=== PATIENT | female | born 1990 | race Hispanic/Latino ===

== ENCOUNTER 2017-12-07 00:04 | Emergency (ER) | payer MEDICAID ==
[2012-03-31 19:16] VITALS: BP 132/64
--- NOTE | 2017-12-07 00:29 | ER ---
Nurse's Notes [facility] Name: Anastasia Childress Age: 27 yrs Sex: Female : 1990 Arrival Date: 12/07/2017 Time: 00:06 Bed 16 Private MD: Diagnosis: Vomiting;Abdominal tenderness;Dyspnea Presentation: 12/07 00:16 Presenting complaint: Patient states: nausea, dizziness and SOB. pt dx UTI and ak1 chlamydia "a few weeks ago but just barley got the meds today" pt stated her anxiety "has been really bad today". Transition of care: patient was not received from another setting of care. Onset of symptoms is unknown. Initial Sepsis Screen: Does the patient meet any 2 criteria? No. Patient's initial sepsis screen is negative. Does the patient have a suspected source of infection? No. Patient initial sepsis screen negative. Care prior to arrival: None. 00:16 Method Of Arrival: Ambulatory ak1 00:16 Acuity: MOISES 3 ak1 Triage Assessment: 00:18 General: Appears in no apparent distress. Behavior is calm, cooperative. 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 - Social history:: Smoking status: Patient/guardian denies using tobacco. Screenin:19 Abuse screen: Denies threats or abuse. Denies injuries from another. Nutritional ak1 screening: No deficits noted. Tuberculosis screening: No symptoms or risk factors identified. Fall Risk None identified. Assessment: 00:23 General: Appears in no apparent distress. comfortable, Behavior is calm, cooperative, aa1 appropriate for age. Pain: Complains of pain in abdomen Pain currently is 0 out of 10 on a pain scale. at worst was 9 out of 10 on a pain scale. Neuro: Level of Consciousness is awake, alert, obeys commands, Oriented to person, place, time, situation, Gait is steady. Respiratory: Airway is patent Respiratory effort is even, unlabored, Respiratory pattern is regular, symmetrical. GI: Abdomen is non-distended, Abd is soft and non tender X 4 quads. Reports nausea, vomiting. : No signs and/or symptoms were reported regarding the genitourinary system. EENT: No signs and/or symptoms were reported regarding the EENT system. Derm: Skin is intact, is healthy with good turgor, Skin is normal. Musculoskeletal: Circulation, motion, and sensation intact. Capillary refill < 3 seconds. 00:45 Reassessment: Patient appears in no apparent distress at this time. Patient is aa1 alert/active/playful, equal unlabored respirations, skin warm/dry/pink. Discussed d/c \\T\\ f/u instructions with pt; denies questions or concerns at this time. Vital Signs: 00:15 BP 120 / 77; Pulse 79; Resp 18; Temp 97.9(O); Pulse Ox 98% on R/A; Weight 65.77 kg (R); ak1 Height 4 ft. 11 in. (149.86 cm) (R); Pain 0/10; 00:15 Body Mass Index 29.29 (65.77 kg, 149.86 cm) ak1 ED Course: 00:06 Patient arrived in ED. es 00:13 Salas Mcleod MD is Attending Physician. mei 00:17 Triage completed. ak1 00:18 Kaylyn Stoddard, RN is Primary Nurse. aa1 00:18 Arm band placed on Patient placed in an exam room, on a stretcher, Patient notified of ak1 wait time. 00:19 Patient has correct armband on for positive identification. Bed in low position. Call ak1 light in reach. Side rails up X 1. Pulse ox on. NIBP on. 00:23 Urine collected: clean catch specimen, clear. aa1 00:45 No provider procedures requiring assistance completed. Patient did not have IV access aa1 during this emergency room visit. Administered Medications: 00:44 Drug: Zofran 4 mg Route: PO; aa1 00:44 Follow up: Response: Medication administered at discharge. aa1 Outcome: 00:29 Discharge ordered by . mei 00:45 Discharged to home ambulatory. aa1 00:45 Condition: good 00:45 Discharge instructions given to patient, Instructed on discharge instructions, follow up and referral plans. medication usage, Demonstrated understanding of instructions, follow-up care, medications, Prescriptions given X 4. 00:46 Patient left the ED. aa1 Signatures: Kaylyn Stoddard RN RN aa1 Salas Mcleod MD MD cha Salyer, Edna es Krenek, Amber RN RN ak1
--- NOTE | 2017-12-07 00:29 | EDPHYS ---
Physician Documentation [facility] Name: Anastasia Childress Age: 27 yrs Sex: Female : 1990 Arrival Date: 12/07/2017 Time: 00:06 Bed 16 Private MD: ED Physician Salas Mcleod HPI: 12/07 00:24 This 27 yrs old Female presents to ER via Ambulatory with complaints of mei Vomiting, Headache, Shortness Of Breath, Kidney problem. 00:24 The patient presents to the emergency department with nausea, vomiting, abdominal pain, mei of the epigastric area, right upper quadrant and left upper quadrant. Onset: The symptoms/episode began/occurred 2 day(s) ago. Possible causes: unknown. The symptoms are aggravated by nothing. The symptoms are alleviated by nothing. Associated signs and symptoms: The patient has no apparent associated signs or symptoms. Severity of symptoms: At their worst the symptoms were mild in the emergency department the symptoms are unchanged. The patient has not experienced similar symptoms in the past. 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 - Social history:: Smoking status: Patient/guardian denies using tobacco. ROS: 00:25 Constitutional: Negative for fever, chills, and weight loss, Eyes: Negative for injury, mei pain, redness, and discharge, ENT: Negative for injury, pain, and discharge, Neck: Negative for injury, pain, and swelling, Cardiovascular: Negative for chest pain, palpitations, and edema, Back: Negative for injury and pain, : Negative for injury, bleeding, discharge, and swelling, MS/Extremity: Negative for injury and deformity, Skin: Negative for injury, rash, and discoloration, Neuro: Negative for headache, weakness, numbness, tingling, and seizure, Psych: Negative for depression, anxiety, suicide ideation, homicidal ideation, and hallucinations, Allergy/Immunology: Negative for hives, rash, and allergies, Endocrine: Negative for neck swelling, polydipsia, polyuria, polyphagia, and marked weight changes, Hematologic/Lymphatic: Negative for swollen nodes, abnormal bleeding, and unusual bruising. 00:25 Respiratory: Positive for cough, with no reported sputum. 00:25 Abdomen/GI: Positive for abdominal pain, of the epigastric area, right upper quadrant and left upper quadrant. Exam: 00:25 Constitutional: This is a well developed, well nourished patient who is awake, alert, mei and in no acute distress. Head/Face: Normocephalic, atraumatic. Eyes: Pupils equal round and reactive to light, extra-ocular motions intact. Lids and lashes normal. Conjunctiva and sclera are non-icteric and not injected. Cornea within normal limits. Periorbital areas with no swelling, redness, or edema. ENT: Nares patent. No nasal discharge, no septal abnormalities noted. Tympanic membranes are normal and external auditory canals are clear. Oropharynx with no redness, swelling, or masses, exudates, or evidence of obstruction, uvula midline. Mucous membranes moist. Neck: Trachea midline, no thyromegaly or masses palpated, and no cervical lymphadenopathy. Supple, full range of motion without nuchal rigidity, or vertebral point tenderness. No Meningismus. Chest/axilla: Normal chest wall appearance and motion. Nontender with no deformity. No lesions are appreciated. Cardiovascular: Regular rate and rhythm with a normal S1 and S2. No gallops, murmurs, or rubs. Normal PMI, no JVD. No pulse deficits. Respiratory: Lungs have equal breath sounds bilaterally, clear to auscultation and percussion. No rales, rhonchi or wheezes noted. No increased work of breathing, no retractions or nasal flaring. Back: No spinal tenderness. No costovertebral tenderness. Full range of motion. Skin: Warm, dry with normal turgor. Normal color with no rashes, no lesions, and no evidence of cellulitis. MS/ Extremity: Pulses equal, no cyanosis. Neurovascular intact. Full, normal range of motion. Neuro: Awake and alert, GCS 15, oriented to person, place, time, and situation. Cranial nerves II-XII grossly intact. Motor strength 5/5 in all extremities. Sensory grossly intact. Cerebellar exam normal. Normal gait. Psych: Awake, alert, with orientation to person, place and time. Behavior, mood, and affect are within normal limits. 00:25 Abdomen/GI: Inspection: abdomen appears normal, Bowel sounds: normal, Palpation: mild abdominal tenderness, in the epigastric area, right upper quadrant and left upper quadrant, Liver: no appreciated palpable abnormalities, Hernia: not appreciated. Vital Signs: 00:15 BP 120 / 77; Pulse 79; Resp 18; Temp 97.9(O); Pulse Ox 98% on R/A; Weight 65.77 kg (R); ak1 Height 4 ft. 11 in. (149.86 cm) (R); Pain 0/10; 00:15 Body Mass Index 29.29 (65.77 kg, 149.86 cm) ak1 MDM: 00:13 Patient medically screened. [facility] 00:27 Data reviewed: vital signs, nurses notes, lab test result(s), urinalysis. [facility] 12/07 00:29 Order name: Urine Dipstick--Ancillary (enter results) [facility] 12/07 00:29 Order name: Urine --Ancillary (enter results) [facility] 12/07 00:24 Order name: Urine Dipstick-Ancillary (obtain specimen); Complete Time: 00:27 [facility] 12/07 00:24 Order name: Urine Test (obtain specimen); Complete Time: 00:27 [facility] Administered Medications: 00:44 Drug: Zofran 4 mg Route: PO; aa1 00:44 Follow up: Response: Medication administered at discharge. aa1 Disposition: 12/07/17 00:29 Discharged to Home. Impression: Vomiting, Abdominal tenderness, Dyspnea. - Condition is Stable. - Discharge Instructions: Abdominal Pain, Adult, Nausea and Vomiting, Nausea and Vomiting, [id number]. - Prescriptions for Bentyl 20 mg Oral Tablet - take 1 tablet by ORAL route every 6 hours As needed; 20 tablet. Pepcid 20 mg Oral Tablet - take 1 tablet by ORAL route every 12 hours for 10 days; 20 tablet. Zofran 4 mg Oral Tablet - take 1 tablet by ORAL route every 12 hours As needed; 14 tablet. Zithromax 1 gram Oral Packet - take 1 gram by ORAL route one time as a single dose; 1 packet. - Medication Reconciliation Form, Thank You Letter, Antibiotic Education, Prescription Opioid Use form. - Follow up: Private Physician; When: 2 - 3 days; Reason: Recheck today's complaints, Continuance of care, Re-evaluation by your physician. - Problem is new. - Symptoms have improved. Signatures: Dispatcher [employer] Kaylyn Mathias, RN RN aa1 Salas Mcleod MD MD cha Krenek, Amber RN RN ak1
[2017-12-07] MEDS ORDERED: ONDANSETRON 4 MG (ODT) TAB ONE (00:37)
[2017-12-07 01:56] LABS: Urine Blood NEGATIVE (NEG); Urine Glucose NEGATIVE (NEG); Urine Protein NEGATIVE (NEG); Urine pH 6.5 (5.0-7.0)
== END 2017-12-07 00:46 | disposition home or self-care (01) ==
LOC: ER 00:04
DX: R10.819 Abdominal tenderness, unspecified site (principal); R06.00 Dyspnea, unspecified; F32.9 Major depressive disorder, single episode, unspecified; F41.9 Anxiety disorder, unspecified; Z85.41 Personal history of malignant neoplasm of cervix uteri; Z88.1 Allergy status to other antibiotic agents; Z88.2 Allergy status to sulfonamides
CPT/HCPCS: 81003; 81025; 99284

== ENCOUNTER 2018-02-08 20:59 | Emergency (ER) | payer MEDICAID ==
[2018-02-08 21:42] LABS: Urine Blood NEGATIVE (NEG); Urine Glucose NEGATIVE (NEG); Urine Protein NEGATIVE (NEG)
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
[2018-02-09 08:33] VITALS: BP 111/68; TEMP 98.1; O2SAT 100
== END 2018-02-08 22:05 | disposition home or self-care (01) ==
LOC: ER 20:59
DX: S40.022A Contusion of left upper arm, initial encounter (principal); V49.9XXA Car occupant (driver) (passenger) injured in unspecified traffic accident, initial encounter; Y92.410 Unspecified street and highway as the place of occurrence of the external cause; R35.0 Frequency of micturition; Z88.1 Allergy status to other antibiotic agents; Z88.2 Allergy status to sulfonamides; F41.9 Anxiety disorder, unspecified; G93.5 Compression of brain; F32.9 Major depressive disorder, single episode, unspecified; G43.909 Migraine, unspecified, not intractable, without status migrainosus; Z85.41 Personal history of malignant neoplasm of cervix uteri
CPT/HCPCS: 81003; 81025; 99281

== ENCOUNTER 2018-02-17 17:26 | Emergency (ER) | payer MEDICAID ==
[2018-02-17] MEDS ORDERED: ONDANSETRON 4 MG (ODT) TAB ONE (18:41)
[2018-02-17] MEDS ORDERED: KETOROLAC 30 MG/ML INJ ONE (18:41)
--- NOTE | 2018-02-17 18:59 | RAD REPORT ---
EXAM DESCRIPTION: RAD - Chest Pa And Lat (2 Views) - 02/17/2018 6:46 pm CLINICAL HISTORY: CHEST PAIN Chest pain. COMPARISON: Chest Single View dated 10/04/2016; Chest Single View dated 12/24/2015; CHEST SINGLE VIEW d ated 01/29/2013; CHEST SINGLE VIEW dated 12/10/2012Chest Single View dated 10/04/2016; Chest Single View dated 12/24/2015; CHEST SINGLE VIEW dated 01/29/2013; CHEST SINGLE VIEW dated 12/10/2012; Abdomen Pelvis W Contrast dated 05/24/2017 FINDINGS: The lungs are clear. The heart is normal in size. No displaced fractures. IMPRESSION: No acute or concerning finding suspected.
--- NOTE | 2018-02-17 20:21 | EDPHYS ---
Physician Documentation [facility] Name: Anastasia Childress Age: 28 yrs Sex: Female : 1990 Arrival Date: 02/17/2018 Time: 17:29 Bed 17 Private MD: Fred Godinez E ED Physician Jovani Vital HPI: 02/17 18:27 This 28 yrs old Female presents to ER via Ambulatory with complaints of Back cp Pain. 18:27 The patient presents with pain that is acute, with no known mechanism of injury. cp 18:27 The symptoms are located in the mid back with pain radiating around to bilateral chest. cp 18:27 Onset: The symptoms/episode began/occurred today. Associated signs and symptoms: cp Pertinent positives: nausea, Pertinent negatives: abdominal pain, fever, incontinence, numbness, tingling, vomiting, weakness. 18:27 The problem was sustained from unknown cause. Modifying factors: the patient symptoms cp are aggravated by deep breathing. Severity of symptoms: in the emergency department the symptoms are unchanged, despite home interventions. 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 - Social history:: Smoking status: Patient/guardian denies using tobacco. - Ebola Screening: : Patient negative for fever greater than or equal to 101.5 degrees Fahrenheit, and additional compatible Ebola Virus Disease symptoms Patient denies exposure to infectious person Patient denies travel to an Ebola-affected area in the 21 days before illness onset No symptoms or risks identified at this time. ROS: 18:30 Constitutional: Negative for body aches, chills, fever, poor PO intake. cp 18:30 Eyes: Negative for injury, pain, redness, and discharge. cp Exam: 18:35 ECG was reviewed by the Attending Physician. cp 18:38 Constitutional: The patient appears in no acute distress, alert, awake, non-toxic, well cp developed, well nourished. 18:38 Head/Face: Normocephalic, atraumatic. cp 18:38 Eyes: Pupils equal round and reactive to light, extra-ocular motions intact. Lids and lashes normal. Conjunctiva and sclera are non-icteric and not injected. Cornea within normal limits. Periorbital areas with no swelling, redness, or edema. ENT: Nares patent. No nasal discharge, no septal abnormalities noted. Tympanic membranes are normal and external auditory canals are clear. Oropharynx with no redness, swelling, or masses, exudates, or evidence of obstruction, uvula midline. Mucous membranes moist. 18:38 Neck: External neck: tenderness, that is mild, of the right occiput, ROM/movement: is normal, is supple, without pain, no range of motions limitations, no nuchal rigidity. 18:38 Chest/axilla: Inspection: normal, Palpation: crepitus, is not appreciated, tenderness, is not appreciated. 18:38 Cardiovascular: Rate: normal, Rhythm: regular, Pulses: Pulses are 2+ in right radial artery and left radial artery. Heart sounds: murmur, not appreciated, rub, not appreciated, gallop, not appreciated, Edema: is not appreciated, JVD: is not appreciated. 18:38 Respiratory: the patient does not display signs of respiratory distress, Respirations: normal, no use of accessory muscles, no retractions, no splinting, no tachypnea, labored breathing, is not present, Breath sounds: are clear throughout, no decreased breath sounds, no stridor, no wheezing. 18:38 Abdomen/GI: Inspection: abdomen appears normal, Bowel sounds: active, all quadrants, Palpation: abdomen is soft and non-tender, in all quadrants, rebound tenderness, is not appreciated, voluntary guarding, is not appreciated, involuntary guarding, is not appreciated. 18:38 Back: pain, that is mild, of the left subscapular area, right subscapular area, left mid back and right mid back, ROM is normal. 18:38 Skin: cellulitis, is not appreciated, no rash present. 18:38 Neuro: Orientation: to person, place \T\ time. Mentation: lucid, able to follow commands, Cerebellar function: is grossly normal, Motor: moves all fours, strength is normal, Sensation: no obvious gross deficits. Vital Signs: 17:41 BP 116 / 67; Pulse 82; Resp 14; Temp 97.4(TE); Pulse Ox 100% on R/A; Weight 65.77 kg lk1 (R); Height 4 ft. 11 in. (149.86 cm) (R); Pain 7/10; 19:53 BP 115 / 57; Pulse 59; Resp 16 S; Pulse Ox 100% on R/A; jd3 20:43 BP 116 / 70; Pulse 60; Resp 16; Pulse Ox 100% on R/A; mw2 17:41 Body Mass Index 29.29 (65.77 kg, 149.86 cm) lk1 MDM: 17:55 Patient medically screened. cp 20:18 Data reviewed: vital signs, nurses notes, lab test result(s), EKG, radiologic studies, cp plain films. 20:18 Test interpretation: by ED physician or midlevel provider: ECG, plain radiologic cp studies. Counseling: I had a detailed discussion with the patient and/or guardian regarding: the historical points, exam findings, and any diagnostic results supporting the discharge/admit diagnosis, lab results, radiology results, the need for outpatient follow up, a family practitioner, to return to the emergency department if symptoms worsen or persist or if there are any questions or concerns that arise at home. 02/17 18:47 Order name: Urine Dipstick--Ancillary (enter results) 02/17 18:47 Order name: Urine --Ancillary (enter results) ag 02/17 18:24 Order name: XRAY Chest Pa And Lat (2 Views); Complete Time: 19:55 cp 02/17 19:56 Interpretation: Report reviewed. 02/17 18:24 Order name: EKG; Complete Time: 18:25 cp 02/17 18:24 Order name: Urine Dipstick-Ancillary (obtain specimen); Complete Time: 18:47 cp 02/17 18:24 Order name: Urine Test (obtain specimen); Complete Time: 18:46 cp 02/17 18:24 Order name: EKG - Nurse/Tech; Complete Time: 18:46 cp 02/17 20:00 Order name: PO challenge; Complete Time: 20:13 cp EC:35 Rate is 64 beats/min. Rhythm is regular. NE interval is normal. QRS interval is cp prolonged at 104 msec. QT interval is normal. No ST changes noted. Interpreted by me. Reviewed by me. Administered Medications: 18:54 Drug: TORadol 60 mg Route: IM; Site: right deltoid; hb 20:13 Follow up: Response: No adverse reaction jd3 18:54 Drug: Zofran 4 mg Route: PO; hb 20:13 Follow up: Response: No adverse reaction jd3 Disposition: 02/17/18 20:21 Discharged to Home. Impression: Back Pain, Other chest pain. - Condition is Stable. - Discharge Instructions: Back Pain, Adult, Nonspecific Chest Pain. - Prescriptions for Naprosyn 500 mg Oral Tablet - take 1 tablet by ORAL route 2 times per day take with food; 20 tablet. Pepcid 20 mg Oral Tablet - take 1 tablet by ORAL route every 12 hours for 5 days; 10 tablet. Zofran 4 mg Oral Tablet - take 1 tablet by ORAL route every 12 hours As needed; 20 tablet. - Medication Reconciliation Form, Thank You Letter, Antibiotic Education, Prescription Opioid Use form. - Follow up: Fred Godinez MD; When: 1 - 2 days; Reason: Recheck today's complaints. - Problem is new. - Symptoms have improved. Addendum: 02/24/2018 11:30 Co-signature as Attending Physician, Jovani Vital MD I agree with the assessment and k dr plan of care. Signatures: Dispatcher [employer] EDMS Jovani Vital MD MD [facility] Salas Mooney PA PA cp Elizabeth Soto RN RN lk1 Paulina Pretty RN RN Donny Wilson RN RN jd3 Corrections: (The following items were deleted from the chart) 02/17 21:12 20:21 02/17/2018 20:21 Discharged to Home. Impression: Back Pain; Other chest pain. jd3 Condition is Stable. Forms are Medication Reconciliation Form, Thank You Letter, Antibiotic Education, Prescription Opioid Use. Follow up: Fred Godinez; When: 1 - 2 days; Reason: Recheck today's complaints. Problem is new. Symptoms have improved. cp
--- NOTE | 2018-02-17 20:21 | ER ---
Nurse's Notes [facility] Name: Anastasia Childress Age: 28 yrs Sex: Female : 1990 Arrival Date: 02/17/2018 Time: 17:29 Bed 17 Private MD: Fred Godinez E Diagnosis: Back Pain;Other chest pain Presentation: 02/17 17:39 Presenting complaint: Patient states: "I have been getting a bad pain in my upper back lk1 and in my kidneys. When I breath the pain in under my ribs. I am dehydrated too and I feel like I want to throw up.". Transition of care: patient was not received from another setting of care. Onset of symptoms was February 13, 2018. Risk Assessment: Do you want to hurt yourself or someone else? Patient reports no desire to harm self or others. Initial Sepsis Screen: Does the patient meet any 2 criteria? No. Patient's initial sepsis screen is negative. Does the patient have a suspected source of infection? No. Patient's initial sepsis screen is negative. Care prior to arrival: None. 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 - Social history:: Smoking status: Patient/guardian denies using tobacco. - Ebola Screening: : Patient negative for fever greater than or equal to 101.5 degrees Fahrenheit, and additional compatible Ebola Virus Disease symptoms Patient denies exposure to infectious person Patient denies travel to an Ebola-affected area in the 21 days before illness onset No symptoms or risks identified at this time. Screenin:30 Abuse screen: Denies threats or abuse. Denies injuries from another. Nutritional hb screening: No deficits noted. Tuberculosis screening: No symptoms or risk factors identified. Fall Risk None identified. Assessment: 18:30 General: Appears in no apparent distress. Behavior is calm, cooperative. Pain: hb Complains of pain in back Pain currently is 7 out of 10 on a pain scale. Neuro: Level of Consciousness is awake, alert, obeys commands, Oriented to person, place, time, situation. Cardiovascular: Heart tones S1 S2 present Capillary refill < 3 seconds Patient's skin is warm and dry. Respiratory: Airway is patent Trachea midline Respiratory effort is even, unlabored, Respiratory pattern is regular, symmetrical, Breath sounds are clear bilaterally. GI: No signs and/or symptoms were reported involving the gastrointestinal system. : No signs and/or symptoms were reported regarding the genitourinary system. EENT: No signs and/or symptoms were reported regarding the EENT system. Derm: No signs and/or symptoms reported regarding the dermatologic system. Skin is intact, is healthy with good turgor, Skin is pink, warm \\T\\ dry. Musculoskeletal: Reports pain in back. 19:26 Reassessment: Patient appears in no apparent distress at this time. No changes from jd3 previously documented assessment. Patient and/or family updated on plan of care and expected duration. Pain level reassessed. Patient is alert, oriented x 3, equal unlabored respirations, skin warm/dry/pink. awaiting results and disposition from provider. 20:30 Reassessment: Patient appears in no apparent distress at this time. No changes from jd3 previously documented assessment. Patient and/or family updated on plan of care and expected duration. Pain level reassessed. Patient is alert, oriented x 3, equal unlabored respirations, skin warm/dry/pink. 21:06 Reassessment: Patient appears in no apparent distress at this time. Patient and/or jd3 family updated on plan of care and expected duration. Pain level reassessed. Patient is alert, oriented x 3, equal unlabored respirations, skin warm/dry/pink. pt reported understanding of discharge instructions, even and steady gait upon discharge. Patient states feeling better. Vital Signs: 17:41 BP 116 / 67; Pulse 82; Resp 14; Temp 97.4(TE); Pulse Ox 100% on R/A; Weight 65.77 kg lk1 (R); Height 4 ft. 11 in. (149.86 cm) (R); Pain 7/10; 19:53 BP 115 / 57; Pulse 59; Resp 16 S; Pulse Ox 100% on R/A; jd3 20:43 BP 116 / 70; Pulse 60; Resp 16; Pulse Ox 100% on R/A; mw2 17:41 Body Mass Index 29.29 (65.77 kg, 149.86 cm) lk1 ED Course: 17:29 Patient arrived in ED. mr 17:29 Fred oGdinez MD is Private Physician. mr 17:40 Triage completed. lk1 17:42 Arm band placed on right wrist. lk1 17:55 Salas Mooney PA is PHCP. cp 17:55 Jovani Vital MD is Attending Physician. cp 18:26 Paulina Pretty, RN is Primary Nurse. hb 18:30 Patient has correct armband on for positive identification. Placed in gown. Bed in low hb position. Call light in reach. Side rails up X 1. 18:45 Patient moved to radiology via wheelchair. bb2 18:45 X-ray completed. Patient tolerated procedure well. bb2 18:46 XRAY Chest Pa And Lat (2 Views) In Process Unspecified. EDMS 18:46 Patient moved back from radiology. bb2 18:47 Urine collected: clean catch specimen, clear, EKG done, by ED staff, reviewed by Jovani Vital MD. 18:48 Patient has correct armband on for positive identification. Placed in gown. Bed in low mh5 position. Call light in reach. Side rails up X 1. Warm blanket given. night monitor on. Pulse ox on. NIBP on. 19:05 Primary Nurse role handed off by Paulina Pretty RN jd3 19:05 Donny Wilson RN is Primary Nurse. jd3 20:20 Fred Godinez MD is Referral Physician. cp 21:05 No provider procedures requiring assistance completed. Patient did not have IV access jd3 during this emergency room visit. Administered Medications: 18:54 Drug: TORadol 60 mg Route: IM; Site: right deltoid; hb 20:13 Follow up: Response: No adverse reaction jd3 18:54 Drug: Zofran 4 mg Route: PO; hb 20:13 Follow up: Response: No adverse reaction jd3 Outcome: 20:21 Discharge ordered by . cp 21:06 Discharged to home ambulatory. jd3 21:06 Condition: stable 21:06 Discharge instructions given to patient, Instructed on discharge instructions, follow up and referral plans. medication usage, Demonstrated understanding of instructions, follow-up care, medications, Prescriptions given X 3. 21:12 Patient left the ED. jd3 Signatures: Dispatcher [employer] EDMS Nessa Cuenca, RAYRAY Marina cp, Leah, RN RN lk1 Paulina Pretty RN RN Nessa La [facility] Donny Wilson RN RN jd3 Naida Lewis [facility] Blanka Lee [facility]
[2018-02-17 20:37] LABS: Urine Blood NEGATIVE (NEG); Urine Glucose NEGATIVE (NEG); Urine Protein NEGATIVE (NEG); Urine Specific Gravity 1.015 (1.005-1.030)
[2018-02-17 21:15] VITALS: TEMP 97.4; O2SAT 100
[2018-02-17 21:17] VITALS: BP 116/70
--- NOTE | 2018-02-18 06:24 | EKG ---
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
== END 2018-02-17 21:12 | disposition home or self-care (01) ==
LOC: ER 17:26
DX: M54.9 Dorsalgia, unspecified (principal); R07.89 Other chest pain; Z88.1 Allergy status to other antibiotic agents; Z88.2 Allergy status to sulfonamides; Z85.41 Personal history of malignant neoplasm of cervix uteri
CPT/HCPCS: 71046; 81003; 81025; 93005; 96372; 99284

== ENCOUNTER 2018-04-09 16:13 | Emergency (ER) | payer MEDICAID ==
--- NOTE | 2018-04-09 16:53 | ER ---
Nurse's Notes [facility] Name: Anastasia Childress Age: 28 yrs Sex: Female : 1990 Arrival Date: 04/09/2018 Time: 16:16 Bed 14 Private MD: Fred Godinez E Diagnosis: Nasal congestion Presentation: 04/09 16:24 Presenting complaint: Patient states: Cough congestion for 2 days. Transition of care: aj patient was not received from another setting of care. Onset of symptoms was April 07, 2018. Risk Assessment: Do you want to hurt yourself or someone else? Patient reports no desire to harm self or others. Initial Sepsis Screen: Does the patient meet any 2 criteria? No. Patient's initial sepsis screen is negative. Does the patient have a suspected source of infection? No. Patient's initial sepsis screen is negative. Care prior to arrival: None. 16:24 Method Of Arrival: Ambulatory 16:24 Acuity: MOISES 4 aj Triage Assessment: 16:26 General: Appears in no apparent distress. comfortable, Behavior is calm, cooperative, aj appropriate for age. Pain: Denies pain. EENT: Reports nasal congestion nasal discharge. Neuro: Level of Consciousness is awake, alert, obeys commands, Oriented to person, place, time, situation, Appropriate for age. Respiratory: Reports cough that is Breath sounds are clear bilaterally. Derm: Skin is intact, is healthy with good turgor, Skin is pink, warm \T\ dry. normal. 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 - Social history:: Smoking status: Patient uses tobacco products, denies chronic smoking, but will smoke occasionally. - Ebola Screening: : Patient negative for fever greater than or equal to 101.5 degrees Fahrenheit, and additional compatible Ebola Virus Disease symptoms Patient denies exposure to infectious person Patient denies travel to an Ebola-affected area in the 21 days before illness onset No symptoms or risks identified at this time. Screenin:48 Abuse screen: Denies threats or abuse. Nutritional screening: No deficits noted. tl3 Tuberculosis screening: No symptoms or risk factors identified. Fall Risk None identified. Assessment: 16:48 General: Appears uncomfortable, well groomed, well developed, well nourished, Behavior tl3 is calm, cooperative, appropriate for age. Pain: Complains of pain in sore throat. Cardiovascular: Heart tones S1 S2 present. Respiratory: Airway is patent Respiratory effort is even, unlabored, Respiratory pattern is regular, symmetrical, Breath sounds are clear bilaterally. GI: No signs and/or symptoms were reported involving the gastrointestinal system. : No signs and/or symptoms were reported regarding the genitourinary system. EENT: Oral mucosa is moist. Throat is reddened. Derm: Musculoskeletal: 16:52 EENT: Reports nasal congestion since two days nasal discharge. tl3 17:04 Reassessment: Patient appears in no apparent distress at this time. No changes from tl3 previously documented assessment. Patient and/or family updated on plan of care and expected duration. Pain level reassessed. Patient is alert, oriented x 3, equal unlabored respirations, skin warm/dry/pink. Vital Signs: 16:26 BP 116 / 74; Pulse 94; Resp 18; Temp 98.5; Pulse Ox 100% on R/A; Weight 68.95 kg; aj Height 4 ft. 11 in. (149.86 cm); 17:04 BP 132 / 74; Pulse 87; Resp 18; Pulse Ox 100% on R/A; tl3 16:26 Body Mass Index 30.70 (68.95 kg, 149.86 cm) aj ED Course: 16:16 Patient arrived in ED. mr 16:16 Fred Godinez MD is Private Physician. mr 16:23 Jeni Cannon FNP-C [facility]. snw 16:23 Dominic Pendleton MD is Attending Physician. snw 16:25 Triage completed. aj 16:26 Arm band placed on right wrist. Patient placed in an exam room. aj 16:37 Georgette Martinez, RN is Primary Nurse. tl3 16:48 Patient has correct armband on for positive identification. Pulse ox on. NIBP on. tl3 16:48 No provider procedures requiring assistance completed. Patient did not have IV access tl3 during this emergency room visit. 16:52 Fred Godinez MD is Referral Physician. snw Administered Medications: No medications were administered Outcome: 16:52 Discharge ordered by . snw 17:04 Discharged to home ambulatory. tl3 17:04 Condition: good 17:04 Discharge instructions given to patient, Instructed on discharge instructions, follow up and referral plans. medication usage, Demonstrated understanding of instructions, follow-up care, medications, Prescriptions given X 2. 17:05 Patient left the ED. tl3 Signatures: Ally Ford, RN RN Jeni Moreno, TWISTING FRAME CHANGER-C TWISTING FRAME CHANGER-Csnw Nessa Cuenca Tammy, ANDREAS RN tl3
--- NOTE | 2018-04-09 16:53 | EDPHYS ---
Physician Documentation [facility] Name: Anastasia Childress Age: 28 yrs Sex: Female : 1990 Arrival Date: 04/09/2018 Time: 16:16 Bed 14 Private MD: Fred Godinez E ED Physician Dominic Pendleton HPI: 04/09 16:58 This 28 yrs old Female presents to ER via Ambulatory with complaints of Cough, snw Congestion, Sore Throat. 16:58 The patient or guardian reports cough, with no sputum, severe nasal congestion. Onset: snw The symptoms/episode began/occurred 2 day(s) ago, and became persistent. Modifying factors: The symptoms are alleviated by nothing. Associated signs and symptoms: Pertinent positives: sore throat. It is unknown whether or not the patient has had similar symptoms in the past. It is unknown whether or not the patient has recently seen a physician. 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 - Social history:: Smoking status: Patient uses tobacco products, denies chronic smoking, but will smoke occasionally. - Ebola Screening: : Patient negative for fever greater than or equal to 101.5 degrees Fahrenheit, and additional compatible Ebola Virus Disease symptoms Patient denies exposure to infectious person Patient denies travel to an Ebola-affected area in the 21 days before illness onset No symptoms or risks identified at this time. ROS: 16:57 Constitutional: Negative for fever, chills, and weight loss, Eyes: Negative for injury, snw pain, redness, and discharge, Neck: Negative for injury, pain, and swelling, Cardiovascular: Negative for chest pain, palpitations, and edema, Abdomen/GI: Negative for abdominal pain, nausea, vomiting, diarrhea, and constipation, Back: Negative for injury and pain, : Negative for injury, bleeding, discharge, and swelling, MS/Extremity: Negative for injury and deformity, Skin: Negative for injury, rash, and discoloration, Neuro: Negative for headache, weakness, numbness, tingling, and seizure. 16:57 ENT: Positive for nasal discharge, sinus congestion, sore throat. 16:57 Respiratory: Positive for cough. Exam: 16:54 Constitutional: This is a well developed, well nourished patient who is awake, alert, snw and in no acute distress. Head/Face: Normocephalic, atraumatic. Eyes: Pupils equal round and reactive to light, extra-ocular motions intact. Lids and lashes normal. Conjunctiva and sclera are non-icteric and not injected. Cornea within normal limits. Periorbital areas with no swelling, redness, or edema. Neck: Trachea midline, no thyromegaly or masses palpated, and no cervical lymphadenopathy. Supple, full range of motion without nuchal rigidity, or vertebral point tenderness. No Meningismus. Chest/axilla: Normal chest wall appearance and motion. Nontender with no deformity. No lesions are appreciated. Cardiovascular: Regular rate and rhythm with a normal S1 and S2. No gallops, murmurs, or rubs. Normal PMI, no JVD. No pulse deficits. Abdomen/GI: Soft, non-tender, with normal bowel sounds. No distension or tympany. No guarding or rebound. No evidence of tenderness throughout. Back: No spinal tenderness. No costovertebral tenderness. Full range of motion. Skin: Warm, dry with normal turgor. Normal color with no rashes, no lesions, and no evidence of cellulitis. MS/ Extremity: Pulses equal, no cyanosis. Neurovascular intact. Full, normal range of motion. Neuro: Awake and alert, GCS 15, oriented to person, place, time, and situation. Cranial nerves II-XII grossly intact. Motor strength 5/5 in all extremities. Sensory grossly intact. Cerebellar exam normal. Normal gait. Psych: Awake, alert, with orientation to person, place and time. Behavior, mood, and affect are within normal limits. 16:54 ENT: External ear(s): are unremarkable, Ear canal(s): are normal, TM's: are normal, Nose: Nasal mucosa: edematous. 16:54 Respiratory: the patient does not display signs of respiratory distress, Respirations: normal, Breath sounds: decreased breath sounds, that are moderate, are scattered. Vital Signs: 16:26 BP 116 / 74; Pulse 94; Resp 18; Temp 98.5; Pulse Ox 100% on R/A; Weight 68.95 kg; aj Height 4 ft. 11 in. (149.86 cm); 17:04 BP 132 / 74; Pulse 87; Resp 18; Pulse Ox 100% on R/A; tl3 16:26 Body Mass Index 30.70 (68.95 kg, 149.86 cm) aj MDM: 16:37 Patient medically screened. snw 16:57 Data reviewed: vital signs, nurses notes. Data interpreted: Pulse oximetry: on room air snw is 100 %. Interpretation: normal. Counseling: I had a detailed discussion with the patient and/or guardian regarding: the historical points, exam findings, and any diagnostic results supporting the discharge/admit diagnosis, the need for outpatient follow up, to return to the emergency department if symptoms worsen or persist or if there are any questions or concerns that arise at home. Special discussion: Based on the history and exam findings, there is no indication for further emergent testing or inpatient evaluation. I discussed with the patient/guardian the need to see the primary care provider for further evaluation of the symptoms. 16:59 Refusal of service: The patient/guardian displays adequate decision making capability snw and despite a detailed discussion of alternatives, benefits, risks, and consequences refuses: Medications, decadron, for fear that it will trigger anxiety. Administered Medications: No medications were administered Disposition: 18:46 Co-signature as Attending Physician, Dominic Pendleton MD. Disposition: 04/09/18 16:52 Discharged to Home. Impression: Nasal congestion. - Condition is Stable. - Discharge Instructions: Upper Respiratory Infection, Adult. - Prescriptions for Flonase Allergy Relief 50 mcg/actuation Nasal spray,suspension - inhale 2 spray by INTRANASAL route once daily; 1 Cartridge. Albuterol Sulfate 90 mcg/actuation - inhale 1-2 puff by INHALATION route every 4-6 hours; 1 Inhaler. - Work release form, Medication Reconciliation Form, Thank You Letter, Antibiotic Education, Prescription Opioid Use form. - Follow up: Fred Godinez MD; When: 2 - 3 days; Reason: Recheck today's complaints, Continuance of care, Re-evaluation by your physician. Follow up: Emergency Department; When: As needed; Reason: Worsening of condition. Signatures: Ally Ford, RN RN Jeni Moreno, PLASTIC WORKER-C PLASTIC WORKER-Csnw Dominic Pendleton MD MD Georgette Martinez RN RN tl3 Corrections: (The following items were deleted from the chart) 17:05 16:52 04/09/2018 16:52 Discharged to Home. Impression: Nasal congestion. Condition is tl3 Stable. Forms are Medication Reconciliation Form, Thank You Letter, Antibiotic Education, Prescription Opioid Use. Follow up: Fred Godinez; When: 2 - 3 days; Reason: Recheck today's complaints, Continuance of care, Re-evaluation by your physician. Follow up: Emergency Department; When: As needed; Reason: Worsening of condition. snw
[2018-04-09 17:14] VITALS: TEMP 98.5; O2SAT 100
[2018-04-09 17:16] VITALS: BP 132/74
== END 2018-04-09 17:05 | disposition home or self-care (01) ==
LOC: ER 16:13
DX: R09.81 Nasal congestion (principal); Z88.3 Allergy status to other anti-infective agents; Z88.2 Allergy status to sulfonamides; Z72.0 Tobacco use
CPT/HCPCS: 99283

== ENCOUNTER 2018-04-19 22:48 | Emergency (ER) | payer MEDICAID ==
[2018-04-19 23:49] LABS: Absolute Lymphocytes (CBC) 2.9 K/uL (0.7-4.9); Absolute Monocytes 0.6 K/uL (0.1-1.3); Absolute Neutrophil 4.4 K/uL (1.8-8.0); Basophils % 0.9 % (0-1.3); Eosinophils % 1.1 % (0-4.4); Hematocrit 35.6 % (36.0-45.0); Lymphocytes % 36.2 % (15.3-44.8); MCH 31.3 pg (27.0-35.0); MCV 93.5 fL (80-100); MPV 9.5 fL (7.6-11.3); Monocytes % 7.4 % (3.3-12.3); RBC Red Blood Cell Count 3.81 M/uL (3.86-4.86)
[2018-04-19 23:59] LABS: ALT/SGPT 16 U/L (12-78); AST/SGOT 15 U/L (15-37); Albumin 3.6 g/dL (3.4-5.0); Alkaline Phosphatase 77 U/L (45-117); BUN Blood Urea Nitrogen 12 mg/dL (7-18); Bicarbonate 24 mmol/L (21-32); Bilirubin Direct < 0.1 mg/dL (0-0.2); Bilirubin Total 0.2 mg/dL (0.2-1.0); Glucose Level 94 mg/dL (74-106); Lipase 121 U/L (73-393); Potassium 3.8 mmol/L (3.5-5.1); Protein, Total 7.4 g/dL (6.4-8.2); Sodium Level 141 mmol/L (136-145)
[2018-04-20 00:03] LABS: Urine Blood NEGATIVE (NEG); Urine Glucose NEGATIVE (NEG); Urine Protein NEGATIVE (NEG); Urine Specific Gravity 1.025 (1.005-1.030)
[2018-04-20 00:07] LABS: Urine Culture Reflex Order NOT NEEDED
[2018-04-20 00:09] LABS: Urine Bacteria >50 /HPF (<20); Urine RBC <5 /HPF (NONE SEEN)
--- NOTE | 2018-04-20 01:17 | EDPHYS ---
Physician Documentation [facility] Name: Anastasia Childress Age: 28 yrs Sex: Female : 1990 Arrival Date: 04/19/2018 Time: 22:48 Bed 5 Private MD: ED Physician Aung Cannon HPI: 04/19 23:25 This 28 yrs old Female presents to ER via Ambulatory with complaints of jr8 Abdominal Pain - rad to epigastric. 23:25 The patient presents with abdominal pain in the epigastric area, in the right upper jr8 quadrant. Onset: The symptoms/episode began/occurred acutely, today. The symptoms radiate to right back. Associated signs and symptoms: Pertinent positives: nausea and vomiting. The symptoms are described as stabbing. Modifying factors: The symptoms are alleviated by nothing, the symptoms are aggravated by food. Severity of pain: At its worst the pain was moderate in the emergency department the pain is unchanged. The patient has not experienced similar symptoms in the past. The patient has not recently seen a physician. 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 - Social history:: Smoking status: Patient uses tobacco products, denies chronic smoking, but will smoke occasionally. - Ebola Screening: : No symptoms or risks identified at this time. ROS: 23:25 Eyes: Negative for injury, pain, redness, and discharge, ENT: Negative for injury, jr8 pain, and discharge, Neck: Negative for injury, pain, and swelling, Cardiovascular: Negative for chest pain, palpitations, and edema, Respiratory: Negative for shortness of breath, cough, wheezing, and pleuritic chest pain, Back: Negative for injury and pain, MS/Extremity: Negative for injury and deformity, Skin: Negative for injury, rash, and discoloration, Neuro: Negative for headache, weakness, numbness, tingling, and seizure. 23:25 Abdomen/GI: Positive for abdominal pain, nausea and vomiting, Negative for diarrhea, constipation, abdominal cramps, abdominal distension, anorexia, dysphagia, hematemesis, black/tarry stool, rectal pain, rectal bleeding, bowel incontinence, flatulence. Exam: 23:25 Eyes: Pupils equal round and reactive to light, extra-ocular motions intact. Lids and jr8 lashes normal. Conjunctiva and sclera are non-icteric and not injected. Cornea within normal limits. Periorbital areas with no swelling, redness, or edema. ENT: Nares patent. No nasal discharge, no septal abnormalities noted. Tympanic membranes are normal and external auditory canals are clear. Oropharynx with no redness, swelling, or masses, exudates, or evidence of obstruction, uvula midline. Mucous membranes moist. Neck: Trachea midline, no thyromegaly or masses palpated, and no cervical lymphadenopathy. Supple, full range of motion without nuchal rigidity, or vertebral point tenderness. No Meningismus. Cardiovascular: Regular rate and rhythm with a normal S1 and S2. No gallops, murmurs, or rubs. Normal PMI, no JVD. No pulse deficits. Respiratory: Lungs have equal breath sounds bilaterally, clear to auscultation and percussion. No rales, rhonchi or wheezes noted. No increased work of breathing, no retractions or nasal flaring. Back: No spinal tenderness. No costovertebral tenderness. Full range of motion. Skin: Warm, dry with normal turgor. Normal color with no rashes, no lesions, and no evidence of cellulitis. MS/ Extremity: Pulses equal, no cyanosis. Neurovascular intact. Full, normal range of motion. Neuro: Awake and alert, GCS 15, oriented to person, place, time, and situation. Cranial nerves II-XII grossly intact. Motor strength 5/5 in all extremities. Sensory grossly intact. Cerebellar exam normal. Normal gait. 23:25 Abdomen/GI: Inspection: abdomen appears normal, Bowel sounds: active, all quadrants, Palpation: soft, in all quadrants, mild abdominal tenderness, in the epigastric area, moderate abdominal tenderness, in the right upper quadrant, mass, is not appreciated, rebound tenderness, is not appreciated, voluntary guarding, is not appreciated, involuntary guarding, is not appreciated, no appreciated organomegaly, Indicators: McBurney's point is not tender, Hameed's sign is positive, Rovsing's sign is negative. Vital Signs: 23:06 BP 109 / 70; Pulse 73; Resp 16; Temp 98.4(O); Pulse Ox 99% on R/A; Weight 68.04 kg; lp1 Height 4 ft. 11 in. (149.86 cm); 04/20 00:48 BP 112 / 48; Pulse 65; Resp 16; Pulse Ox 99% on R/A; ak1 01:27 BP 101 / 73; Pulse 55; Resp 16; Temp 98.2; Pulse Ox 99% on R/A; ak1 04/19 23:06 Body Mass Index 30.30 (68.04 kg, 149.86 cm) lp1 MDM: 04/19 23:00 Patient medically screened. [facility] 04/20 01:16 Differential diagnosis: cholecystitis, Cholelithiasis, gastritis, gastroesophageal jr8 reflux disease, non-specific abd pain, pancreatitis, Peptic Ulcer Disease, Perf. Duodenal Ulcer, Perf. Gastric Ulcer. Data reviewed: vital signs, nurses notes, lab test result(s), radiologic studies, CT scan, and as a result, I will discharge patient. Data interpreted: Pulse oximetry: on room air is 99 %. Interpretation: normal. Counseling: I had a detailed discussion with the patient and/or guardian regarding: the historical points, exam findings, and any diagnostic results supporting the discharge/admit diagnosis, lab results, radiology results, the need for outpatient follow up, a last sawyer, to return to the emergency department if symptoms worsen or persist or if there are any questions or concerns that arise at home. 04/19 23:09 Order name: Basic Metabolic Panel [facility] 04/19 23:09 Order name: CBC with Diff [facility] 04/19 23:09 Order name: Creatinine for Radiology [facility] 04/19 23:09 Order name: Hepatic Function [facility] 04/19 23:09 Order name: Lipase [facility] 04/19 23:10 Order name: Basic Metabolic Panel; Complete Time: 00:00 [facility] 04/19 23:10 Order name: CBC with Automated Diff; Complete Time: 23:54 [facility] 04/19 23:10 Order name: Creatinine (Radiology Only); Complete Time: 00:46 [facility] 04/19 23:10 Order name: Liver (Hepatic) Function; Complete Time: 00:00 [facility] 04/19 23:10 Order name: Lipase; Complete Time: 00:00 [facility] 04/19 23:33 Order name: Urine Culture bb 04/19 23:33 Order name: Urine Microscopic Only bb 04/19 23:33 Order name: Urine Culture [facility] 04/19 23:33 Order name: Urine Microscopic Only; Complete Time: 00:46 [facility] 04/19 23:09 Order name: Urine Test (obtain specimen); Complete Time: 23:24 [facility] 04/19 23:09 Order name: IV Saline Lock; Complete Time: 23:24 [facility] 04/19 23:09 Order name: Labs collected and sent; Complete Time: 23:24 [facility] 04/19 23:09 Order name: Urine Dipstick-Ancillary (obtain specimen); Complete Time: 23:24 [facility] 04/19 23:47 Order name: Urine Dipstick--Ancillary (enter results); Complete Time: 00:46 [facility] 04/19 23:47 Order name: Urine --Ancillary (enter results); Complete Time: 00:46 [facility] 04/20 00:03 Order name: CT Abd/Pelvis - W/Contrast [facility] Administered Medications: No medications were administered Disposition: 04/21 00:59 Co-signature as Attending Physician, Aung Cannon MD I agree with the assessment and 4 plan of care. Attestation: The patient's history, exam findings, diagnostics, and a summary of any interventions or procedures was reviewed in detail with Albino SEO. Disposition: 04/20/18 01:17 Discharged to Home. Impression: Right upper quadrant abdominal tenderness, Epigastric pain. - Condition is Stable. - Discharge Instructions: Abdominal Pain, Adult, Cholecystitis, Gastritis, Adult. - Prescriptions for Nexium 20 mg Oral Capsule - take 1 capsule by ORAL route once daily; 20 capsule. Zofran 4 mg Oral Tablet - take 1 tablet by ORAL route every 12 hours As needed; 20 tablet. - Medication Reconciliation Form, Thank You Letter, Antibiotic Education, Prescription Opioid Use form. - Follow up: Amy Babcock MD; When: 2 - 3 days; Reason: Recheck today's complaints, Continuance of care, Re-evaluation by your physician. - Problem is new. - Symptoms have improved. Signatures: Dispatcher [employer] EDMS Marilyn Perez RN RN lp1 Albino Schwartz PA PA jr8 Joie Brumfield RN RN ak1 Aung Cannon MD MD tw4 Corrections: (The following items were deleted from the chart) 04/20 01:34 01:17 04/20/2018 01:17 Discharged to Home. Impression: Right upper quadrant abdominal ak1 tenderness; Epigastric pain. Condition is Stable. Forms are Medication Reconciliation Form, Thank You Letter, Antibiotic Education, Prescription Opioid Use. Follow up: Amy Babcock; When: 2 - 3 days; Reason: Recheck today's complaints, Continuance of care, Re-evaluation by your physician. Problem is new. Symptoms have improved. jr8
--- NOTE | 2018-04-20 01:17 | ER ---
Nurse's Notes [facility] Name: Anastasia Childress Age: 28 yrs Sex: Female : 1990 Arrival Date: 04/19/2018 Time: 22:48 Bed 5 Private MD: Diagnosis: Right upper quadrant abdominal tenderness;Epigastric pain Presentation: 04/19 23:04 Presenting complaint: Patient states: Upper abdominal pain, pointing to epigastric lp1 area, x 2 days; vomiting today, states pain was worse after eating, pain radiates to back. Transition of care: patient was not received from another setting of care. Onset of symptoms was April 19, 2018. Risk Assessment: Do you want to hurt yourself or someone else? Patient reports no desire to harm self or others. Initial Sepsis Screen: Does the patient meet any 2 criteria? No. Patient's initial sepsis screen is negative. Does the patient have a suspected source of infection? No. Patient's initial sepsis screen is negative. Care prior to arrival: None. 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 - Social history:: Smoking status: Patient uses tobacco products, denies chronic smoking, but will smoke occasionally. - Ebola Screening: : No symptoms or risks identified at this time. Screenin:06 Abuse screen: Denies threats or abuse. Denies injuries from another. Nutritional lp1 screening: No deficits noted. Tuberculosis screening: No symptoms or risk factors identified. Fall Risk None identified. Assessment: 23:25 General: Appears in no apparent distress. Behavior is calm, cooperative. Pain: ak1 Complains of pain in abdomen. Neuro: No deficits noted. Cardiovascular: No deficits noted. Respiratory: No deficits noted. GI: Abdomen is round Bowel sounds present X 4 quads. Abd is soft Reports upper abdominal pain, diarrhea, nausea, vomiting, vomiting after eating chicken nuggets and barbadian fries. : No signs and/or symptoms were reported regarding the genitourinary system. EENT: No signs and/or symptoms were reported regarding the EENT system. Derm: No signs and/or symptoms reported regarding the dermatologic system. Musculoskeletal: No signs and/or symptoms reported regarding the musculoskeletal system. 04/20 00:27 Reassessment: Patient appears in no apparent distress at this time. No changes from ak1 previously documented assessment. Patient and/or family updated on plan of care and expected duration. Pain level reassessed. Patient is alert, oriented x 3, equal unlabored respirations, skin warm/dry/pink. no vomiting noted at this time. 00:47 Reassessment: pt returned from CT. . ak1 Vital Signs: 04/19 23:06 BP 109 / 70; Pulse 73; Resp 16; Temp 98.4(O); Pulse Ox 99% on R/A; Weight 68.04 kg; lp1 Height 4 ft. 11 in. (149.86 cm); 04/20 00:48 BP 112 / 48; Pulse 65; Resp 16; Pulse Ox 99% on R/A; ak1 01:27 BP 101 / 73; Pulse 55; Resp 16; Temp 98.2; Pulse Ox 99% on R/A; ak1 04/19 23:06 Body Mass Index 30.30 (68.04 kg, 149.86 cm) lp1 ED Course: 04/19 22:48 Patient arrived in ED. am2 22:57 Joie Brumfield, ANDREAS is Primary Nurse. ak1 22:59 Albino Schwartz PA is PHCP. jr8 22:59 Aung Cannon MD is Attending Physician. jr8 23:05 Triage completed. lp1 23:05 Arm band placed on. lp1 23:25 Initial lab(s) drawn, by pr, sent to lab. Urine collected: clean catch specimen. ak1 Inserted saline lock: 20 gauge in right antecubital area, using aseptic technique. Blood collected. 23:27 Patient has correct armband on for positive identification. Placed in gown. Bed in low ak1 position. Call light in reach. Side rails up X 1. Adult w/ patient. Pulse ox on. NIBP on. Door closed. Lights dimmed. Warm blanket given. 23:28 Basic Metabolic Panel Sent. ak1 23:28 CBC with Diff Sent. ak1 23:28 Creatinine for Radiology Sent. ak1 23:28 Hepatic Function Sent. ak1 23:28 Lipase Sent. ak1 23:37 Urine Microscopic Only Sent. ak1 23:37 Urine Culture Sent. ak1 04/20 00:[address] via wheelchair. jg6 00:32 CT Abd/Pelvis - W/Contrast In Process Unspecified. EDMS 00:41 CT completed. Patient tolerated procedure well. Patient moved back from CT. jg6 01:16 Amy Babcock MD is Referral Physician. jr8 01:28 No provider procedures requiring assistance completed. IV discontinued, intact, ak1 bleeding controlled, No redness/swelling at site. Pressure dressing applied. Administered Medications: No medications were administered Outcome: 01:17 Discharge ordered by . jr8 01:28 Discharged to home ambulatory, with family. ak1 01:28 Condition: good 01:28 Discharge instructions given to patient, family, Instructed on discharge instructions, follow up and referral plans. no drinking with medication, no driving heavy equipment, medication usage, Demonstrated understanding of instructions, follow-up care, medications, Prescriptions given X 2. 01:34 Patient left the ED. ak1 Addendum: 04/23/2018 17:30 Addendum: Culture Results: Positive urine culture. Patient was not prescribed i w antibiotics at discharge. Report given to BOWEN for further evaluation and then to job setter honing for follow up with patient. Phone call Attempt #1 phone not working, unable to leave voice mail. Signatures: Dispatcher [employer] Joyce Ladd RN RN iw Pena, Laura RN RN Albino Cox PA PA jr8 Joie Brumfield RN RN ak1 Ally Coleman Jessica jg6
[2018-04-20 01:40] VITALS: O2SAT 99
[2018-04-20 01:42] VITALS: BP 101/73; TEMP 98.2
--- NOTE | 2018-04-20 08:10 | RAD REPORT ---
EXAM DESCRIPTION: CT - Abdomen Pelvis W Contrast - 04/20/2018 12:32 am CLINICAL HISTORY: Abdominal pain/upper abdominal pain COMPARISON: Abdomen Pelvis W Contrast dated 05/24/2017; Abdomen Pelvis W Contrast dated 03/18/2016 ; CT ABD PELVIS W CONTRAST dated 10/09/2014<Comparisons> TECHNIQUE: Computed axial tomography of the abdomen pelvis was obtained. 100 cc Isovue-300 was admin istered intravenously. Oral contrast was not requested which limits evaluation of bowel.A preliminary report was generated by [employer] and reviewed prior to this dictation All CT scans are performed using dose optimization technique as appropriate and may include automated exposure control or mA/KV adjustment according to patient size. FINDINGS: The liver, spleen, pancreas, adrenal and kidneys appear unremarkable. There is no evidence of diverticulitis. The appendix is normal. An adnexal mass is not displayed. IMPRESSION: No acute abnormality is displayed.
== END 2018-04-20 01:34 | disposition home or self-care (01) ==
LOC: ER 22:48
DX: R10.13 Epigastric pain (principal); R10.811 Right upper quadrant abdominal tenderness; Z88.2 Allergy status to sulfonamides; Z88.1 Allergy status to other antibiotic agents
CPT/HCPCS: 36415; 74177; 80048; 80076; 81003; 81015; 81025; 83690; 85025; 87077; 87086; 87088; 87186; 99284; Q9967

== ENCOUNTER 2018-05-02 14:41 | Emergency (ER) | payer MEDICAID ==
[2018-05-02 16:01] LABS: Urine Blood TRACE (NEG); Urine Glucose NEGATIVE (NEG); Urine Protein NEGATIVE (NEG); Urine Specific Gravity 1.025 (1.005-1.030); Urine pH 6.5 (5.0-7.0)
--- NOTE | 2018-05-02 16:44 | RAD REPORT ---
EXAM DESCRIPTION: US - Abdomen Exam Limited - 05/02/2018 4:12 pm CLINICAL HISTORY: Right upper quadrant pain COMPARISON: CT study April 20 FINDINGS: No gallstones, sludge or other abnormalities within the gallbladder lumen. There is no wal l thickening or pericholecystic fluid. [place] are accentuated by contracted state. Patient was not ful ly fasting for the examination. No common duct stone or biliary tree dilatation identified. IMPRESSION: No gallbladder or biliary tree abnormality identifiable.
[2018-05-02 16:50] LABS: Urine Bacteria <20 /HPF (<20); Urine Culture Reflex Order NOT NEEDED; Urine Mucus MOD /HPF (NONE SEEN); Urine RBC <5 /HPF (NONE SEEN)
[2018-05-02 16:50] LABS: Absolute Lymphocytes (CBC) 1.9 K/uL (0.7-4.9); Absolute Monocytes 0.5 K/uL (0.1-1.3); Absolute Neutrophil 5.5 K/uL (1.8-8.0); Basophils % 0.6 % (0-1.3); Eosinophils % 1.4 % (0-4.4); Hematocrit 35.7 % (36.0-45.0); Lymphocytes % 23.3 % (15.3-44.8); MCH 31.7 pg (27.0-35.0); Monocytes % 5.8 % (3.3-12.3); RBC Red Blood Cell Count 3.88 M/uL (3.86-4.86)
[2018-05-02 17:06] LABS: ALT/SGPT 17 U/L (12-78); AST/SGOT 14 U/L (15-37); Albumin 3.6 g/dL (3.4-5.0); Alkaline Phosphatase 83 U/L (45-117); BUN Blood Urea Nitrogen 17 mg/dL (7-18); Bicarbonate 28 mmol/L (21-32); Bilirubin Direct < 0.1 mg/dL (0-0.2); Bilirubin Total 0.2 mg/dL (0.2-1.0); Glucose Level 74 mg/dL (74-106); Lipase 146 U/L (73-393); Potassium 3.7 mmol/L (3.5-5.1); Protein, Total 7.4 g/dL (6.4-8.2); Sodium Level 140 mmol/L (136-145)
--- NOTE | 2018-05-02 17:36 | EDPHYS ---
Physician Documentation [facility] Name: Anastasia Childress Age: 28 yrs Sex: Female : 1990 Arrival Date: 05/02/2018 Time: 14:44 Bed 26 Private MD: Fred Godinez E ED Physician Javon Ortiz HPI: 05/02 16:39 This 28 yrs old Female presents to ER via Ambulatory with complaints of jr8 Abdominal Pain, Chest Pain. 16:39 The patient presents with abdominal pain in the upper abdomen. Onset: The jr8 symptoms/episode began/occurred gradually, 2 week(s) ago. The symptoms radiate to chest. Associated signs and symptoms: Pertinent positives: nausea. The symptoms are described as sharp. Modifying factors: The symptoms are alleviated by nothing, the symptoms are aggravated by food. Severity of pain: At its worst the pain was moderate in the emergency department the pain has improved mildly. The patient has experienced a previous episode. The patient has been recently seen by a physician:. Patient seen in ED for abdominal pain about 2 weeks ago. Had blood work and CT with no acute findings. Was referred to GI for further evaluation. Set to have endoscopy and colonoscopy. Came back today for similar complaints . Historical: - Allergies: 15:15 Bactrim; iw 15:15 Sulfa (Sulfonamide Antibiotics); iw - Home Meds: 15:15 Fioricet 50-300-40 mg Oral cap 1 cap as needed [Active]; gabapentin 100 mg Oral cap as iw needed [Active]; Xanax 1 mg Oral tab 1 tab 3 times per day [Active]; - PMHx: 15:15 Anxiety; cervical CA; chiari malformation; Depression; Migraines; iw - PSHx: 15:15 Tubal ligation; cyst removal; iw - Immunization history:: Adult Immunizations. - Ebola Screening: : Patient negative for fever greater than or equal to 101.5 degrees Fahrenheit, and additional compatible Ebola Virus Disease symptoms Patient denies exposure to infectious person Patient denies travel to an Ebola-affected area in the 21 days before illness onset No symptoms or risks identified at this time. - Social history:: Smoking status: Patient/guardian denies using tobacco. ROS: 16:39 Eyes: Negative for injury, pain, redness, and discharge, ENT: Negative for injury, jr8 pain, and discharge, Neck: Negative for injury, pain, and swelling, Cardiovascular: Negative for chest pain, palpitations, and edema, Respiratory: Negative for shortness of breath, cough, wheezing, and pleuritic chest pain, Back: Negative for injury and pain, MS/Extremity: Negative for injury and deformity, Skin: Negative for injury, rash, and discoloration, Neuro: Negative for headache, weakness, numbness, tingling, and seizure. 16:39 Abdomen/GI: Positive for abdominal pain, nausea, Negative for vomiting, diarrhea, abdominal distension, anorexia, dysphagia, hematemesis, black/tarry stool, rectal pain, rectal bleeding, bowel incontinence, flatulence. Exam: 16:39 Cardiovascular: Regular rate and rhythm with a normal S1 and S2. No gallops, murmurs, jr8 or rubs. Normal PMI, no JVD. No pulse deficits. Respiratory: Lungs have equal breath sounds bilaterally, clear to auscultation and percussion. No rales, rhonchi or wheezes noted. No increased work of breathing, no retractions or nasal flaring. Back: No spinal tenderness. No costovertebral tenderness. Full range of motion. Skin: Warm, dry with normal turgor. Normal color with no rashes, no lesions, and no evidence of cellulitis. MS/ Extremity: Pulses equal, no cyanosis. Neurovascular intact. Full, normal range of motion. Neuro: Awake and alert, GCS 15, oriented to person, place, time, and situation. Cranial nerves II-XII grossly intact. Motor strength 5/5 in all extremities. Sensory grossly intact. Cerebellar exam normal. Normal gait. 16:39 Abdomen/GI: Inspection: abdomen appears normal, Bowel sounds: active, all quadrants, Palpation: soft, in all quadrants, mild abdominal tenderness, in the epigastric area and right upper quadrant, mass, is not appreciated, rebound tenderness, is not appreciated, voluntary guarding, is not appreciated, involuntary guarding, is not appreciated, no appreciated organomegaly, Indicators: McBurney's point is not tender, Hameed's sign is positive, Rovsing's sign is negative, Liver: no appreciated palpable abnormalities, tenderness, is not appreciated. 16:43 ECG was reviewed by the Attending Physician. [facility] Vital Signs: 15:15 BP 122 / 51; Pulse 68; Resp 16; Temp 98.2; Pulse Ox 100% on R/A; Weight 69.85 kg; iw Height 4 ft. 11 in. (149.86 cm); Pain 5/10; 16:40 BP 121 / 64; Pulse 75; Resp 20; Temp 98.1; Pulse Ox 100% on R/A; aj 15:15 Body Mass Index 31.10 (69.85 kg, 149.86 cm) iw MDM: 15:22 Patient medically screened. jr8 17:34 Data reviewed: vital signs, nurses notes, lab test result(s), radiologic studies, jr8 ultrasound, and as a result, I will discharge patient. Data interpreted: Pulse oximetry: on room air is 100 %. Interpretation: normal. 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 05/02 15:30 Order name: Urine Microscopic Only; Complete Time: 16:54 05/02 15:30 Order name: Urine Culture 05/02 15:31 Order name: Urine Dipstick--Ancillary (enter results); Complete Time: 16:39 05/02 15:31 Order name: Urine --Ancillary (enter results); Complete Time: 16:39 05/02 15:40 Order name: Basic Metabolic Panel; Complete Time: 17:07 [facility] 05/02 15:40 Order name: CBC with Diff; Complete Time: 16:54 [facility] 05/02 15:40 Order name: Creatinine for Radiology; Complete Time: 17:05 [facility] 05/02 15:40 Order name: Hepatic Function; Complete Time: 17:07 [facility] 05/02 15:40 Order name: Lipase; Complete Time: 17:07 [facility] 05/02 15:40 Order name: IV Saline Lock; Complete Time: 17:04 [facility] 05/02 15:40 Order name: Labs collected and sent; Complete Time: 17:04 [facility] 05/02 15:40 Order name: US Abdomen Limited; Complete Time: 16:47 jr8 EC:43 Rate is 62 beats/min. Rhythm is regular, Normal Sinus Rhythm. QRS [place] is Normal. NE jr8 interval is normal at 126 msec. QRS interval is normal at 96 msec. QT interval is normal at 412 msec. No Q waves. T waves are Normal. No ST changes noted. Clinical impression: Normal ECG. Interpreted by me. Reviewed by me. Administered Medications: No medications were administered Disposition: 18:26 Co-signature as Attending Physician, Javon Ortiz MD. rn Disposition: 05/02/18 17:35 Discharged to Home. Impression: Urinary tract infection, site not specified, Abdominal and pelvic pain. - Condition is Stable. - Discharge Instructions: Abdominal Pain, Adult, Urinary Tract Infection, Adult. - Prescriptions for Macrobid 100 mg Oral Capsule - take 1 capsule by ORAL route every 12 hours for 7 days; 14 capsule. - Medication Reconciliation Form, Thank You Letter, Antibiotic Education, Prescription Opioid Use form. - Follow up: Private Physician; When: 1 week; Reason: Recheck today's complaints, Continuance of care, Re-evaluation by your physician. - Problem is new. - Symptoms are unchanged. Signatures: Dispatcher [employer] EDAlly Flores RN Joyce Anders RN Javon Cordero MD MD rn Roszak, Josh, PA PA jr8 Shagufta Carrillo RN RN kr2 Corrections: (The following items were deleted from the chart) 17:47 17:35 05/02/2018 17:35 Discharged to Home. Impression: Urinary tract infection, site kr2 not specified; Abdominal and pelvic pain. Condition is Stable. Forms are Medication Reconciliation Form, Thank You Letter, Antibiotic Education, Prescription Opioid Use. Follow up: Private Physician; When: 1 week; Reason: Recheck today's complaints, Continuance of care, Re-evaluation by your physician. Problem is new. Symptoms are unchanged. jr8
--- NOTE | 2018-05-02 17:36 | ER ---
Nurse's Notes [facility] Name: Anastasia Childress Age: 28 yrs Sex: Female : 1990 Arrival Date: 05/02/2018 Time: 14:44 Bed 26 Private MD: Fred Godinez E Diagnosis: Urinary tract infection, site not specified;Abdominal and pelvic pain Presentation: 05/02 15:12 Presenting complaint: Patient states: has had sharp pain from RLQ radiating up to chest iw X 2 weeks, was seen here, followed up with GI, still having pain, also has pelvic pain, today she was at work and felt like she couldn't breathe because of the pain, felt like she wanted to pass out, also has nausea and sometimes feels like she can't empty her bladder completely. Transition of care: patient was not received from another setting of care. Onset of symptoms was April 20, 2018. Risk Assessment: Do you want to hurt yourself or someone else? Patient reports no desire to harm self or others. Initial Sepsis Screen: Does the patient meet any 2 criteria? No. Patient's initial sepsis screen is negative. Does the patient have a suspected source of infection? No. Patient's initial sepsis screen is negative. Care prior to arrival: None. 15:12 Method Of Arrival: Ambulatory iw 15:12 Acuity: MOISES 3 iw Historical: - Allergies: 15:15 Bactrim; iw 15:15 Sulfa (Sulfonamide Antibiotics); iw - Home Meds: 15:15 Fioricet 50-300-40 mg Oral cap 1 cap as needed [Active]; gabapentin 100 mg Oral cap as iw needed [Active]; Xanax 1 mg Oral tab 1 tab 3 times per day [Active]; - PMHx: 15:15 Anxiety; cervical CA; chiari malformation; Depression; Migraines; iw - PSHx: 15:15 Tubal ligation; cyst removal; iw - Immunization history:: Adult Immunizations. - Ebola Screening: : Patient negative for fever greater than or equal to 101.5 degrees Fahrenheit, and additional compatible Ebola Virus Disease symptoms Patient denies exposure to infectious person Patient denies travel to an Ebola-affected area in the 21 days before illness onset No symptoms or risks identified at this time. - Social history:: Smoking status: Patient/guardian denies using tobacco. Screenin:35 Abuse screen: Denies threats or abuse. Denies injuries from another. Nutritional aj screening: No deficits noted. Tuberculosis screening: No symptoms or risk factors identified. Fall Risk None identified. Assessment: 15:35 General: Appears in no apparent distress. comfortable, Behavior is calm, cooperative, aj appropriate for age. Pain: Complains of pain in chest, abdomen and pelvis. Neuro: Level of Consciousness is awake, alert, obeys commands, Oriented to person, place, time, situation, Appropriate for age. Cardiovascular: Reports chest pain. Respiratory: Airway is patent Respiratory effort is even, unlabored, Respiratory pattern is regular, symmetrical. GI: Abdomen is non-distended, obese, Bowel sounds present X 4 quads. Abd is soft and non tender X 4 quads. Reports lower abdominal pain, upper abdominal pain. : Reports pain in suprapubic area. Derm: Skin is intact, is healthy with good turgor, Skin is pink, warm \T\ dry. normal. 16:40 Reassessment: Patient appears in no apparent distress at this time. No changes from aj previously documented assessment. Patient and/or family updated on plan of care and expected duration. Pain level reassessed. Patient is alert, oriented x 3, equal unlabored respirations, skin warm/dry/pink. Patient requesting to eat chips, asked to stay NPO until all results are reviewed. 17:44 Reassessment: Patient appears in no apparent distress at this time. Patient and/or kr2 family updated on plan of care and expected duration. Pain level reassessed. Patient is alert, oriented x 3, equal unlabored respirations, skin warm/dry/pink. Vital Signs: 15:15 BP 122 / 51; Pulse 68; Resp 16; Temp 98.2; Pulse Ox 100% on R/A; Weight 69.85 kg; iw Height 4 ft. 11 in. (149.86 cm); Pain 5/10; 16:40 BP 121 / 64; Pulse 75; Resp 20; Temp 98.1; Pulse Ox 100% on R/A; aj 15:15 Body Mass Index 31.10 (69.85 kg, 149.86 cm) iw ED Course: 14:44 Patient arrived in ED. mr 14:45 Fred Godinez MD is Private Physician. mr 15:14 Albino Schwartz PA is PHCP. jr8 15:14 Javon Ortiz MD is Attending Physician. jr8 15:15 Ally Ford, RN is Primary Nurse. aj 15:15 Triage completed. iw 15:15 Arm band placed on. iw 15:24 EKG done, by biomedical repair technician. reviewed by Albino SEO. 3 15:35 Patient has correct armband on for positive identification. aj 15:35 No provider procedures requiring assistance completed. aj 16:07 Patient taken to ultrasound. via wheelchair. aa4 16:12 Ultrasound completed. Patient tolerated well. Patient moved back from ultrasound. aa4 16:14 US Abdomen Limited In Process Unspecified. EDMS 16:35 Inserted saline lock: 20 gauge in right antecubital area, using aseptic technique. aj Blood collected. 17:45 IV discontinued, intact, bleeding controlled, No redness/swelling at site. Pressure kr2 dressing applied. Administered Medications: No medications were administered Outcome: 17:35 Discharge ordered by MD. jr8 17:45 Discharged to home ambulatory, with friend. kr2 17:45 Condition: good 17:45 Discharge instructions given to patient, Instructed on discharge instructions, follow up and referral plans. medication usage, Demonstrated understanding of instructions, follow-up care, medications, Prescriptions given X 1. 17:47 Patient left the ED. kr2 Addendum: 05/07/2018 13:34 Addendum: Culture Results: Positive urine culture. Prescription called-in to pharmacy a a5 of choice. [facility] in [place], [place]. Signatures: Dispatcher [employer] EDMS Ally Ford, RN Nessa Chase mr Joyce Orr, RN Ally Almanza aa4 Ava Martin RN RN aa5 Albino Schwartz PA PA jr8 Shagufta Carrillo RN RN kr2 Minerva Stewart 3
[2018-05-02 17:58] VITALS: O2SAT 100
[2018-05-02 17:59] VITALS: BP 121/64; TEMP 98.1
--- NOTE | 2018-05-03 00:33 | EKG ---
Test Date: 2018-05-02 Test Time: 15:18:34 Route Delivery Supervisor: SANCHEZ MEASUREMENT RESULTS: Intervals: Rate: 62 MS: 126 QRSD: 96 QT: 406 QTc: 412 Arverne: P: 20 MS: 126 QRS: -22 T: 11 INTERPRETIVE STATEMENTS: Normal sinus rhythm with sinus arrhythmia Normal ECG Compared to ECG 02/17/2018 18:33:33 No significant changes Electronically Signed On 05-03-18 00:32:05 CDT by Dimas Graham
== END 2018-05-02 17:47 | disposition home or self-care (01) ==
LOC: ER 14:41
DX: N39.0 Urinary tract infection, site not specified (principal); F41.9 Anxiety disorder, unspecified; F32.9 Major depressive disorder, single episode, unspecified; Z85.41 Personal history of malignant neoplasm of cervix uteri; Z88.1 Allergy status to other antibiotic agents; Z88.2 Allergy status to sulfonamides
CPT/HCPCS: 36415; 76705; 80048; 80076; 81003; 81015; 81025; 83690; 85025; 87077; 87086; 87088; 87186; 93005; 99284

== ENCOUNTER 2018-05-21 11:38 | Emergency (ER) | payer MEDICAID ==
[2018-05-21 12:20] LABS: Urine Blood TRACE (NEG); Urine Glucose NEGATIVE (NEG); Urine Protein 1+ (NEG)
[2018-05-21] MEDS ORDERED: NA CHLORIDE 0.9% 1,000 ML ONE (12:31)
[2018-05-21] MEDS ORDERED: KETOROLAC 30 MG/ML INJ ONE (12:31)
[2018-05-21] MEDS ORDERED: CEFTRIAXONE/SWI 1gm 1 GM/10 ML SYR ONE (12:31)
[2018-05-21 12:39] LABS: Urine Bacteria LOADED /HPF (<20); Urine Culture Reflex Order REFLEXED
[2018-05-21 12:45] LABS: Absolute Lymphocytes (CBC) 1.4 K/uL (0.7-4.9); Absolute Monocytes 0.9 K/uL (0.1-1.3); Absolute Neutrophil 7.6 K/uL (1.8-8.0); Basophils % 0.3 % (0-1.3); Eosinophils % 0.1 % (0-4.4); Hematocrit 35.5 % (36.0-45.0); MCH 31.3 pg (27.0-35.0); MCV 92.3 fL (80-100); RBC Red Blood Cell Count 3.85 M/uL (3.86-4.86)
[2018-05-21 12:52] LABS: BUN Blood Urea Nitrogen 7 mg/dL (7-18); Bicarbonate 28 mmol/L (21-32); Glucose Level 99 mg/dL (74-106); Potassium 3.7 mmol/L (3.5-5.1); Sodium Level 141 mmol/L (136-145)
--- NOTE | 2018-05-21 13:20 | ER ---
Nurse's Notes [facility] Name: Anastasia Childress Age: 28 yrs Sex: Female : 1990 Arrival Date: 05/21/2018 Time: 11:40 Bed 13 Private MD: Fred Goidnez E Diagnosis: Urinary tract infection, site not specified Presentation: 05/21 11:52 Presenting complaint: Patient states: Reports low back pain that radiates around left aj side for 3 days. Patient started taking PCN at home 2 days ago. Patient reports irregular vaginal bleeding that started 4 days ago. Transition of care: patient was not received from another setting of care. Onset of symptoms was May 18, 2018. Risk Assessment: Do you want to hurt yourself or someone else? Patient reports no desire to harm self or others. Initial Sepsis Screen: Does the patient meet any 2 criteria? No. Patient's initial sepsis screen is negative. Does the patient have a suspected source of infection? No. Patient's initial sepsis screen is negative. Care prior to arrival: None. 11:52 Method Of Arrival: Ambulatory 11:52 Acuity: MOISES 3 aj Triage Assessment: 11:53 General: Appears in no apparent distress. comfortable, Behavior is calm, cooperative, aj appropriate for age. Pain: Complains of pain in low back area, mid back area, posterior aspect of left lateral abdomen and anterior aspect of left lateral abdomen. Neuro: Level of Consciousness is awake, alert, obeys commands, Oriented to person, place, time, situation, Appropriate for age. Respiratory: Airway is patent Respiratory effort is even, unlabored, Respiratory pattern is regular, symmetrical. : Reports vaginal bleeding that is. Derm: Skin is intact, is healthy with good turgor, Skin is pink, warm \T\ dry. normal. 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 - Social history:: Smoking status: Patient/guardian denies using tobacco. - Ebola Screening: : Patient negative for fever greater than or equal to 101.5 degrees Fahrenheit, and additional compatible Ebola Virus Disease symptoms Patient denies exposure to infectious person Patient denies travel to an Ebola-affected area in the 21 days before illness onset No symptoms or risks identified at this time. Screenin:02 Abuse screen: Denies threats or abuse. Denies injuries from another. Nutritional jl7 screening: No deficits noted. Tuberculosis screening: No symptoms or risk factors identified. Fall Risk IV access (20 points). Total Perez Fall Scale indicates No Risk (0-24 pts). Assessment: 12:20 General: Appears in no apparent distress. uncomfortable, Behavior is calm, cooperative, jl7 appropriate for age. Pain: Complains of pain in anterior aspect of left lateral abdomen and posterior aspect of left lateral abdomen and mid back area Pain currently is 10 out of 10 on a pain scale. Quality of pain is described as pressure, throbbing, Is continuous. Neuro: Level of Consciousness is awake, alert, obeys commands, Oriented to person, place, time, situation. Cardiovascular: Patient's skin is warm and dry. Respiratory: Airway is patent Respiratory effort is even, unlabored, Respiratory pattern is regular, symmetrical. GI: Abdomen is round non-distended, Bowel sounds present X 4 quads. : No signs and/or symptoms were reported regarding the genitourinary system. Denies burning with urination. EENT: No signs and/or symptoms were reported regarding the EENT system. Derm: Skin is pink, warm \T\ dry. Musculoskeletal: No signs and/or symptoms reported regarding the musculoskeletal system. 13:02 Reassessment: Patient appears in no apparent distress at this time. Patient and/or jl7 family updated on plan of care and expected duration. Pain level reassessed. Patient is alert, oriented x 3, equal unlabored respirations, skin warm/dry/pink. Patient states symptoms have improved. 13:21 Reassessment: ERP at bedside discussing plan of care. Pt will be discharged once fluids jl7 are finished infusing. 14:00 Reassessment: Patient and/or family updated on plan of care and expected duration. Pain jl7 level reassessed. Patient is alert, oriented x 3, equal unlabored respirations, skin warm/dry/pink. Vital Signs: 11:53 BP 116 / 60; Pulse 97; Resp 17; Temp 97.9; Pulse Ox 99% on R/A; Weight 68.04 kg; Height aj 4 ft. 11 in. (149.86 cm); 13:02 BP 105 / 59; Pulse 67; Resp 16 S; Pulse Ox 100% on R/A; Pain 6/10; jl7 14:00 BP 110 / 60; Pulse 65; Resp 16 S; Pulse Ox 100% on R/A; jl7 11:53 Body Mass Index 30.30 (68.04 kg, 149.86 cm) ED Course: 11:40 Patient arrived in ED. mr 11:40 Fred Godinez MD is Private Physician. mr 11:46 [facility]as[facility] Cordon[facility] kb 11:46 Dominic Pendleton MD is Attending Physician. kb 11:53 Triage completed. aj 11:53 Arm band placed on right wrist. Patient placed in an exam room. aj 12:22 Malu Maldonado, RN is Primary Nurse. jl7 12:24 Initial lab(s) drawn, by nd, sent to lab. Inserted saline lock: 22 gauge in left 5 antecubital area, using aseptic technique. Blood collected. 12:25 Urine collected: clean catch specimen, cloudy. 5 12:25 Basic Metabolic Panel Sent. [facility] 12:25 CBC with Diff Sent. [facility] 12:25 Urine Microscopic Only Sent. 5 12:29 Patient has correct armband on for positive identification. Bed in low position. Call [facility] light in reach. Side rails up X 1. Warm blanket given. Pulse ox on. NIBP on. 12:47 US Rp Exam Limited In Process Unspecified. EDMS 14:10 No provider procedures requiring assistance completed. IV discontinued, intact, jl7 bleeding controlled, No redness/swelling at site. Pressure dressing applied. Administered Medications: 12:40 Drug: NS 0.9% 1000 ml Route: IV; Rate: 1000 ml; Site: left antecubital; jl7 14:08 Follow up: Response: No adverse reaction; IV Status: Completed infusion jl7 12:41 Drug: TORadol 30 mg Route: IVP; Site: left antecubital; jl7 12:57 Follow up: Response: No adverse reaction; Pain is decreased jl7 12:43 Drug: Rocephin - (cefTRIAXone) 1 grams Route: IVPB; Infused Over: 30 mins; Site: left jl7 antecubital; 12:46 Follow up: Response: No adverse reaction; IV Status: Completed infusion jl7 Outcome: 13:19 Discharge ordered by . marko 14:10 Discharged to home ambulatory. jl7 14:10 Condition: stable 14:10 Discharge instructions given to patient, Instructed on discharge instructions, follow up and referral plans. Demonstrated understanding of instructions, follow-up care, medications, Prescriptions given X 1. 14:11 Patient left the ED. jl7 Addendum: 05/24/2018 07:40 Addendum: Culture Results: Positive urine culture. No further action required. Bacteria s s sensitive to prescribed antibiotic. Signatures: Dispatcher [employer] EDMS Chasity Cordon, WORLD HISTORY TEACHER-C WORLD HISTORY TEACHER-Ally Erickson, RN Jenelle Chase Shelby, RN Nessa Becerra [facility] Malu Maldonado RN RN jl7
--- NOTE | 2018-05-21 13:20 | EDPHYS ---
Physician Documentation [facility] Name: Anastasia Childress Age: 28 yrs Sex: Female : 1990 Arrival Date: 05/21/2018 Time: 11:40 Bed 13 Private MD: Fred Godinez E ED Physician Dominic Pendleton HPI: 05/21 13:18 This 28 yrs old Female presents to ER via Ambulatory with complaints of Back kb Pain. 13:18 The patient complains of pain in the left flank. The pain radiates to the abdomen. kb Onset: The symptoms/episode began/occurred 4 day(s) ago. Modifying factors: The symptoms are alleviated by nothing. the symptoms are aggravated by nothing. Associated signs and symptoms: The patient has no apparent associated signs or symptoms. Severity of pain: At its worst the pain was moderate in the emergency department the pain is unchanged. The patient has not experienced similar symptoms in the past. The patient has not recently seen a physician. 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 - Social history:: Smoking status: Patient/guardian denies using tobacco. - Ebola Screening: : Patient negative for fever greater than or equal to 101.5 degrees Fahrenheit, and additional compatible Ebola Virus Disease symptoms Patient denies exposure to infectious person Patient denies travel to an Ebola-affected area in the 21 days before illness onset No symptoms or risks identified at this time. ROS: 13:16 Constitutional: Negative for fever, chills, and weight loss, Cardiovascular: Negative kb for chest pain, palpitations, and edema, Respiratory: Negative for shortness of breath, cough, wheezing, and pleuritic chest pain, Abdomen/GI: Negative for abdominal pain, nausea, vomiting, diarrhea, and constipation, MS/Extremity: Negative for injury and deformity, Skin: Negative for injury, rash, and discoloration, Neuro: Negative for headache, weakness, numbness, tingling, and seizure. 13:17 : Positive for flank pain. kb Exam: 13:17 Constitutional: This is a well developed, well nourished patient who is awake, alert, kb and in no acute distress. Head/Face: Normocephalic, atraumatic. Chest/axilla: Normal chest wall appearance and motion. Nontender with no deformity. No lesions are appreciated. Cardiovascular: Regular rate and rhythm with a normal S1 and S2. No gallops, murmurs, or rubs. Normal PMI, no JVD. No pulse deficits. Respiratory: Lungs have equal breath sounds bilaterally, clear to auscultation and percussion. No rales, rhonchi or wheezes noted. No increased work of breathing, no retractions or nasal flaring. Abdomen/GI: Soft, non-tender, with normal bowel sounds. No distension or tympany. No guarding or rebound. No evidence of tenderness throughout. Skin: Warm, dry with normal turgor. Normal color with no rashes, no lesions, and no evidence of cellulitis. MS/ Extremity: Pulses equal, no cyanosis. Neurovascular intact. Full, normal range of motion. Neuro: Awake and alert, GCS 15, oriented to person, place, time, and situation. Cranial nerves II-XII grossly intact. Motor strength 5/5 in all extremities. Sensory grossly intact. Cerebellar exam normal. Normal gait. 13:17 Back: CVA tenderness, that is moderate, is noted on the left. Vital Signs: 11:53 BP 116 / 60; Pulse 97; Resp 17; Temp 97.9; Pulse Ox 99% on R/A; Weight 68.04 kg; Height aj 4 ft. 11 in. (149.86 cm); 13:02 BP 105 / 59; Pulse 67; Resp 16 S; Pulse Ox 100% on R/A; Pain 6/10; jl7 14:00 BP 110 / 60; Pulse 65; Resp 16 S; Pulse Ox 100% on R/A; jl7 11:53 Body Mass Index 30.30 (68.04 kg, 149.86 cm) aj MDM: 11:56 Patient medically screened. kb 13:16 Data reviewed: vital signs, nurses notes. Data interpreted: Pulse oximetry: on room air kb is 100 %. Interpretation: normal. 13:17 Counseling: I had a detailed discussion with the patient and/or guardian regarding: the kb historical points, exam findings, and any diagnostic results supporting the discharge/admit diagnosis, lab results, radiology results, the need for outpatient follow up, a family practitioner, to return to the emergency department if symptoms worsen or persist or if there are any questions or concerns that arise at home. 05/21 11:54 Order name: Urine Microscopic Only; Complete Time: 12:43 kb 05/21 12:07 Order name: CBC with Diff; Complete Time: 12:51 kb 05/21 12:07 Order name: Basic Metabolic Panel; Complete Time: 12:53 kb 05/21 12:10 Order name: Urine Dipstick--Ancillary (enter results); Complete Time: 12:21 eb 05/21 12:10 Order name: Urine --Ancillary (enter results); Complete Time: 12:21 eb 05/21 12:41 Order name: Urine Culture EDAL 05/21 11:54 Order name: Urine Test (obtain specimen); Complete Time: 12:23 kb 05/21 11:54 Order name: Urine Dipstick-Ancillary (obtain specimen); Complete Time: 12:23 kb 05/21 12:07 Order name: IV Start; Complete Time: 12:23 kb 05/21 12:16 Order name: US Rp Exam Limited; Complete Time: 13:41 kb Administered Medications: 12:40 Drug: NS 0.9% 1000 ml Route: IV; Rate: 1000 ml; Site: left antecubital; jl7 14:08 Follow up: Response: No adverse reaction; IV Status: Completed infusion jl7 12:41 Drug: TORadol 30 mg Route: IVP; Site: left antecubital; jl7 12:57 Follow up: Response: No adverse reaction; Pain is decreased jl7 12:43 Drug: Rocephin - (cefTRIAXone) 1 grams Route: IVPB; Infused Over: 30 mins; Site: left jl7 antecubital; 12:46 Follow up: Response: No adverse reaction; IV Status: Completed infusion jl7 Disposition: 17:33 Co-signature as Attending Physician, Dominic Pendleton MD. gs Disposition: 05/21/18 13:19 Discharged to Home. Impression: Urinary tract infection, site not specified. - Condition is Stable. - Discharge Instructions: Urinary Tract Infection, Adult, [id number]. - Prescriptions for Augmentin 875- 125 mg Oral Tablet - take 1 tablet by ORAL route every 12 hours for 7 days; 14 tablet. - Medication Reconciliation Form, Thank You Letter, Antibiotic Education, Prescription Opioid Use, Work release form form. - Follow up: Private Physician; When: 2 - 3 days; Reason: Recheck today's complaints, Continuance of care, Re-evaluation by your physician. Follow up: Emergency Department; When: As needed; Reason: Worsening of condition. Signatures: Dispatcher [employer] EDMS Chasity Cordon, GROUND WORKER-C GROUND WORKER-Ally Erickson RN Malu Ferrell RN RN jl7 Dominic Pendleton MD MD gs Corrections: (The following items were deleted from the chart) 14:11 13:19 05/21/2018 13:19 Discharged to Home. Impression: Urinary tract infection, site jl7 not specified. Condition is Stable. Forms are Medication Reconciliation Form, Thank You Letter, Antibiotic Education, Prescription Opioid Use. Follow up: Private Physician; When: 2 - 3 days; Reason: Recheck today's complaints, Continuance of care, Re-evaluation by your physician. Follow up: Emergency Department; When: As needed; Reason: Worsening of condition. kb
--- NOTE | 2018-05-21 13:34 | RAD REPORT ---
EXAM DESCRIPTION: US - Renal Ultrasound-Limited - 05/21/2018 12:47 pm CLINICAL HISTORY: Abdominal pain, flank pain, possible pyelonephritis COMPARISON: CT imaging April 20 FINDINGS: Exam was specifically requested as an assessment of the left kidney and bladder. The left kidney measures 10.0 x 5.2 x 5.4 cm. Renal cortical thickness and echogenicity are normal. N o hydronephrosis or suspicious renal mass. No perinephric abnormality. Urinary bladder is contracted with a 15 milliliter volume. No gross evidence for bladder wall abnorma lity or intraluminal filling defect. IMPRESSION: Negative ultrasound of the left kidney. No other significant findings.
[2018-05-21 14:24] VITALS: TEMP 97.9
[2018-05-21 14:25] VITALS: O2SAT 100
[2018-05-21 14:26] VITALS: BP 110/60
== END 2018-05-21 14:11 | disposition home or self-care (01) ==
LOC: ER 11:38
DX: N39.0 Urinary tract infection, site not specified (principal); F32.9 Major depressive disorder, single episode, unspecified; F41.9 Anxiety disorder, unspecified; Z88.1 Allergy status to other antibiotic agents; Z88.2 Allergy status to sulfonamides; Z85.41 Personal history of malignant neoplasm of cervix uteri
CPT/HCPCS: 36415; 76775; 80048; 81003; 81015; 81025; 85025; 87077; 87086; 87088; 87186; 96361; 96374; 96375; 99284; J0696; J7030

== ENCOUNTER 2018-06-04 16:41 | Emergency (ER) | payer MEDICAID ==
--- NOTE | 2018-06-04 17:44 | ER ---
Nurse's Notes [facility] Name: Anastasia Childress Age: 28 yrs Sex: Female : 1990 Arrival Date: 06/04/2018 Time: 16:44 Bed 17 Private MD: Diagnosis: Acute bronchitis;Acute pharyngitis Presentation: 06/04 16:45 Presenting complaint: Patient states: Sore throat and cough for the last few days. la1 Presenting complaint:. Transition of care: patient was not received from another setting of care. Onset of symptoms was June 04, 2018. Risk Assessment: Do you want to hurt yourself or someone else? Patient reports no desire to harm self or others. Initial Sepsis Screen: Does the patient meet any 2 criteria? No. Patient's initial sepsis screen is negative. Does the patient have a suspected source of infection? No. Patient's initial sepsis screen is negative. Care prior to arrival: None. 16:45 Method Of Arrival: Ambulatory la1 16:45 Acuity: MOISES 4 la1 Triage Assessment: 16:50 General: Appears in no apparent distress. uncomfortable, Behavior is calm, cooperative, hj appropriate for age. 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 - Social history:: Smoking status: Patient/guardian denies using tobacco, Patient/guardian denies using alcohol. - Ebola Screening: : Patient negative for fever greater than or equal to 101.5 degrees Fahrenheit, and additional compatible Ebola Virus Disease symptoms Patient denies exposure to infectious person Patient denies travel to an Ebola-affected area in the 21 days before illness onset. Screenin:49 Abuse screen: Denies threats or abuse. Denies injuries from another. Nutritional hj screening: No deficits noted. Tuberculosis screening: No symptoms or risk factors identified. Fall Risk None identified. Assessment: 16:49 Pain: Complains of pain in throat. Respiratory: Airway is patent Respiratory effort is hj even, unlabored, Respiratory pattern is regular, symmetrical, Breath sounds are clear. EENT: Throat. 17:22 Reassessment: awaiting for xray;. Vital Signs: 16:46 BP 108 / 75; Pulse 89; Resp 16; Temp 98.6; Pulse Ox 98% on R/A; Weight 69.85 kg; Height la1 4 ft. 11 in. (149.86 cm); 16:46 Body Mass Index 31.10 (69.85 kg, 149.86 cm) la1 ED Course: 16:44 Patient arrived in ED. tw3 16:45 Triage completed. la1 16:46 Kunal Meadows PA is PHCP. [facility] 16:46 Salas Mcleod MD is Attending Physician. [facility] 16:46 Arm band placed on left wrist. la1 16:49 Ramon Sales, RN is Primary Nurse. hj 16:50 Patient has correct armband on for positive identification. Bed in low position. Call hj light in reach. Side rails up X 1. Adult w/ patient. 16:57 Strep Sent. hj 16:57 Influenza Screen (a \T\ B) Sent. hj 17:13 Chest Pa And Lat (2 Views) XRAY In Process Unspecified. EDMS 17:51 No provider procedures requiring assistance completed. Patient did not have IV access hj during this emergency room visit. Administered Medications: No medications were administered Outcome: 17:43 Discharge ordered by . jm 17:51 Discharged to home ambulatory. hj 17:51 Condition: stable 17:51 Discharge instructions given to patient, Instructed on discharge instructions, follow up and referral plans. medication usage, Demonstrated understanding of instructions, follow-up care, medications, Prescriptions given X 1. 17:52 Patient left the ED. Signatures: Dispatcher [employer] EDMS Kunal Meadows PA PA jmm Attema, Lee RN RN la Ramon Sales, RN ANDREAS Farrell, Angely tw3
--- NOTE | 2018-06-04 17:44 | EDPHYS ---
Physician Documentation [facility] Name: Anastasia Childress Age: 28 yrs Sex: Female : 1990 Arrival Date: 06/04/2018 Time: 16:44 Bed 17 Private MD: ED Physician Salas Mcleod HPI: 06/04 16:47 This 28 yrs old Female presents to ER via Ambulatory with complaints of Sore jmm Throat. 16:47 The patient presents with sore throat. Onset: The symptoms/episode began/occurred jmm gradually, 3 day(s) ago. Modifying factors: The symptoms are alleviated by nothing, the symptoms are aggravated by nothing. Associated signs and symptoms: Pertinent positives: chills, cough. It is unknown whether or not the patient has had similar symptoms in the past. 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 - Social history:: Smoking status: Patient/guardian denies using tobacco, Patient/guardian denies using alcohol. - Ebola Screening: : Patient negative for fever greater than or equal to 101.5 degrees Fahrenheit, and additional compatible Ebola Virus Disease symptoms Patient denies exposure to infectious person Patient denies travel to an Ebola-affected area in the 21 days before illness onset. ROS: 16:47 Eyes: Negative for injury, pain, redness, and discharge. jmm 16:47 Constitutional: Positive for chills, malaise. 16:47 ENT: Positive for sinus congestion. 16:47 ENT: Positive for sore throat. 16:47 Respiratory: Positive for cough. 16:47 All other systems are negative. Exam: 16:47 Head/Face: atraumatic. jmm 16:47 Eyes: EOMI, no conjunctival erythema appreciated Neck: Trachea midline, Supple Chest/axilla: Normal chest wall appearance and motion. Cardiovascular: Regular rate and rhythm. No edema appreciated 16:47 Abdomen/GI: Non distended, soft Back: Normal ROM Skin: General appearance color normal MS/ Extremity: Moves all extremities, no obvious deformities appreciated, no edema noted to the lower extremities Neuro: Awake and alert, normal gait Psych: Behavior is normal, Mood is normal, Patient is cooperative and pleasant 16:47 Constitutional: The patient appears in no acute distress, alert, awake. 16:47 ENT: Posterior pharynx: is normal, Airway: normal. 16:47 Respiratory: the patient does not display signs of respiratory distress, Respirations: normal, Breath sounds: are clear throughout. 16:47 Abdomen/GI: Vital Signs: 16:46 BP 108 / 75; Pulse 89; Resp 16; Temp 98.6; Pulse Ox 98% on R/A; Weight 69.85 kg; Height la1 4 ft. 11 in. (149.86 cm); 16:46 Body Mass Index 31.10 (69.85 kg, 149.86 cm) la1 MDM: 16:47 Patient medically screened. [facility] 17:35 Data reviewed: vital signs, nurses notes. Counseling: I had a detailed discussion with [facility] the patient and/or guardian regarding: the historical points, exam findings, and any diagnostic results supporting the discharge/admit diagnosis, lab results, radiology results, the need for outpatient follow up, to return to the emergency department if symptoms worsen or persist or if there are any questions or concerns that arise at home. 17:35 Data interpreted: Pulse oximetry: on room air is 98 %. Interpretation: normal. [facility] 06/04 16:55 Order name: Influenza Screen (a \T\ B); Complete Time: 17:35 [facility] 06/04 16:55 Order name: Strep; Complete Time: 17:35 [facility] 06/04 16:55 Order name: Chest Pa And Lat (2 Views) XRAY [facility] 06/04 17:25 Order name: Throat Culture EDMS Administered Medications: No medications were administered Disposition: 06/04/18 17:43 Discharged to Home. Impression: Acute bronchitis, Acute pharyngitis. - Condition is Stable. - Discharge Instructions: Acute Bronchitis, Adult, Pharyngitis. - Prescriptions for Prednisone 20 mg Oral Tablet - take 3 tablet by ORAL route once daily for 5 days; 15 tablet. Zithromax Z- Ryan 250 mg Oral Tablet - take 1 tablet by ORAL route as directed for 5 days Day 1 - take two (2) tablets one time. Day 2, 3, 4 , 5 take one (1) tablet once daily.; 6 tablet. - Work release form, Medication Reconciliation Form, Thank You Letter, Antibiotic Education, Prescription Opioid Use form. - Follow up: Private Physician; When: 2 - 3 days; Reason: Recheck today's complaints, Continuance of care, Re-evaluation by your physician. Addendum: 06/06/2018 07:18 Co-signature as Attending Physician, Salas Mcleod MD I agree with the assessment and c crowell plan of care. Signatures: Dispatcher [employer] EDSalas Payne MD MD cha Mickail, Joel, PA PA jmm Attema, Lee RN RN laRamon Villarreal RN RN hj Corrections: (The following items were deleted from the chart) 06/04 17:52 17:43 06/04/2018 17:43 Discharged to Home. Impression: Acute bronchitis; Acute hj pharyngitis. Condition is Stable. Forms are Medication Reconciliation Form, Thank You Letter, Antibiotic Education, Prescription Opioid Use. Follow up: Private Physician; When: 2 - 3 days; Reason: Recheck today's complaints, Continuance of care, Re-evaluation by your physician. dora
[2018-06-04 17:56] VITALS: BP 108/75; TEMP 98.6; O2SAT 98
--- NOTE | 2018-06-04 18:01 | RAD REPORT ---
EXAM DESCRIPTION: RAD - Chest Pa And Lat (2 Views) - 06/04/2018 5:13 pm CLINICAL HISTORY: Cough, sore throat, history of cervical cancer COMPARISON: January 2018 TECHNIQUE: PA and lateral views of the chest were obtained. FINDINGS: The lungs are clear. Heart size is normal and central vasculature is within normal limit s. No pleural effusion or pneumothorax seen. No acute bony finding noted. No aortic abnormality. IMPRESSION: No acute cardiopulmonary process. No significant interval change.
== END 2018-06-04 17:52 | disposition home or self-care (01) ==
LOC: ER 16:41
DX: J20.9 Acute bronchitis, unspecified (principal); F41.8 Other specified anxiety disorders; Z88.2 Allergy status to sulfonamides; Z88.1 Allergy status to other antibiotic agents
CPT/HCPCS: 71046; 87070; 87081; 87804; 99283

== ENCOUNTER 2018-08-01 16:28 | Emergency (ER) | payer MEDICAID ==
[2018-08-01 17:39] LABS: Urine Bacteria <20 /HPF (<20); Urine Culture Reflex Order REFLEXED; Urine Mucus 2+ /HPF (NONE SEEN)
[2018-08-01 17:40] LABS: Urine Blood 2+ (NEG); Urine Glucose NEGATIVE (NEG); Urine Protein NEGATIVE (NEG); Urine Specific Gravity 1.025 (1.005-1.030)
--- NOTE | 2018-08-01 18:12 | EDPHYS ---
Physician Documentation [facility] Name: Anastasia Childress Age: 28 yrs Sex: Female : 1990 Arrival Date: 08/01/2018 Time: 16:29 Bed 27 Private MD: None, None ED Physician Dominic Pendleton HPI: 08/01 18:07 This 28 yrs old Female presents to ER via Ambulatory with complaints of gs Weakness, Nausea, Dizziness. 18:07 Onset: The symptoms/episode began/occurred this morning. Associated signs and symptoms: gs Pertinent positives: chills, nausea. Severity of symptoms: At their worst the symptoms were mild in the emergency department the symptoms are unchanged. The patient has experienced similar episodes in the past, a few times. 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 - Social history:: Smoking status: Patient uses tobacco products, Patient/guardian denies using alcohol. - Ebola Screening: : Patient negative for fever greater than or equal to 101.5 degrees Fahrenheit, and additional compatible Ebola Virus Disease symptoms Patient denies exposure to infectious person Patient denies travel to an Ebola-affected area in the 21 days before illness onset. ROS: 18:07 All other systems are negative. gs Exam: 18:07 Head/Face: Normocephalic, atraumatic. Eyes: Pupils equal round and reactive to light, gs extra-ocular motions intact. Lids and lashes normal. Conjunctiva and sclera are non-icteric and not injected. Cornea within normal limits. Periorbital areas with no swelling, redness, or edema. ENT: Nares patent. No nasal discharge, no septal abnormalities noted. Tympanic membranes are normal and external auditory canals are clear. Oropharynx with no redness, swelling, or masses, exudates, or evidence of obstruction, uvula midline. Mucous membranes moist. Neck: Trachea midline, no thyromegaly or masses palpated, and no cervical lymphadenopathy. Supple, full range of motion without nuchal rigidity, or vertebral point tenderness. No Meningismus. Chest/axilla: Normal chest wall appearance and motion. Nontender with no deformity. No lesions are appreciated. Cardiovascular: Regular rate and rhythm with a normal S1 and S2. No gallops, murmurs, or rubs. Normal PMI, no JVD. No pulse deficits. Respiratory: Lungs have equal breath sounds bilaterally, clear to auscultation and percussion. No rales, rhonchi or wheezes noted. No increased work of breathing, no retractions or nasal flaring. Abdomen/GI: Soft, non-tender, with normal bowel sounds. No distension or tympany. No guarding or rebound. No evidence of tenderness throughout. Back: No spinal tenderness. No costovertebral tenderness. Full range of motion. Skin: Warm, dry with normal turgor. Normal color with no rashes, no lesions, and no evidence of cellulitis. MS/ Extremity: Pulses equal, no cyanosis. Neurovascular intact. Full, normal range of motion. Neuro: Awake and alert, GCS 15, oriented to person, place, time, and situation. Cranial nerves II-XII grossly intact. Motor strength 5/5 in all extremities. Sensory grossly intact. Cerebellar exam normal. Normal gait. 18:07 Constitutional: The patient appears alert, awake. Vital Signs: 16:34 BP 110 / 69; Pulse 82; Resp 18; Temp 100.0(O); Pulse Ox 100% on R/A; Weight 69.85 kg; Height 4 ft. 11 in. (149.86 cm); Pain 6/10; 17:29 BP 125 / 86; Pulse 69; Resp 20; Temp 98.2; Pulse Ox 100% on R/A; kr2 18:27 BP 111 / 75; Pulse 70; Resp 16; Pulse Ox 100% ; kr2 16:34 Body Mass Index 31.10 (69.85 kg, 149.86 cm) MDM: 16:56 Patient medically screened. 18:07 Data reviewed: vital signs. Data interpreted: monitor worker: Pulse oximetry:. Counseling: I had a detailed discussion with the patient and/or guardian regarding: the historical points, exam findings, and any diagnostic results supporting the discharge/admit diagnosis, lab results. Response to treatment: the patient's symptoms have markedly improved after treatment, and as a result, I will discharge patient. 08/01 16:56 Order name: Influenza Screen (a \T\ B); Complete Time: 18:06 08/01 16:56 Order name: Strep; Complete Time: 18:06 08/01 16:56 Order name: Urine Microscopic Only; Complete Time: 18:06 08/01 17:15 Order name: Urine Dipstick--Ancillary (enter results); Complete Time: 18:06 08/01 17:15 Order name: Urine --Ancillary (enter results); Complete Time: 18:06 08/01 17:32 Order name: Throat Culture [facility] 08/01 16:56 Order name: Urine Test (obtain specimen); Complete Time: 17:12 08/01 16:56 Order name: Urine Dipstick-Ancillary (obtain specimen); Complete Time: 17:12 08/01 17:41 Order name: Urine Culture [facility] Administered Medications: No medications were administered Disposition: 08/01/18 18:10 Discharged to Home. Impression: Cystitis, Malaise and fatigue. - Condition is Stable. - Discharge Instructions: Urinary Tract Infection, Adult. - Prescriptions for Zofran 4 mg Oral Tablet - take 1 tablet by ORAL route every 12 hours As needed; 6 tablet. Macrobid 100 mg Oral Capsule - take 1 capsule by ORAL route every 12 hours for 5 days; 10 capsule. - Medication Reconciliation Form, Thank You Letter, Antibiotic Education, Prescription Opioid Use form. - Follow up: Private Physician; When: 2 - 3 days; Reason: Re-evaluation by your physician. Signatures: [facility] Ramon Sales RN RN hj Starr, Gregory, MD MD Shagufta Carrillo RN RN kr2 Corrections: (The following items were deleted from the chart) 18:28 18:10 08/01/2018 18:10 Discharged to Home. Impression: Cystitis; Malaise and fatigue. kr2 Condition is Stable. Forms are Medication Reconciliation Form, Thank You Letter, Antibiotic Education, Prescription Opioid Use. Follow up: Private Physician; When: 2 - 3 days; Reason: Re-evaluation by your physician. gs
--- NOTE | 2018-08-01 18:12 | ER ---
Nurse's Notes [facility] Name: Anastasia Childress Age: 28 yrs Sex: Female : 1990 Arrival Date: 08/01/2018 Time: 16:29 Bed 27 Private MD: None, None Diagnosis: Cystitis;Malaise and fatigue Presentation: 08/01 16:31 Presenting complaint: Patient states: i almost passed out at work at [employer] 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 Transition of care: patient was not received from another setting of care. 16:31 Method Of Arrival: Ambulatory 16:34 Onset of symptoms was August 01, 2018. Risk Assessment: Do you want to hurt yourself hj or someone else? Patient reports no desire to harm self or others. Initial Sepsis Screen: Does the patient meet any 2 criteria? No. Patient's initial sepsis screen is negative. Does the patient have a suspected source of infection? No. Patient's initial sepsis screen is negative. Care prior to arrival: None. 16:34 Acuity: MOISES 3 Triage Assessment: 16:33 General: Appears in no apparent distress. uncomfortable, Behavior is calm, cooperative, hj appropriate for age. Pain: Complains of pain in abdomen. 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 - Social history:: Smoking status: Patient uses tobacco products, Patient/guardian denies using alcohol. - Ebola Screening: : Patient negative for fever greater than or equal to 101.5 degrees Fahrenheit, and additional compatible Ebola Virus Disease symptoms Patient denies exposure to infectious person Patient denies travel to an Ebola-affected area in the 21 days before illness onset. Screenin:34 Abuse screen: Denies threats or abuse. Denies injuries from another. Nutritional hj screening: No deficits noted. Tuberculosis screening: No symptoms or risk factors identified. Fall Risk None identified. Assessment: 16:45 General: Appears in no apparent distress. uncomfortable, well developed, Behavior is kr2 cooperative, anxious. Pain: Complains of pain in right lower quadrant and left lower quadrant Pain does not radiate. Pain currently is 5 out of 10 on a pain scale. Quality of pain is described as aching, sharp, Is continuous. Neuro: Level of Consciousness is awake, alert, obeys commands, Oriented to person, place, time, situation. Cardiovascular: Capillary refill < 3 seconds in bilateral fingers Patient's skin is warm and dry. Respiratory: Airway is patent Respiratory effort is even, unlabored, Respiratory pattern is regular, symmetrical. GI: Abdomen is flat, non-distended, Bowel sounds present X 4 quads. Abd is soft and non tender X 4 quads. : Urine is clear. EENT: Nares are clear Oral mucosa is moist. Throat is reddened. Derm: Skin is intact, is healthy with good turgor, Skin is pink, warm \T\ dry. Musculoskeletal: Circulation, motion, and sensation intact. 17:29 Reassessment: Patient appears in no apparent distress at this time. Patient and/or kr2 family updated on plan of care and expected duration. Pain level reassessed. Patient is alert, oriented x 3, equal unlabored respirations, skin warm/dry/pink. 18:27 Reassessment: Patient appears in no apparent distress at this time. Patient and/or kr2 family updated on plan of care and expected duration. Pain level reassessed. Patient is alert, oriented x 3, equal unlabored respirations, skin warm/dry/pink. Vital Signs: 16:34 BP 110 / 69; Pulse 82; Resp 18; Temp 100.0(O); Pulse Ox 100% on R/A; Weight 69.85 kg; hj Height 4 ft. 11 in. (149.86 cm); Pain 6/10; 17:29 BP 125 / 86; Pulse 69; Resp 20; Temp 98.2; Pulse Ox 100% on R/A; kr2 18:27 BP 111 / 75; Pulse 70; Resp 16; Pulse Ox 100% ; kr2 16:34 Body Mass Index 31.10 (69.85 kg, 149.86 cm) ED Course: 16:29 Patient arrived in ED. sb2 16:31 None, None is Private Physician. sb2 16:34 Triage completed. hj 16:34 Arm band placed on left wrist. hj 16:36 Patient has correct armband on for positive identification. Placed in gown. Bed in low hj position. Call light in reach. Side rails up X 1. 16:38 Dominic Pendleotn MD is Attending Physician. 16:38 Shagufta Carrillo, RN is Primary Nurse. kr2 17:00 Urine collected: clean catch specimen, clear, nakia colored, Amount Voided: 60mL Flu jp3 and/or RSV swab sent to lab. Strep swab sent to lab. 17:12 Warm blanket given. jp3 17:12 Urine Microscopic Only Sent. jp3 17:12 Strep Sent. jp3 17:12 Influenza Screen (a \T\ B) Sent. jp3 17:44 Throat Culture Sent. aj1 17:44 Urine Culture Sent. aj1 18:28 No provider procedures requiring assistance completed. Patient did not have IV access kr2 during this emergency room visit. Administered Medications: No medications were administered Outcome: 18:10 Discharge ordered by . 18:28 Discharged to home ambulatory. kr2 18:28 Condition: good 18:28 Discharge instructions given to patient, Instructed on discharge instructions, follow up and referral plans. medication usage, Demonstrated understanding of instructions, follow-up care, medications, Prescriptions given X 2. 18:28 Patient left the ED. kr2 Signatures: Bertha Benjamin RN RN aj1 Ramon Sales RN RN Dominic Pendleton MD MD Shagufta Carrillo, RN RN kr2 Marisol Farnsworth sb2 Ángel David jp3 Corrections: (The following items were deleted from the chart) 16:37 16:34 Pulse 82bpm; Resp 18bpm; Pulse Ox 100% RA; Temp 100.0F Oral; 69.85 kg; Height 4 hj ft. 11 in.; BMI: 31.1; Pain 6/10; hj
[2018-08-01 18:34] VITALS: O2SAT 100
[2018-08-01 18:36] VITALS: TEMP 98.2
[2018-08-01 18:37] VITALS: BP 111/75
== END 2018-08-01 18:28 | disposition home or self-care (01) ==
LOC: ER 16:28
DX: N30.90 Cystitis, unspecified without hematuria (principal); R53.83 Other fatigue; F41.9 Anxiety disorder, unspecified; F32.9 Major depressive disorder, single episode, unspecified; Z72.0 Tobacco use; Z88.1 Allergy status to other antibiotic agents; Z88.2 Allergy status to sulfonamides; Z85.41 Personal history of malignant neoplasm of cervix uteri
CPT/HCPCS: 81003; 81015; 81025; 87070; 87081; 87086; 87088; 87804; 99283

== ENCOUNTER 2018-08-13 18:10 | Emergency (ER) | payer MEDICAID ==
[2018-08-13 19:56] LABS: Urine Blood NEGATIVE (NEG); Urine Glucose NEGATIVE (NEG); Urine Protein NEGATIVE (NEG); Urine pH 7.5 (5.0-7.0)
--- NOTE | 2018-08-13 21:03 | EDPHYS ---
Physician Documentation [facility] Name: Anastasia Childress Age: 28 yrs Sex: Female : 1990 Arrival Date: 08/13/2018 Time: 18:11 Bed 24 Private MD: Fred Godinez E ED Physician Abdirahman Adkins HPI: 08/13 19:00 This 28 yrs old Female presents to ER via Ambulatory with complaints of Flu pm1 Symptoms. 19:00 The patient presents with sore throat. The patient describes throat pain as constant, pm1 scratchy. Onset: The symptoms/episode began/occurred 3 day(s) ago. Severity of symptoms: in the emergency department the symptoms are unchanged. Modifying factors: The symptoms are alleviated by nothing, the symptoms are aggravated by foods, swallowing, Patient's oral intake status: good. Associated signs and symptoms: Pertinent positives: flu-like symptoms, nausea, vomiting, Pertinent negatives chest pain, fever, shortness of breath. The patient has not recently seen a physician, and does not have an established primary care provider. 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 - Social history:: Smoking status: . - Ebola Screening: : Patient negative for fever greater than or equal to 101.5 degrees Fahrenheit, and additional compatible Ebola Virus Disease symptoms Patient denies exposure to infectious person Patient denies travel to an Ebola-affected area in the 21 days before illness onset No symptoms or risks identified at this time. ROS: 19:00 Constitutional: Negative for fever, chills, and weight loss, Eyes: Negative for injury, pm1 pain, redness, and discharge, Neck: Negative for injury, pain, and swelling. 19:00 Cardiovascular: Negative for chest pain, palpitations, and edema. 19:00 Back: Negative for injury and pain, : Negative for injury, bleeding, discharge, and swelling, MS/Extremity: Negative for injury and deformity, Skin: Negative for injury, rash, and discoloration, Neuro: Negative for headache, weakness, numbness, tingling, and seizure. 19:00 ENT: Positive for sore throat, Negative for ear pain. 19:00 Respiratory: Positive for cough, Negative for shortness of breath, sputum production, wheezing. 19:00 Abdomen/GI: Positive for nausea and vomiting, Negative for abdominal pain, diarrhea. Exam: 19:00 Constitutional: This is a well developed, well nourished patient who is awake, alert, pm1 and in no acute distress. Head/Face: Normocephalic, atraumatic. Eyes: Pupils equal round and reactive to light, extra-ocular motions intact. Lids and lashes normal. Conjunctiva and sclera are non-icteric and not injected. Cornea within normal limits. Periorbital areas with no swelling, redness, or edema. ENT: Nares patent. No nasal discharge, no septal abnormalities noted. Tympanic membranes are normal and external auditory canals are clear. Oropharynx with no redness, swelling, or masses, exudates, or evidence of obstruction, uvula midline. Mucous membranes moist. Neck: Trachea midline, no thyromegaly or masses palpated, and no cervical lymphadenopathy. Supple, full range of motion without nuchal rigidity, or vertebral point tenderness. No Meningismus. Chest/axilla: Normal chest wall appearance and motion. Nontender with no deformity. No lesions are appreciated. Cardiovascular: Regular rate and rhythm with a normal S1 and S2. No gallops, murmurs, or rubs. Normal PMI, no JVD. No pulse deficits. Respiratory: Lungs have equal breath sounds bilaterally, clear to auscultation and percussion. No rales, rhonchi or wheezes noted. No increased work of breathing, no retractions or nasal flaring. Abdomen/GI: Soft, non-tender, with normal bowel sounds. No distension or tympany. No guarding or rebound. No evidence of tenderness throughout. Back: No spinal tenderness. No costovertebral tenderness. Full range of motion. Skin: Warm, dry with normal turgor. Normal color with no rashes, no lesions, and no evidence of cellulitis. MS/ Extremity: Pulses equal, no cyanosis. Neurovascular intact. Full, normal range of motion. 19:00 Neuro: Orientation: is normal, Motor: moves all fours. Vital Signs: 18:57 Pulse 64; Resp 18 S; Temp 98.2; Pulse Ox 100% on R/A; iw 21:20 BP 104 / 70; Pulse 62; Resp 18; Pulse Ox 100% on R/A; tl3 MDM: 18:46 Patient medically screened. pm1 21:00 Data reviewed: vital signs. Data interpreted: Pulse oximetry: on room air is 100 %. pm1 Interpretation: normal. Counseling: I had a detailed discussion with the patient and/or guardian regarding: the historical points, exam findings, and any diagnostic results supporting the discharge/admit diagnosis, lab results, the need for outpatient follow up, to return to the emergency department if symptoms worsen or persist or if there are any questions or concerns that arise at home. 21:00 ED course: Patient reports that she has zofran ODT at home but would like to have some pm1 phenergan for vomiting. Will provide patient a prescription. 08/13 18:52 Order name: Strep; Complete Time: 20:25 pm1 08/13 18:52 Order name: Flu; Complete Time: 20:25 pm1 08/13 18:52 Order name: Urine Dipstick-Ancillary (obtain specimen); Complete Time: 19:26 pm1 08/13 19:47 Order name: Urine Dipstick--Ancillary (enter results); Complete Time: 20:25 eb 08/13 19:47 Order name: Urine --Ancillary (enter results); Complete Time: 20:25 eb 08/13 19:58 Order name: Throat Culture EDWA 08/13 18:52 Order name: Urine Test (obtain specimen); Complete Time: 19:26 pm1 Administered Medications: No medications were administered Disposition: 08/13/18 21:03 Discharged to Home. Impression: Acute nasopharyngitis [common cold]. - Condition is Stable. - Discharge Instructions: Antibiotic Resistance, Upper Respiratory Infection, Adult, Viral Respiratory Infection. - Prescriptions for promethazine 25 mg Oral Tablet - take 1 tablet by ORAL route every 6 hours As needed; 20 tablet. - Work release form, Medication Reconciliation Form, Thank You Letter, Antibiotic Education, Prescription Opioid Use form. - Follow up: Emergency Department; When: As needed; Reason: Worsening of condition. Follow up: Private Physician; When: 2 - 3 days; Reason: Recheck today's complaints, Continuance of care, Re-evaluation by your physician. - Problem is new. - Symptoms have improved. Addendum: 08/25/2018 15:15 Co-signature as Attending Physician, Abdirahman Adkins MD Available for consultation at p s1 all times. . Signatures: Dispatcher [employer] EDJoyce Qiu RN RN iw Miguel Mojica NP TIP BANDER pm1 Abdirahman Adkins MD MD ps1 Georgette Martinez RN RN tl3 Corrections: (The following items were deleted from the chart) 08/13 21:25 21:03 08/13/2018 21:03 Discharged to Home. Impression: Acute nasopharyngitis [common tl3 cold]. Condition is Stable. Forms are Medication Reconciliation Form, Thank You Letter, Antibiotic Education, Prescription Opioid Use. Follow up: Emergency Department; When: As needed; Reason: Worsening of condition. Follow up: Private Physician; When: 2 - 3 days; Reason: Recheck today's complaints, Continuance of care, Re-evaluation by your physician. Problem is new. Symptoms have improved. pm1
--- NOTE | 2018-08-13 21:03 | ER ---
Nurse's Notes [facility] Name: Anastasia Childress Age: 28 yrs Sex: Female : 1990 Arrival Date: 08/13/2018 Time: 18:11 Bed 24 Private MD: Fred Godinez E Diagnosis: Acute nasopharyngitis [common cold] Presentation: 08/13 18:54 Presenting complaint: Patient states: vomiting, weakness, sore throat. Transition of iw care: patient was not received from another setting of care. Onset of symptoms was August 13, 2018. Risk Assessment: Do you want to hurt yourself or someone else? Patient reports no desire to harm self or others. Initial Sepsis Screen: Does the patient meet any 2 criteria? No. Patient's initial sepsis screen is negative. Does the patient have a suspected source of infection? No. Patient's initial sepsis screen is negative. Care prior to arrival: None. 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 - Social history:: Smoking status: . - Ebola Screening: : Patient negative for fever greater than or equal to 101.5 degrees Fahrenheit, and additional compatible Ebola Virus Disease symptoms Patient denies exposure to infectious person Patient denies travel to an Ebola-affected area in the 21 days before illness onset No symptoms or risks identified at this time. Screenin:38 Abuse screen: Denies threats or abuse. Nutritional screening: No deficits noted. tl3 Tuberculosis screening: No symptoms or risk factors identified. Fall Risk None identified. Assessment: 19:38 General: Appears uncomfortable, slender, well groomed, well developed, well nourished, tl3 Behavior is calm, cooperative, appropriate for age. Pain: Complains of pain in abdomen. Neuro: Level of Consciousness is awake, alert, obeys commands, Oriented to person, place, time, situation, Appropriate for age. Cardiovascular: Patient's skin is warm and dry. Respiratory: Airway is patent Respiratory effort is even, unlabored, Respiratory pattern is regular, symmetrical. GI: Abdomen is round Reports vomiting. : No signs and/or symptoms were reported regarding the genitourinary system. EENT: No signs and/or symptoms were reported regarding the EENT system. Derm: No signs and/or symptoms reported regarding the dermatologic system. Musculoskeletal: No signs and/or symptoms reported regarding the musculoskeletal system. 21:20 Reassessment: Patient appears in no apparent distress at this time. No changes from tl3 previously documented assessment. Patient and/or family updated on plan of care and expected duration. Pain level reassessed. Patient is alert, oriented x 3, equal unlabored respirations, skin warm/dry/pink. Vital Signs: 18:57 Pulse 64; Resp 18 S; Temp 98.2; Pulse Ox 100% on R/A; iw 21:20 BP 104 / 70; Pulse 62; Resp 18; Pulse Ox 100% on R/A; tl3 ED Course: 18:11 Patient arrived in ED. mr 18:11 Fred Godinez MD is Private Physician. mr 18:45 [facility] pm1 18:45 Abdirahman Adkins MD is Attending Physician. pm1 18:55 Triage completed. iw 19:26 Georgette Martinez, RN is Primary Nurse. tl3 19:26 Flu Sent. tl3 19:26 Strep Sent. tl3 19:38 No provider procedures requiring assistance completed. Inserted saline lock: 20 gauge tl3 in right antecubital area, using aseptic technique. Blood collected. 19:38 Flu and/or RSV swab sent to lab. Strep swab sent to lab. tl3 19:38 Patient has correct armband on for positive identification. Bed in low position. Call tl3 light in reach. Side rails up X 1. Pulse ox on. NIBP on. Warm blanket given. 21:20 IV discontinued, intact, bleeding controlled, No redness/swelling at site. Pressure tl3 dressing applied. 21:25 Arm band placed on. tl3 Administered Medications: No medications were administered Outcome: 21:03 Discharge ordered by . pm1 21:20 Discharged to home ambulatory. tl3 21:20 Condition: stable 21:20 Discharge instructions given to patient, Instructed on discharge instructions, follow up and referral plans. medication usage, Demonstrated understanding of instructions, follow-up care, medications, Prescriptions given X 1. 21:25 Patient left the ED. tl3 Signatures: Jenelle Cuenca Irene, RN RN Miguel Venegas NP CHUCKING MACHINE OPERATOR pm1 Georgette Martinez, ANDREAS RN tl3
[2018-08-13 21:53] VITALS: TEMP 98.2; O2SAT 100
[2018-08-13 21:54] VITALS: BP 104/70
== END 2018-08-13 21:25 | disposition home or self-care (01) ==
LOC: ER 18:10
DX: J00 Acute nasopharyngitis [common cold] (principal); F41.9 Anxiety disorder, unspecified; F32.9 Major depressive disorder, single episode, unspecified; Z79.899 Other long term (current) drug therapy; Z85.41 Personal history of malignant neoplasm of cervix uteri
CPT/HCPCS: 81003; 81025; 87070; 87081; 87804; 99284

== ENCOUNTER 2018-11-18 15:09 | Emergency (ER) | payer MEDICAID, OTHER ==
[2018-11-18] MEDS ORDERED: IBUPROFEN 400 MG TAB ONE (16:46)
[2018-11-18] MEDS ORDERED: METOCLOPRAMIDE 10 MG/2mL INJ ONE (16:46)
[2018-11-18] MEDS ORDERED: NA CHLORIDE 0.9% 1,000 ML ONE (16:46)
[2018-11-18 16:56] LABS: Absolute Lymphocytes (CBC) 1.8 K/uL (0.7-4.9); Absolute Monocytes 0.5 K/uL (0.1-1.3); Absolute Neutrophil 3.5 K/uL (1.8-8.0); Basophils % 0.6 % (0-1.3); Eosinophils % 1.7 % (0-4.4); Hematocrit 36.4 % (36.0-45.0); MPV 9.5 fL (7.6-11.3); Monocytes % 8.1 % (3.3-12.3); RBC Red Blood Cell Count 3.84 M/uL (3.86-4.86)
[2018-11-18 17:17] LABS: BUN Blood Urea Nitrogen 12 mg/dL (7-18); Bicarbonate 29 mmol/L (21-32); Glucose Level 83 mg/dL (74-106); Potassium 3.6 mmol/L (3.5-5.1); Sodium Level 142 mmol/L (136-145)
--- NOTE | 2018-11-18 17:54 | ER ---
Nurse's Notes [facility] Name: Anastasia Childress Age: 28 yrs Sex: Female : 1990 Arrival Date: 11/18/2018 Time: 15:12 Bed 23 Private MD: Fred Godinez E Diagnosis: Migraine Presentation: 11/18 15:40 Presenting complaint: Patient states: I was getting ready for work today and felt very sg weak, like I was going to pass out, this has happened before but it hasnt been this bad, I have a history of migraines but the medication I normally take have not helped me at all. Transition of care: patient was not received from another setting of care. Onset of symptoms was November 16, 2018. Risk Assessment: Do you want to hurt yourself or someone else? Patient reports no desire to harm self or others. Initial Sepsis Screen: Does the patient meet any 2 criteria? No. Patient's initial sepsis screen is negative. Does the patient have a suspected source of infection? No. Patient's initial sepsis screen is negative. Care prior to arrival: None. 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 tw2 Historical: - Allergies: 15:34 Bactrim; sg 15:34 Sulfa (Sulfonamide Antibiotics); sg - Home Meds: 16:16 Fioricet 50-300-40 mg Oral cap 1 cap as needed [Active]; gabapentin 100 mg Oral cap as tw2 needed [Active]; Xanax 1 mg Oral tab 1 tab 3 times per day [Active]; - PMHx: 15:34 Anxiety; cervical CA; chiari malformation; Depression; Migraines; sg - PSHx: 15:34 Tubal ligation; cyst removal; sg - Immunization history:: Adult Immunizations up to date. - Social history:: Smoking status: Patient/guardian denies using tobacco. - Ebola Screening: : Patient negative for fever greater than or equal to 101.5 degrees Fahrenheit, and additional compatible Ebola Virus Disease symptoms Patient denies exposure to infectious person Patient denies travel to an Ebola-affected area in the 21 days before illness onset No symptoms or risks identified at this time. - Family history:: not pertinent. - Hospitalizations: : No recent hospitalization is reported. Screenin:12 Abuse screen: Denies threats or abuse. Nutritional screening: No deficits noted. tw2 Tuberculosis screening: No symptoms or risk factors identified. Fall Risk None identified. Assessment: 16:20 Reassessment: pt eating fast food in the lobby, [employer] fried chicken. tw2 16:46 General: Appears in no apparent distress. Behavior is anxious. Pain: Complains of pain tw2 in headache. Neuro: Level of Consciousness is awake, alert, obeys commands, Oriented to person, place, time, situation. Cardiovascular: Heart tones S1 S2 Patient's skin is warm and dry. Respiratory: Airway is patent Respiratory effort is even, unlabored, Respiratory pattern is regular, symmetrical, Breath sounds are clear bilaterally. GI: Reports nausea. GI: Bowel sounds present X 4 quads. : No signs and/or symptoms were reported regarding the genitourinary system. EENT: No signs and/or symptoms were reported regarding the EENT system. Derm: No signs and/or symptoms reported regarding the dermatologic system. Musculoskeletal: Range of motion: intact in all extremities. 16:51 Reassessment: pts family came to nurses station to report pt having a panic attack, pt tw2 was fanning herself states "i have been out of my xanax for a while and i need some", pt placed on o2 via nc at this time, provider notified. 17:06 Reassessment: Patient appears in no apparent distress at this time. Patient and/or tw2 family updated on plan of care and expected duration. Pain level reassessed. Patient is alert, oriented x 3, equal unlabored respirations, skin warm/dry/pink. 17:59 Reassessment: Patient appears in no apparent distress at this time. Patient and/or tw2 family updated on plan of care and expected duration. Pain level reassessed. Patient is alert, oriented x 3, equal unlabored respirations, skin warm/dry/pink. Patient states feeling better. Patient states symptoms have improved. Vital Signs: 15:39 BP 124 / 80; Pulse 87; Resp 17; Temp 98.2; Pulse Ox 98% on R/A; sg 16:10 BP 120 / 69 LA Sitting (auto/reg); Pulse 59; Resp 18; Temp 98.5; Pulse Ox 100% on R/A; jp3 Pain 6/10; 17:07 BP 118 / 60; Pulse 81; Resp 17; Pulse Ox 100% on 2 lpm NC; tw2 16:10 pt reported "pain most in my head. some pain medications make my anxiety worse" jp3 [place] Coma Score: 17:52 Eye Response: spontaneous(4). Verbal Response: oriented(5). Motor Response: obeys rn commands(6). Total: 15. ED Course: 15:12 Patient arrived in ED. rg4 15:12 Fred Godinez MD is Private Physician. rg4 15:34 Arm band placed on. sg 15:41 Triage completed. sg 16:07 Fidelia Voss, ANDREAS is Primary Nurse. tw2 16:10 Javon Ortiz MD is Attending Physician. rn 16:12 Bed in low position. Call light in reach. property assessment monitor on. Pulse ox on. NIBP on. tw2 16:15 Urine collected: clean catch specimen, clear, nakia colored, Amount Voided: 110mL. jp3 16:18 Side rails up X 1. Warm blanket given. jp3 16:40 Inserted saline lock: 20 gauge in right antecubital area, using aseptic technique. tw2 Blood collected. 17:04 EKG done, by biodiesel process control technician. reviewed by Javon Ortiz MD. sm3 17:59 No provider procedures requiring assistance completed. IV discontinued, intact, tw2 bleeding controlled, No redness/swelling at site. Pressure dressing applied. Administered Medications: 16:42 Drug: Reglan 10 mg Route: IVP; Site: right antecubital; tw2 17:58 Follow up: Response: No adverse reaction tw2 16:44 Drug: NS 0.9% 1000 ml Route: IV; Rate: 1000 ml; Site: right antecubital; tw2 17:58 Follow up: Response: No adverse reaction; IV Status: Completed infusion; IV Intake: tw2 500ml 16:44 Drug: Motrin 800 mg Route: PO; tw2 17:58 Follow up: Response: No adverse reaction; Pain is decreased tw2 Intake: 17:58 IV: 500ml; Total: 500ml. tw2 Outcome: 17:54 Discharge ordered by . rn 17:59 Patient left the ED. tw2 17:59 Discharged to home ambulatory, with significant other. tw2 17:59 Condition: stable 17:59 Discharge instructions given to patient, significant other, Instructed on discharge instructions, follow up and referral plans. Demonstrated understanding of instructions, follow-up care. Signatures: Rajinder Garcia RN Javon Price MD MD rn Wise, Tara, RN RN tw2 Josefina Perkins rg4 Minerva Stewart 3 Ángel David jp3
--- NOTE | 2018-11-18 17:54 | EDPHYS ---
Physician Documentation [facility] Name: Anastasia Childress Age: 28 yrs Sex: Female : 1990 Arrival Date: 11/18/2018 Time: 15:12 Bed 23 Private MD: Fred Godinez E ED Physician Javon Ortiz HPI: 11/18 16:49 This 28 yrs old Female presents to ER via Ambulatory with complaints of rn Weakness, Headache, Nausea. 16:49 The patient complains of pain to the top of head and forehead. The patient describes rn the headache as aching. Onset: The symptoms/episode began/occurred 2 day(s) ago. Associated signs and symptoms: Pertinent positives: malaise, Pertinent negatives: altered mental status, fever, vision changes, vision loss. Headache History: The patient has had previous headaches and this one is similar to previous episodes. The symptoms are alleviated by nothing. the symptoms are aggravated by nothing. The patient has experienced similar episodes in the past. Reports headaches for years, no clear diagnosis, reports for last 2 days increased headache, malaise, lightheaded, no syncope, no fever, no head trauma. . 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 tw2 Historical: - Allergies: 15:34 Bactrim; sg 15:34 Sulfa (Sulfonamide Antibiotics); sg - Home Meds: 16:16 Fioricet 50-300-40 mg Oral cap 1 cap as needed [Active]; gabapentin 100 mg Oral cap as tw2 needed [Active]; Xanax 1 mg Oral tab 1 tab 3 times per day [Active]; - PMHx: 15:34 Anxiety; cervical CA; chiari malformation; Depression; Migraines; sg - PSHx: 15:34 Tubal ligation; cyst removal; sg - Immunization history:: Adult Immunizations up to date. - Social history:: Smoking status: Patient/guardian denies using tobacco. - Ebola Screening: : Patient negative for fever greater than or equal to 101.5 degrees Fahrenheit, and additional compatible Ebola Virus Disease symptoms Patient denies exposure to infectious person Patient denies travel to an Ebola-affected area in the 21 days before illness onset No symptoms or risks identified at this time. - Family history:: not pertinent. - Hospitalizations: : No recent hospitalization is reported. ROS: 16:49 Constitutional: Negative for fever, chills, and weight loss, Eyes: Negative for injury, rn pain, redness, and discharge, Neck: Negative for injury, pain, and swelling, Cardiovascular: Negative for chest pain, palpitations, and edema, Respiratory: Negative for shortness of breath, cough, wheezing, and pleuritic chest pain, Abdomen/GI: Negative for abdominal pain, diarrhea, and constipation, MS/Extremity: Negative for injury and deformity, Skin: Negative for injury, rash, and discoloration, Neuro: + headache, no focal weakness/numbness Exam: 16:49 Constitutional: This is a well developed, well nourished patient who is awake, alert, rn and in no acute distress. Head/Face: Normocephalic, atraumatic. Eyes: Pupils equal round and reactive to light, extra-ocular motions intact. Lids and lashes normal. Conjunctiva and sclera are non-icteric and not injected. Cornea within normal limits. Periorbital areas with no swelling, redness, or edema. ENT: MMM Neck: Trachea midline, no thyromegaly or masses palpated, and no cervical lymphadenopathy. Supple, full range of motion without nuchal rigidity, or vertebral point tenderness. No Meningismus. Abdomen/GI: soft, non-tender MS/ Extremity: Pulses equal, no cyanosis. Neurovascular intact. Full, normal range of motion. Equal circumference. Neuro: Awake and alert, GCS 15, oriented to person, place, time, and situation. Cranial nerves II-XII grossly intact. Motor strength 5/5 in all extremities. Sensory grossly intact. Cerebellar exam normal. Vital Signs: 15:39 BP 124 / 80; Pulse 87; Resp 17; Temp 98.2; Pulse Ox 98% on R/A; sg 16:10 BP 120 / 69 LA Sitting (auto/reg); Pulse 59; Resp 18; Temp 98.5; Pulse Ox 100% on R/A; jp3 Pain 6/10; 17:07 BP 118 / 60; Pulse 81; Resp 17; Pulse Ox 100% on 2 lpm NC; tw2 16:10 pt reported "pain most in my head. some pain medications make my anxiety worse" jp3 [place] Coma Score: 17:52 Eye Response: spontaneous(4). Verbal Response: oriented(5). Motor Response: obeys rn commands(6). Total: 15. MDM: 16:10 Patient medically screened. rn 17:52 Differential diagnosis: migraine, tension headache, vasomotor headache. Data reviewed: rn vital signs, nurses notes, lab test result(s), and as a result, I will discharge patient. Counseling: I had a detailed discussion with the patient and/or guardian regarding: the historical points, exam findings, and any diagnostic results supporting the discharge/admit diagnosis, lab results, the need for outpatient follow up, to return to the emergency department if symptoms worsen or persist or if there are any questions or concerns that arise at home. Response to treatment: the patient's symptoms have mildly improved after treatment, and as a result, I will discharge patient. Special discussion: I discussed with the patient/guardian in detail that at this point there is no indication for admission to the hospital. It is understood, however, that if the symptoms persist or worsen the patient needs to return immediately for re-evaluation. Based on the history and exam findings, there is no indication for further emergent testing or inpatient evaluation. I discussed with the patient/guardian the need to see the neurologist for further evaluation of the symptoms. ED course: No acute findings on lab w/u or exam. Normal neuro exam. Will dc home as acute on chronic migraines, recommend neuro f/u. . 11/18 16:27 Order name: Urine Dipstick--Ancillary (enter results) 11/18 16:27 Order name: Urine --Ancillary (enter results) 11/18 16:31 Order name: CBC with Diff; Complete Time: 17:29 11/18 16:31 Order name: Basic Metabolic Panel; Complete Time: 17:29 11/18 16:32 Order name: [place] Screen Profile; Complete Time: 17:52 11/18 16:31 Order name: IV Start; Complete Time: 16:44 rn 11/18 16:32 Order name: EKG; Complete Time: 16:32 rn 11/18 16:32 Order name: EKG - Nurse/Tech; Complete Time: 16:44 rn Administered Medications: 16:42 Drug: Reglan 10 mg Route: IVP; Site: right antecubital; tw2 17:58 Follow up: Response: No adverse reaction tw2 16:44 Drug: NS 0.9% 1000 ml Route: IV; Rate: 1000 ml; Site: right antecubital; tw2 17:58 Follow up: Response: No adverse reaction; IV Status: Completed infusion; IV Intake: tw2 500ml 16:44 Drug: Motrin 800 mg Route: PO; tw2 17:58 Follow up: Response: No adverse reaction; Pain is decreased tw2 Disposition: 11/18/18 17:54 Discharged to Home. Impression: Migraine. - Condition is Stable. - Discharge Instructions: Migraine Headache. - Medication Reconciliation Form, Thank You Letter, Antibiotic Education, Prescription Opioid Use, Work release form form. - Follow up: Private Physician; When: As needed; Reason: Recheck today's complaints, Re-evaluation by your physician. - Problem is chronic. - Symptoms have improved. Signatures: Dispatcher [employer] EDRajinder Medrano RN RN sg Nieto, Roman, MD MD rn Wise, Tara, RN RN tw2 Corrections: (The following items were deleted from the chart) 17:59 17:54 11/18/2018 17:54 Discharged to Home. Impression: Migraine. Condition is Stable. tw2 Forms are Work release form, Medication Reconciliation Form, Thank You Letter, Antibiotic Education, Prescription Opioid Use. Follow up: Private Physician; When: As needed; Reason: Recheck today's complaints, Re-evaluation by your physician. Problem is chronic. Symptoms have improved. rn
[2018-11-18 20:11] LABS: Urine Blood NEGATIVE (NEG); Urine Glucose NEGATIVE (NEG); Urine Protein NEGATIVE (NEG); Urine pH 6.5 (5.0-7.0)
[2018-11-18 20:17] VITALS: TEMP 98.5; O2SAT 100
[2018-11-18 20:19] VITALS: BP 118/60
== END 2018-11-18 17:59 | disposition home or self-care (01) ==
LOC: ER 15:09
DX: G43.909 Migraine, unspecified, not intractable, without status migrainosus (principal); F32.9 Major depressive disorder, single episode, unspecified; F41.9 Anxiety disorder, unspecified; Z88.1 Allergy status to other antibiotic agents; Z88.2 Allergy status to sulfonamides; Z85.41 Personal history of malignant neoplasm of cervix uteri
CPT/HCPCS: 36415; 80048; 81003; 81025; 85025; 86308; 93005; 96361; 96374; 99284; J2765; J7030

== ENCOUNTER 2018-12-27 21:33 | Emergency (ER) | payer OTHER ==
[2018-12-27] MEDS ORDERED: KETOROLAC 30 MG/ML INJ ONE (22:50)
--- NOTE | 2018-12-27 23:24 | EDPHYS ---
Physician Documentation [facility] Name: Anastasia Childress Age: 28 yrs Sex: Female : 1990 Arrival Date: 12/27/2018 Time: 21:34 Bed 15 Private MD: Fred Godinez E ED Physician Aung Cannon HPI: 12/27 23:19 This 28 yrs old Female presents to ER via Ambulatory with complaints of Chest jr8 Pain, Dizziness. 23:19 The patient or guardian reports chest pain that is located primarily in the anterior jr8 chest wall, right. The pain radiates to right back. Associated signs and symptoms: Pertinent positives: dizziness. The chest pain is described as sharp. Duration: The patient or guardian reports multiple episodes, that are intermittent. Modifying factors: The symptoms are alleviated by nothing. the symptoms are aggravated by breathing, cough, palpation of area. Severity of pain: At its worst the pain was moderate in the emergency department the pain is unchanged. The patient has not experienced similar symptoms in the past. The patient has not recently seen a physician. 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 - Social history:: Smoking status: Patient uses tobacco products, denies chronic smoking, but will smoke occasionally. - Ebola Screening: : Patient negative for fever greater than or equal to 101.5 degrees Fahrenheit, and additional compatible Ebola Virus Disease symptoms Patient denies exposure to infectious person Patient denies travel to an Ebola-affected area in the 21 days before illness onset No symptoms or risks identified at this time. ROS: 23:19 Eyes: Negative for injury, pain, redness, and discharge, ENT: Negative for injury, jr8 pain, and discharge, Neck: Negative for injury, pain, and swelling, Respiratory: Negative for shortness of breath, cough, wheezing, and pleuritic chest pain, Abdomen/GI: Negative for abdominal pain, nausea, vomiting, diarrhea, and constipation, Back: Negative for injury and pain, MS/Extremity: Negative for injury and deformity, Skin: Negative for injury, rash, and discoloration, Neuro: Negative for headache, weakness, numbness, tingling, and seizure. 23:19 Cardiovascular: Positive for chest pain, Negative for edema, orthopnea, palpitations, paroxysmal nocturnal dyspnea. Exam: 23:19 Constitutional: This is a well developed, well nourished patient who is awake, alert, jr8 and in no acute distress. Eyes: Pupils equal round and reactive to light, extra-ocular motions intact. Lids and lashes normal. Conjunctiva and sclera are non-icteric and not injected. Cornea within normal limits. Periorbital areas with no swelling, redness, or edema. ENT: Nares patent. No nasal discharge, no septal abnormalities noted. Tympanic membranes are normal and external auditory canals are clear. Oropharynx with no redness, swelling, or masses, exudates, or evidence of obstruction, uvula midline. Mucous membranes moist. Neck: Trachea midline, no thyromegaly or masses palpated, and no cervical lymphadenopathy. Supple, full range of motion without nuchal rigidity, or vertebral point tenderness. No Meningismus. Cardiovascular: Regular rate and rhythm with a normal S1 and S2. No gallops, murmurs, or rubs. Normal PMI, no JVD. No pulse deficits. Respiratory: Lungs have equal breath sounds bilaterally, clear to auscultation and percussion. No rales, rhonchi or wheezes noted. No increased work of breathing, no retractions or nasal flaring. Abdomen/GI: Soft, non-tender, with normal bowel sounds. No distension or tympany. No guarding or rebound. No evidence of tenderness throughout. Back: No spinal tenderness. No costovertebral tenderness. Full range of motion. Skin: Warm, dry with normal turgor. Normal color with no rashes, no lesions, and no evidence of cellulitis. MS/ Extremity: Pulses equal, no cyanosis. Neurovascular intact. Full, normal range of motion. Neuro: Awake and alert, GCS 15, oriented to person, place, time, and situation. Cranial nerves II-XII grossly intact. Motor strength 5/5 in all extremities. Sensory grossly intact. Cerebellar exam normal. Normal gait. 23:19 Chest/axilla: Inspection: normal, Palpation: tenderness, that is moderate, of the right sternal border and anterior right chest wall , that totally reproduces the patient's complaints. 23:23 ECG was reviewed by the Attending Physician. jr8 Vital Signs: 21:38 BP 121 / 65; Pulse 63; Resp 18; Temp 97.9(TE); Pulse Ox 100% on R/A; Weight 72.12 kg; ed1 Height 4 ft. 11 in. (149.86 cm); Pain 7/10; 23:35 BP 105 / 56; Pulse 61; Resp 16; Pulse Ox 100% on R/A; jb4 21:38 Body Mass Index 32.11 (72.12 kg, 149.86 cm) ed1 MDM: 22:11 Patient medically screened. jr8 23:19 Data reviewed: vital signs, nurses notes, EKG, radiologic studies, plain films, and as jr8 a result, I will discharge patient. Data interpreted: Pulse oximetry: on room air is 100 %. Interpretation: normal. Test interpretation: by ED physician or midlevel provider: plain radiologic studies, No acute pulmonary, cardiac, or osseous finding on CXR. Counseling: I had a detailed discussion with the patient and/or guardian regarding: the historical points, exam findings, and any diagnostic results supporting the discharge/admit diagnosis, radiology results, the need for outpatient follow up, a family practitioner, to return to the emergency department if symptoms worsen or persist or if there are any questions or concerns that arise at home. Response to treatment: the patient's symptoms have markedly improved after treatment. 12/27 22:17 Order name: XRAY Chest (1 view) jr8 12/27 22:17 Order name: EKG - Nurse/Tech; Complete Time: 22:24 jr8 EC:23 Rate is 58 beats/min. Rhythm is regular, Sinus bradycardia. QRS [place] is Normal. [place] jr8 interval is normal at 142 msec. QRS interval is normal at 104 msec. QT interval is normal at 426 msec. No Q waves. T waves are Normal. No ST changes noted. Clinical impression: Sinus bradycardia and No evidence of ischemia. Interpreted by me. Reviewed by me. Administered Medications: 22:57 Drug: TORadol - Ketorolac 15 mg Route: IM; Site: left gluteus; jb4 23:27 Follow up: Response: No adverse reaction; Pain is decreased jb4 Disposition: 12/28 04:45 Co-signature as Attending Physician, Aung Cannon MD I agree with the assessment and tw4 plan of care. Disposition: 12/27/18 23:24 Discharged to Home. Impression: Other chest pain - Chest wall pain, Chondrocostal junction syndrome [Tietze]. - Condition is Stable. - Discharge Instructions: Chest Wall Pain, Costochondritis. - Prescriptions for Ibuprofen 800 mg Oral Tablet - take 1 tablet by ORAL route every 12 hours As needed take with food; 20 tablet. - Medication Reconciliation Form, Thank You Letter, Antibiotic Education, Prescription Opioid Use form. - Follow up: Fred Godinez MD; When: 5 - 6 days; Reason: Recheck today's complaints, Continuance of care, Re-evaluation by your physician. - Problem is new. - Symptoms have improved. Signatures: Dispatcher [employer] EDMS Maggie Gonzalez RN RN ed1 Albino Schwartz PA PA jr8 George Dietrich RN RN jb4 Aung Cannon MD MD tw4 Corrections: (The following items were deleted from the chart) 12/27 23:38 23:24 12/27/2018 23:24 Discharged to Home. Impression: Other chest pain - Chest wall jb4 pain; Chondrocostal junction syndrome [Tietze]. Condition is Stable. Forms are Medication Reconciliation Form, Thank You Letter, Antibiotic Education, Prescription Opioid Use. Follow up: Fred Godinez; When: 5 - 6 days; Reason: Recheck today's complaints, Continuance of care, Re-evaluation by your physician. Problem is new. Symptoms have improved. jr8
--- NOTE | 2018-12-27 23:24 | ER ---
Nurse's Notes [facility] Name: Anastasia Childress Age: 28 yrs Sex: Female : 1990 Arrival Date: 12/27/2018 Time: 21:34 Bed 15 Private MD: Fred Godinez E Diagnosis: Other chest pain-Chest wall pain;Chondrocostal junction syndrome [Tietze] Presentation: 12/27 21:37 Presenting complaint: Patient states: I have a sharp pain in the center of my chest ed1 that gets worse when I lay down and cough. Transition of care: patient was not received from another setting of care. Onset of symptoms was December 25, 2018. Risk Assessment: Do you want to hurt yourself or someone else? Patient reports no desire to harm self or others. Initial Sepsis Screen: Does the patient meet any 2 criteria? No. Patient's initial sepsis screen is negative. Does the patient have a suspected source of infection? No. Patient's initial sepsis screen is negative. Care prior to arrival: Medication(s) given: "anxiety pill". 21:37 Method Of Arrival: Ambulatory ed1 21:37 Acuity: MOISES 3 ed1 Triage Assessment: 21:38 General: Appears in no apparent distress. Behavior is calm, cooperative. Pain: ed1 Complains of pain in chest Pain currently is 7 out of 10 on a pain scale. Cardiovascular: Reports chest pain, Heart tones S1 S2 present Patient's skin is warm and dry. 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 - Social history:: Smoking status: Patient uses tobacco products, denies chronic smoking, but will smoke occasionally. - Ebola Screening: : Patient negative for fever greater than or equal to 101.5 degrees Fahrenheit, and additional compatible Ebola Virus Disease symptoms Patient denies exposure to infectious person Patient denies travel to an Ebola-affected area in the 21 days before illness onset No symptoms or risks identified at this time. Screenin:05 Abuse screen: Denies threats or abuse. Nutritional screening: No deficits noted. jb4 Tuberculosis screening: No symptoms or risk factors identified. Fall Risk None identified. Assessment: 22:05 General: Appears in no apparent distress. uncomfortable, Behavior is calm, cooperative, jb4 appropriate for age. Pain: Complains of pain in anterior aspect of right upper chest Pain radiates to right subscapular area Pain currently is 6 out of 10 on a pain scale. Quality of pain is described as stabbing, Pain began 1 day ago. Neuro: Level of Consciousness is awake, alert, obeys commands, Oriented to person, place, time, situation. Cardiovascular: Patient's skin is warm and dry. Respiratory: Airway is patent Respiratory effort is even, unlabored, Respiratory pattern is regular, symmetrical. GI: No signs and/or symptoms were reported involving the gastrointestinal system. : No signs and/or symptoms were reported regarding the genitourinary system. EENT: No signs and/or symptoms were reported regarding the EENT system. Derm: Skin is intact, Skin is pink, warm \\T\\ dry. Musculoskeletal: Circulation, motion, and sensation intact. 23:35 Reassessment: Patient appears in no apparent distress at this time. Patient and/or jb4 family updated on plan of care and expected duration. Pain level reassessed. Patient is alert, oriented x 3, equal unlabored respirations, skin warm/dry/pink. Pt discharged home with friend. ambulated with steady gait, no IV this visit. Vital Signs: 21:38 BP 121 / 65; Pulse 63; Resp 18; Temp 97.9(TE); Pulse Ox 100% on R/A; Weight 72.12 kg; ed1 Height 4 ft. 11 in. (149.86 cm); Pain 7/10; 23:35 BP 105 / 56; Pulse 61; Resp 16; Pulse Ox 100% on R/A; jb4 21:38 Body Mass Index 32.11 (72.12 kg, 149.86 cm) ed1 ED Course: 21:34 Patient arrived in ED. am2 21:35 Godinez, Fred, MD is Private Physician. am2 21:38 Triage completed. ed1 21:38 Arm band placed on. ed1 21:44 George Dietrich RN is Primary Nurse. jb4 21:56 Albino Schwartz PA is PHCP. jr8 21:56 Aung Cannon MD is Attending Physician. jr8 22:05 Patient has correct armband on for positive identification. Placed in gown. Bed in low jb4 position. Call light in reach. Side rails up X 1. Pulse ox on. NIBP on. 22:05 Patient maintains SpO2 saturation greater than 95% on room air. jb4 22:38 XRAY Chest (1 view) In Process Unspecified. EDMS 23:23 Fred Godinez MD is Referral Physician. jr8 23:35 No provider procedures requiring assistance completed. Patient did not have IV access jb4 during this emergency room visit. Administered Medications: 22:57 Drug: TORadol - Ketorolac 15 mg Route: IM; Site: left gluteus; jb4 23:27 Follow up: Response: No adverse reaction; Pain is decreased jb4 Outcome: 23:24 Discharge ordered by . jr8 23:35 Discharged to home ambulatory, with friend. jb4 23:35 Condition: stable 23:35 Discharge instructions given to patient, friend, Instructed on discharge instructions, follow up and referral plans. medication usage, Demonstrated understanding of instructions, follow-up care, medications, Prescriptions given X 1. 23:38 Patient left the ED. jb4 Signatures: Dispatcher [employer] EDMS Maggie Gonzalez RN RN ed1 Albino Schwartz PA PA jr8 George Dietrich RN RN jb4 Ally Coleman am2 Corrections: (The following items were deleted from the chart) 23:36 22:05 Pain: Complains of pain in anterior aspect of right upper chest Pain radiates to jb4 right subscapular area Pain currently is 6 out of 10 on a pain scale. Quality of pain is described as stabbing, jb4
[2018-12-27 23:56] VITALS: TEMP 97.9; O2SAT 100
[2018-12-27 23:57] VITALS: BP 105/56
--- NOTE | 2018-12-28 08:02 | RAD REPORT ---
EXAM DESCRIPTION: Bobby Single View12/27/2018 10:38 pm CLINICAL HISTORY: Chest pain COMPARISON: May 2018 FINDINGS: The lungs appear clear of acute infiltrate. The heart is normal size IMPRESSION: No acute abnormalities displayed
--- NOTE | 2018-12-28 10:40 | EKG ---
Test Date: 2018-12-27 Test Time: 21:55:40 Credit Office Manager: RENEE MEASUREMENT RESULTS: Intervals: Rate: 58 AR: 142 QRSD: 104 QT: 434 QTc: 426 [place]: P: 55 AR: 142 QRS: -13 T: 23 INTERPRETIVE STATEMENTS: Sinus bradycardia with sinus arrhythmia Incomplete right bundle branch block Borderline ECG Compared to ECG 11/18/2018 16:41:19 Incomplete right bundle-branch block now present Sinus rhythm no longer present T-wave abnormality no longer present Electronically Signed On 12-28-18 10:39:19 CDT by Tray Alvarez
== END 2018-12-27 23:38 | disposition home or self-care (01) ==
LOC: ER 21:33
DX: M94.0 Chondrocostal junction syndrome [Tietze] (principal); F41.9 Anxiety disorder, unspecified; F32.9 Major depressive disorder, single episode, unspecified; Z72.0 Tobacco use; Z88.1 Allergy status to other antibiotic agents; Z88.2 Allergy status to sulfonamides; Z85.41 Personal history of malignant neoplasm of cervix uteri
CPT/HCPCS: 71045; 93005; 96372; 99284

== ENCOUNTER 2019-01-17 13:37 | Emergency (ER) | payer OTHER ==
--- NOTE | 2019-01-17 14:18 | ER ---
Nurse's Notes [facility] Name: Anastasia Childress Age: 29 yrs Sex: Female : 1990 Arrival Date: 01/17/2019 Time: 13:40 Bed 23 Private MD: Fred Godinez E Diagnosis: Bronchitis, not specified as acute or chronic Presentation: 01/17 13:41 Presenting complaint: Sinus congestion, sore throat, and nonproductive cough x 3 days. ss Transition of care: patient was not received from another setting of care. Onset of symptoms was January 14, 2019. Risk Assessment: Do you want to hurt yourself or someone else? Patient reports no desire to harm self or others. Initial Sepsis Screen: Does the patient meet any 2 criteria? No. Patient's initial sepsis screen is negative. Does the patient have a suspected source of infection? No. Patient's initial sepsis screen is negative. Care prior to arrival: None. 13:41 Method Of Arrival: Ambulatory ss 13:41 Acuity: MOISES 4 ss Triage Assessment: 13:43 General: Behavior is calm, cooperative. 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 - Social history:: Smoking status: Patient uses tobacco products, denies chronic smoking, but will smoke occasionally, Patient/guardian denies using alcohol, street drugs, The patient lives with family. - Ebola Screening: : No symptoms or risks identified at this time. - Family history:: not pertinent. Screenin:43 Abuse screen: Denies threats or abuse. Denies injuries from another. Nutritional ls4 screening: No deficits noted. Tuberculosis screening: No symptoms or risk factors identified. Fall Risk None identified. Assessment: 13:43 General: Appears in no apparent distress. uncomfortable. Pain: Pain currently is 6 out ls4 of 10 on a pain scale. Neuro: No deficits noted. Cardiovascular: No deficits noted. Respiratory: Airway is patent Respiratory effort is even, unlabored, Breath sounds are clear. GI: No deficits noted. EENT: Reports pain in throat stuffy nose. Vital Signs: 13:42 BP 128 / 69; Pulse 94; Resp 16; Temp 98.3; Pulse Ox 100% on R/A; Weight 72.12 kg; ss Height 4 ft. 11 in. (149.86 cm); Pain 6/10; 14:44 BP 126 / 70; Pulse 78; Resp 16; Temp 98.4; Pulse Ox 99% on R/A; Pain 5/10; ls4 13:42 Body Mass Index 32.11 (72.12 kg, 149.86 cm) ED Course: 13:40 Patient arrived in ED. rg4 13:41 Fred Godinez MD is Private Physician. rg4 13:42 Triage completed. ss 13:42 Arm band placed on left wrist. ss 13:43 Patient has correct armband on for positive identification. Bed in low position. Call ls4 light in reach. Side rails up X 1. 13:44 Rajinder Garcia RN is Primary Nurse. 13:45 Cale Griffin MD is Attending Physician. ma2 14:43 No provider procedures requiring assistance completed. Patient did not have IV access ls4 during this emergency room visit. Administered Medications: 14:38 Drug: Pseudoephedrine 120 mg Route: PO; ls4 14:44 Follow up: Response: No adverse reaction ls4 Outcome: 14:17 Discharge ordered by . ma2 14:45 Discharged to home ambulatory, with family. ls4 14:45 Condition: stable 14:45 Discharge instructions given to patient, family, Instructed on discharge instructions, follow up and referral plans. medication usage, safety practices, Demonstrated understanding of instructions, follow-up care, medications, Prescriptions given X 4. 14:46 Patient left the ED. ls4 Signatures: Rajinder Garcia, RN ANDREAS Zora Mercado RN RN Josefina Perkins rg4 Cale Griffin MD MD al2 Jesi Goyal RN RN ls4
--- NOTE | 2019-01-17 14:18 | EDPHYS ---
Physician Documentation [facility] Name: Anastasia Childress Age: 29 yrs Sex: Female : 1990 Arrival Date: 01/17/2019 Time: 13:40 Bed 23 Private MD: Fred Godinez E ED Physician Cale Griffin HPI: 01/17 14:16 This 29 yrs old Female presents to ER via Ambulatory with complaints of ma2 Congestion, Cough, Sore Throat. 14:16 The patient or guardian reports cough. Onset: The symptoms/episode began/occurred ma2 gradually, 1 week(s) ago. Severity of symptoms: At their worst the symptoms were very mild, in the emergency department the symptoms have resolved. Associated signs and symptoms: Pertinent negatives: fever, rhinorrhea. The patient has not experienced similar symptoms in the past. 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 - Social history:: Smoking status: Patient uses tobacco products, denies chronic smoking, but will smoke occasionally, Patient/guardian denies using alcohol, street drugs, The patient lives with family. - Ebola Screening: : No symptoms or risks identified at this time. - Family history:: not pertinent. ROS: 14:16 Constitutional: Negative for fever, chills, and weight loss, Cardiovascular: Negative ma2 for chest pain, palpitations, and edema, Respiratory: Negative for shortness of breath, cough, wheezing, and pleuritic chest pain, Abdomen/GI: Negative for abdominal pain, nausea, diarrhea, and constipation, Neuro: Negative for headache, weakness, numbness, tingling, and seizure, Psych: Negative for depression, anxiety, suicide ideation, homicidal ideation, and hallucinations, Allergy/Immunology: Negative for hives, rash, and allergies. 14:16 Respiratory: Positive for cough, wheezing, Negative for orthopnea, pleurisy. 14:16 All other systems are negative. Exam: 14:16 Constitutional: This is a well developed, well nourished patient who is awake, alert, ma2 and in no acute distress. ENT: Nares patent. No nasal discharge, no septal abnormalities noted. Tympanic membranes are normal and external auditory canals are clear. Oropharynx with no redness, swelling, or masses, exudates, or evidence of obstruction, uvula midline. Mucous membranes moist. Chest/axilla: Normal chest wall appearance and motion. Nontender with no deformity. No lesions are appreciated. Cardiovascular: Regular rate and rhythm with a normal S1 and S2. No gallops, murmurs, or rubs. Normal PMI, no JVD. No pulse deficits. Respiratory: Lungs have equal breath sounds bilaterally, clear to auscultation and percussion. No rales, rhonchi or wheezes noted. No increased work of breathing, no retractions or nasal flaring. Abdomen/GI: Soft, non-tender, with normal bowel sounds. No distension or tympany. No guarding or rebound. No evidence of tenderness throughout. MS/ Extremity: Pulses equal, no cyanosis. Neurovascular intact. Full, normal range of motion. Neuro: Awake and alert, GCS 15, oriented to person, place, time, and situation. Cranial nerves II-XII grossly intact. Motor strength 5/5 in all extremities. Sensory grossly intact. Cerebellar exam normal. Normal gait. Vital Signs: 13:42 BP 128 / 69; Pulse 94; Resp 16; Temp 98.3; Pulse Ox 100% on R/A; Weight 72.12 kg; ss Height 4 ft. 11 in. (149.86 cm); Pain 6/10; 14:44 BP 126 / 70; Pulse 78; Resp 16; Temp 98.4; Pulse Ox 99% on R/A; Pain 5/10; ls4 13:42 Body Mass Index 32.11 (72.12 kg, 149.86 cm) ss MDM: 13:45 Patient medically screened. ma2 14:16 Differential Diagnosis: Bronchitis Upper Respiratory Infection Pharyngitis. Data ma2 reviewed: vital signs, nurses notes. Counseling: I had a detailed discussion with the patient and/or guardian regarding: the historical points, exam findings, and any diagnostic results supporting the discharge/admit diagnosis, the presence of at least one elevated blood pressure reading (>120/80) during this emergency department visit, the need for outpatient follow up. Response to treatment: the patient's symptoms have markedly improved after treatment. Administered Medications: 14:38 Drug: Pseudoephedrine 120 mg Route: PO; ls4 14:44 Follow up: Response: No adverse reaction ls4 Disposition: 01/17/19 14:17 Discharged to Home. Impression: Bronchitis, not specified as acute or chronic. - Condition is Stable. - Discharge Instructions: Acute Bronchitis, Adult. - Prescriptions for Tylenol- Codeine #3 300-30 mg Oral Tablet - take 2 tablet by ORAL route every 6 hours As needed; 30 tablet. Zithromax Z- Ryan 250 mg Oral Tablet - take 1 tablet by ORAL route as directed for 5 days Day 1 - take two (2) tablets one time. Day 2, 3, 4 , 5 take one (1) tablet once daily.; 6 tablet. Guaifenesin- DM 10-100 mg/5 mL Oral Liquid - take 5 milliliter by ORAL route every 8 hours As needed as needed; 60 milliliter. Medrol (Ryan) 4 mg Oral Tablets, Dose Pack - take 1 tablet by ORAL route as directed - follow package instructions; 1 packet. - Medication Reconciliation Form, Thank You Letter, Antibiotic Education, Prescription Opioid Use form. - Follow up: Private Physician; When: Tomorrow; Reason: If symptoms return. Signatures: Zora Mercado RN RN Cale Griffin MD MD ma2 Jesi Goyal RN RN ls4 Corrections: (The following items were deleted from the chart) 14:46 14:17 01/17/2019 14:17 Discharged to Home. Impression: Bronchitis, not specified as ls4 acute or chronic. Condition is Stable. Forms are Medication Reconciliation Form, Thank You Letter, Antibiotic Education, Prescription Opioid Use. Follow up: Private Physician; When: Tomorrow; Reason: If symptoms return. ma2
[2019-01-17] MEDS ORDERED: PSEUDOEPHEDRINE 30 MG TAB PO ONE (15:00)
[2019-01-17 19:18] VITALS: BP 126/70; TEMP 98.4; O2SAT 99
== END 2019-01-17 14:46 | disposition home or self-care (01) ==
LOC: ER 13:37
DX: J40 Bronchitis, not specified as acute or chronic (principal); F41.9 Anxiety disorder, unspecified; C53.9 Malignant neoplasm of cervix uteri, unspecified; F32.9 Major depressive disorder, single episode, unspecified; Z72.0 Tobacco use; Z88.1 Allergy status to other antibiotic agents; Z88.2 Allergy status to sulfonamides
CPT/HCPCS: 99283

== ENCOUNTER 2022-06-10 21:28 | Emergency (ER) | payer OTHER ==
--- OUTSIDE RECORDS SUMMARY | 2022-06-10 21:34 | XMS REPORT | Continuity of Care Document ---
:1990 Author Organization [facility] t Address [address] [place] [address] Care Team Providers Name Role Phone Marta Willa Attending Clinician Unavailable Diego Galvan Attending Clinician Unavailable Cristofer Valentin V Attending Clinician Unavailable Jr Gomez Attending Clinician Unavailable Cheko Euceda Attending Clinician Unavailable Jorge Luis Valencia Attending Clinician Unavailable AWILDA LEDESMA Attending Clinician Unavailable Awilda Ledesma MD Attending Clinician Doctor Unassigned, [place] Attending Clinician Unavailable CENTER[facility] Admitting Clinician Unavailable Fred Rider Admitting Clinician Unavailable Physician, No Primary or Family Admitting Clinician Unavaila [facility] Payers Payer Name Policy Type Policy Number Effective Date Expiration Date S rashaad [facility] [id number] 2018 00:00:00 PLUS Problems Condition Condition Condition Status Onset Resolution Last Treating Co mments Source Name Details Category Date Date Treatment Clinician Date No known No known Disease Unive rs active active ity of problems problems [facility] Allergies, Adverse Reactions, Alerts Allergy Allergy Status Severity Reaction(s) Onset Inactive Treating Comm ents Source Name Type Date Date Clinician sulfamet DA Active SV HIVES [facility] hoxazole -21 [place] [facility] trimetho DA Active SV HIVES 2021-0 [facility] prim 2-21 [place] 00:[facility]: e [facility] sulfamet DA Active SV HIVES 2020-1 [facility] hoxazole 2-22 [place] 00:[facility]: e [facility] trimetho DA Active SV HIVES 2020-1 [facility] prim 2-22 [place] 00:[facility]: e 00 [facility] sulfamet DA Active SV 2020-0 [facility] hoxazole 8-24 [place] 00:00: e 00 [facility] trimetho DA Active SV 2020-0 [facility] prim 8-24 [place] 00:00: e 00 [facility] sulfamet DA Active SV HIVES 2020-0 [facility] hoxazole 8-24 [place] 00:00: e 00 [facility] trimetho DA Active SV HIVES 2020-0 [facility] prim 8-24 [place] 00:00: e 00 [facility] No Known DA Active U [facility] Allergie 1- Clear s 00:00: Bautista 00 [facility] No Known DA Active U 2020-0 [facility] Allergie 1-01 Clear s 00:00: Bautista 00 [facility] Sulfa Propensi Active Rash 2016-08 Univers (Sulfona ty to 2-10 ity of mide adverse 00:00: [place] Antibiot reaction 00 Medica l ics) s Branch SULFA Drug Active Rash 2016-08 Univers (SULFONA Class 2-10 ity of MIDE 00:00: [place] ANTIBIOT 00 Medical ICS) Branch Social History Social Habit Start Date Stop Date Quantity Comments Source Exposure to Not sure [facility] SARS-CoV-2 (event) [facility] History of tobacco Cigarette Smoker University of use [facility] Cigarettes smoked 2020-12-12 2020-12-12 Univers ity of current (pack per 00:00:00 00:00:00 ) - Reported Branch Cigarette 2020-12-12 2020-12-12 University of pack-years 00:00:00 00:00:00 [facility] Tobacco use and 2020-12-12 2020-12-12 Never used Universit y of exposure 00:00:00 00:00:00 [facility] Alcohol intake 2015-10-02 2015-10-02 University of 00:00:00 00:00:00 [facility] Sex [birth year] Universit y of 00:00:00 00:00:00 [facility] Smoking Status Start Date Stop Date Source Current every day smoker 2020-12-12 00:00:00 Uni versity [facility] Unknown if ever smoked [facility] Medications Ordered Filled Start Stop Current Ordering Indication Dosage Frequency Signature Comments Components Source Medication Medication Date Date Medication? Clinician (SIG) Name Name benzonatate Yes [id number] 100mg Take 1 Univers 100 mg 5-30 capsule by ity of capsule 00:00: mouth 3 [place] (three) Medical times Branch daily as needed for Cough. benzonatate Yes [id number] 100mg Take 1 Univers 100 mg 5-30 capsule by ity of capsule 00:00: mouth 3 [place] (three) Medical times Branch daily as needed for Cough. benzonatate Yes [id number] 100mg Take 1 Univers 100 mg 5-30 capsule by ity of capsule 00:00: mouth 3 [place] (three) Medical times Branch daily as needed for Cough. benzonatate Yes [id number] 100mg Take 1 Univers 100 mg 5-30 capsule by ity of capsule 00:00: mouth 3 [place] (three) Medical times Branch daily as needed for Cough. benzonatate Yes [id number] 100mg Take 1 Univers 100 mg 5-30 capsule by ity of capsule 00:00: mouth 3 [place] (three) Medical times Branch daily as needed for Cough. benzonatate Yes [id number] 100mg Take 1 Univers 100 mg 5-30 capsule by ity of capsule 00:00: mouth 3 [place] (three) Medical times Branch daily as needed for Cough. proMETHazin 2018-0 Yes 25mg Take 1 Univ ers e 25 mg 9-12 tablet by ity of tablet 00:00: mouth [place] 00 every 6 Medical (six) Branch hours as needed for Nausea and Vomiting (N/V). proMETHazin 2018-0 Yes 25mg Take 1 Univ ers e 25 mg 9-12 tablet by ity of tablet 00:00: mouth [place] 00 every 6 Medical (six) Branch hours as needed for Nausea and Vomiting (N/V). proMETHazin 2018-0 Yes 25mg Take 1 Univ ers e 25 mg 9-12 tablet by ity of tablet 00:00: mouth [place] 00 every 6 Medical (six) Branch hours as needed for Nausea and Vomiting (N/V). proMETHazin 2018-0 Yes 25mg Take 1 Univ ers e 25 mg 9-12 tablet by ity of tablet 00:00: mouth [place] 00 every 6 Medical (six) Branch hours as needed for Nausea and Vomiting (N/V). proMETHazin 2018-0 Yes 25mg Take 1 Univ ers e 25 mg 9-12 tablet by ity of tablet 00:00: mouth [place] 00 every 6 Medical (six) Branch hours as needed for Nausea and Vomiting (N/V). proMETHazin 2018-0 Yes 25mg Take 1 Univ ers e 25 mg 9-12 tablet by ity of tablet 00:00: mouth [place] 00 every 6 Medical (six) Branch hours as needed for Nausea and Vomiting (N/V). promethazin 2016-08 Yes 5mL Take 5 mL U nivers e-codeine 2-10 by mouth 4 ity of 6.25-10 00:00: (four) [place] mg/5 mL 00 times Medical syrup daily as Branch needed for Cough. promethazin 2016-08 Yes 5mL Take 5 mL U nivers e-codeine 2-10 by mouth 4 ity of 6.25-10 00:00: (four) [place] mg/5 mL 00 times Medical syrup daily as Branch needed for Cough. promethazin 2016-08 Yes 5mL Take 5 mL U nivers e-codeine 2-10 by mouth 4 ity of 6.25-10 00:00: (four) [place] mg/5 mL 00 times Medical syrup daily as Branch needed for Cough. promethazin 2016-08 Yes 5mL Take 5 mL U nivers e-codeine 2-10 by mouth 4 ity of 6.25-10 00:00: (four) [place] mg/5 mL 00 times Medical syrup daily as Branch needed for Cough. promethazin 2016-08 Yes 5mL Take 5 mL U nivers e-codeine 2-10 by mouth 4 ity of 6.25-10 00:00: (four) [place] mg/5 mL 00 times Medical syrup daily as Branch needed for Cough. promethazin 2016-08 Yes 5mL Take 5 mL U nivers e-codeine 2-10 by mouth 4 ity of 6.25-10 00:00: (four) [place] mg/5 mL 00 times Medical syrup daily as Branch needed for Cough. amitriptyli 2015-0 Yes 25mg Take 1 Tab Univers ne (ELAVIL) 3-18 by mouth ity of 25 mg 00:00: at [place] tablet 00 bedtime. Medical Branch amitriptyli 0 Yes 25mg Take 1 Tab Univers ne (ELAVIL) 3-18 by mouth ity of 25 mg 00:00: at [place] tablet 00 bedtime. Medical Branch amitriptyli 0 Yes 25mg Take 1 Tab Univers ne (ELAVIL) 3-18 by mouth ity of 25 mg 00:00: at [place] tablet 00 bedtime. Medical Branch amitriptyli 0 Yes 25mg Take 1 Tab Univers ne (ELAVIL) 3-18 by mouth ity of 25 mg 00:00: at [place] tablet 00 bedtime. Medical Branch amitriptyli Yes 25mg Take 1 Tab Univers ne (ELAVIL) 3-18 by mouth ity of 25 mg 00:00: at [place] tablet 00 bedtime. Medical Branch amitriptyli 0 Yes 25mg Take 1 Tab Univers ne (ELAVIL) 3-18 by mouth ity of 25 mg 00:00: at [place] tablet 00 bedtime. Medical Branch SERTRALINE Yes Take by [facility] ers HCL (ZOLOFT 2-10 mouth. ity of ORAL) 19:59: [address] ALPRAZOLAM Yes Take by [facility] ers (XANAX 2-10 mouth. ity of ORAL) 19:59: [address] Branch SERTRALINE Yes Take by [facility] ers HCL (ZOLOFT 2-10 mouth. ity of ORAL) 19:59: [address] Branch ALPRAZOLAM Yes Take by [facility] ers (XANAX 2-10 mouth. ity of ORAL) 19:59: [address] Branch SERTRALINE Yes Take by [facility] ers HCL (ZOLOFT 2-10 mouth. ity of ORAL) 19:59: [address] Branch ALPRAZOLAM Yes Take by [facility] ers (XANAX 2-10 mouth. ity of ORAL) 19:59: [address] SERTRALINE Yes Take by [facility] ers HCL (ZOLOFT 2-10 mouth. ity of ORAL) 19:59: [address] ALPRAZOLAM Yes Take by [facility] ers (XANAX 2-10 mouth. ity of ORAL) 19:59: [address] SERTRALINE Yes Take by [facility] ers HCL (ZOLOFT 2-10 mouth. ity of ORAL) 19:59: [address] ALPRAZOLAM Yes Take by [facility] ers (XANAX 2-10 mouth. ity of ORAL) 19:59: [address] SERTRALINE Yes Take by [facility] ers HCL (ZOLOFT 2-10 mouth. ity of ORAL) 19:59: [address] ALPRAZOLAM Yes Take by [facility] ers (XANAX 2-10 mouth. ity of ORAL) 19:59: [address] Vital Signs Vital Name Observation Time Observation Value Comments Source Systolic blood 2020-12-12 15:47:00 118 mm[Hg] Univer [facility]ity [facility] Diastolic blood 2020-12-12 15:47:00 70 mm[Hg] Unive rsity [facility] Heart rate 2020-12-12 15:47:00 78 /min [facility] Body temperature 2020-12-12 15:47:00 36.56 Suzy [facility] Body height 2020-12-12 15:47:00 149.9 cm [facility] Body weight 2020-12-12 15:47:00 69.4 kg [facility] BMI 2020-12-12 15:47:00 30.90 kg/m2 [facility] Oxygen saturation in 2020-12-12 15:47:00 99 /min [facility] Arterial blood by [facility] Pulse oximetry Branch Systolic blood 2020-12-12 15:47:00 118 mm[Hg] Univer sity of [facility] Diastolic blood 2020-12-12 15:47:00 70 mm[Hg] Unive rsity of [facility] Heart rate 2020-12-12 15:47:00 78 /min [facility] Body temperature 2020-12-12 15:47:00 36.56 Suzy [facility] Body height 2020-12-12 15:47:00 149.9 cm [facility] Body weight 2020-12-12 15:47:00 69.4 kg [facility] BMI 2020-12-12 15:47:00 30.90 kg/m2 [facility] Oxygen saturation in 2020-12-12 15:47:00 99 /min [facility] Arterial blood by [facility] Pulse oximetry Branch Procedures Procedure Date / Time Performed Performing Clinician [facility] e ASSIGNMENT OF BENEFITS 2020-12-12 15:34:02 Doctor Unassigned, No University [facility] Name Medical Branch REFERRAL- 2020-11-26 05:01:00 Doctor Unassigned, No [facility] [place] [facility] Name Medical Branch REFERRAL- 2020-10-22 06:01:00 Doctor Unassigned, No [facility] Name Medical Branch REFERRAL- 2020-02-15 05:01:00 Doctor [facility]igned, No [facility] Name Medical Branch Encounters Start End Encounter Admission Attending Care Care Encounter Source Date/Time Date/Time Type Type Clinicians Facility Department ID 2020-09-01 Inpatient HCACL DOMENICO [id number] [facility] 03:58:00 90 [facility] 2020-08-23 Inpatient HCABM FERS [id number] [facility] 06:04:00 54 [facility] 2022-02-24 2022-02-24 Emergency EM Marta, [facility] [id number] [facility] 15:12:00 15:40:00 Willa 97 [facility] 2022-02-24 2022-02-24 Emergency EM Marta HCABM HCABM [id number] [facility] 15:12:00 15:40:00 Willa [id number] [facility] 2021-10-13 2021-10-13 [id number] [facility] 18:29:00 22:27:00 Diego 85 [facility] 2021-10-03 2021-10-03 Emergency [facility] Barbie[facility] [id number] [facility] 09:37:00 12:07:00 Cristofer 15 [facility] 2021-09-15 2021-09-15 Emergency EM Jason, [facility] F[facility] [id number] [facility] 13:30:00 14:23:00 Jr 42 [facility] 2021-08-23 2021-08-23 Emergency EM Ok, [facility] F[facility] [id number] [facility] 11:59:00 12:52:00 Cheko 67 [facility] 2021-08-13 2021-08-13 Emergency EM Maneevese, [facility] FERS [id number] [facility] 13:14:00 14:53:00 Cristofer 24 [facility] 2021-04-22 2021-04-22 Emergency EM Maneevese, [facility] [id number] [facility] 13:13:00 14:56:00 Cristofer 57 [facility] 2021-04-15 2021-04-15 Emergency EM Bannur, [facility] [id number] [facility] 18:11:00 21:09:00 Jorge Luis 30 [facility] 2021-01-28 2021-01-28 Outpatient R BALTAZAR, [facility] [id number] Univers 00:00:00 00:00:00 AWILDA [facility] 2021-01-07 2021-01-07 Outpatient R BALTAZAR, [facility] [id number] Univers 00:00:00 00:00:00 AWILDA regalado [facility] 2020-12-30 2020-12-30 Outpatient R BALTAZAR, [facility] [id number] Univers 10:45:00 10:45:00 AWILDA regalado [facility] 2020-12-12 2020-12-12 [facility] [id number] 10:36:20 11:19:19 Visit Awilda Quinn 350.1.13.10 April 4.2.7.2.686 [place]awanna [id number] [address] 2020-12-12 2020-12-12 [facility] [id number] [facility] 10:36:20 11:19:19 Visit Awilda Quinn [id number] [place] Profess[place] [phone] Il dical [address] 2020-12-12 2020-12-12 Outpatient R BALTAZAR, [facility] [id number] [facility] 10:00:00 10:00:00 AWILDA regalado [facility] 2020-12-12 2020-12-12 Orders Doctor CRESCENCIO [id number] Univers 00:00:00 00:00:00 Only Unassigned, ZEESHAN 350.1.13.10 ity of [place] [facility] 4.2.7.2.686 Konstantin as [id number] [address] 2020-11-26 2020-11-26 Orders Doctor PRATHER [id number] 00:00:00 00:00:00 Only Unassigned, ZEESHAN 350.1.13.10 [place] [facility] 4.2.7.2.686 [id number] 2020-11-26 2020-11-26 Orders Doctor CRESCENCIO He[place].[id number] Univers 00:00:00 00:00:00 Only Unassigned, ZEESHAN 350.1.13.10 ity of [place] [facility] 4.2.7.2.686 Konstantin as [id number] [address] 2020-10-22 2020-10-22 Orders Doctor CRESCENCIO [id number] Univers 00:00:00 00:00:00 Only Unassigned, ZEESHAN 350.1.13.10 ity of [place] [facility] 4.2.7.2.686 Konstantin as [id number] [address] 2020-02-15 2020-02-15 Orders Doctor CRESCENCIO [id number] Univers 00:00:00 00:00:00 Only Unassigned, ZEESHAN 350.1.13.10 ity of [place] [facility] 4.2.7.2.686 Konstantin as [phone] [address] Results Test Description Test Time Test Comments Results Result Comments Source URINALYSIS COMPLETE 2022-02-25 05:48:00 Test Item Value Reference Range Interpretation Comme nts UA COLOR (test code = COLU) YELLOW YELLOW UA APPEARANCE (test code = APPU) SLIGHT CLOUDY CLEAR A UA GLUCOSE DIPSTICK (test code = DGLUU) norm mg/dL NEGATIVE UA BILIRUBIN DIPSTICK (test code = BILU) NEGATIVE mg/dL NEGATIVE UA KETONE DIPSTICK (test code = KETU) neg mg/dL NEGATIVE UA SPECIFIC GRAVITY (test code = SGU) 1.010 1.001-1.035 UA BLOOD DIPSTICK (test code = CARMEN) neg Bill/uL NEGATIVE UA PH DIPSTICK (test code = MARCIAL) 8.0 5.0-8.0 UA PROTEIN DIPSTICK (test code = PROU) 15 (TRACE) mg/dL Neg-15 A UA UROBILINIOGEN DIPSTICK (test code = URO) 1 mg/dL 0.0-0.2 A UA NITRITE DIPSTICK (test code = ROBERT) NEGATIVE NEGATIVE UA LEUKOCYTE ESTERASE DIPSTICK (test code = 100 Darlyn/uL (1+) uL NEGA TIVE A LEUU) UA WBC (test code = WBCU) 5-10 per HPF 0-5 A UA RBC (test code = RBCU) NONE SEEN per HPF 0-5 UA EPITHELIAL CELLS (test code = EPIU) Few (2-5/hpf) per HPF Few UA BACTERIA (test code = BACU) MODERATE per HPF NONE A UA MUCUS (test code = MUCU) FEW per LPF NONE-FEW Urine Source? Clean CatchUR HCG [id number] 05:48:00 Test Item Value Reference Range Interpretation Comments UR HCG QUAL (test NEGATIVE This HCGQL test is NOT code = HCGQLU) applicable fo r MALE patients.Check with nurse about probable order error.If Tumor Marker Test needed, nu rse should order test "HCG TU"(Test #550.21634)---- - Urine Source? Clean CatchDRUGS OF ABUSE SCREEN [id number] 05:48:00 Test Item Value Reference Range Interpretation Comments URN COCAINE (test code = NEGATIVE NEGATIVE COCAURN) URN CANNABINOIDS (test NEGATIVE NEGATIVE code = CANNABURN) URN AMPHETAMINE (test NEGATIVE NEGATIVE code = AMPHETURN) URN BARBITURATE (test NEGATIVE NEGATIVE code = BARBITURN) URN BENZODIAZEPINE (test NEGATIVE NEGATIVE code = BENZOURN) URN OPIATES (test code = NEGATIVE See_Comment [A utomated message] OPIATURN) The system [employer] generated this result transmitted ref erence range: <300 ng/ mL. The reference r vinh was not used to interpret this result as normal/abnor mal. URN PHENCYCLIDINE (PCP) NEGATIVE NEGATIVE (test code = PHENCURN) Urine Source? Clean CatchSTREPTOCOCCUS PCR [id number] 10:43:00 Test Item Value Reference Range Interpretation Comments STREPTOCOCCUS DYSGALACTIAE NEGATIVE FOR G/C NEGATIVE (test code = STREPGC) STREPA MOLECULAR (test NEGATIVE FOR GRP A NEGATIVE code = STREPAMOL) COVID 19 INHOUSE [id number] 21:28:00 Test Item Value Reference Range Interpretation Comments COVID 19 INHOUSE AG (test code = NEGATIVE NEGATIVE [id number]) UR HCG [id number] 11:28:00 Test Item Value Reference Range Interpretation Comments UR HCG QUAL (test NEGATIVE This HCGQL test is NOT code = HCGQLU) applicable fo r MALE patients.Check with nurse about probable order error.If Tumor Marker Test needed, nu rse should order test "HCG TU"(Test #550.50919)---- - COVID 19 INHOUSE [id number] 11:02:00 Test Item Value Reference Range Interpretation Comments COVID 19 INHOUSE AG (test code = NEGATIVE NEGATIVE [id number]) URINALYSIS [id number] 11:01:00 Test Item Value Reference Range Interpretation Comments UA COLOR (test code = YELLOW YELLOW COLU) UA APPEARANCE (test code hazy CLEAR = APPU) UA GLUCOSE DIPSTICK (test norm mg/dL NEGATIVE code = DGLUU) UA BILIRUBIN DIPSTICK NEGATIVE mg/dL NEGATIVE (test code = BILU) UA KETONE DIPSTICK (test neg mg/dL NEGATIVE code = KETU) UA SPECIFIC GRAVITY (test 1.010 1.001-1.035 code = SGU) UA BLOOD DIPSTICK (test neg Bill/uL NEGATIVE code = CARMEN) UA PH DIPSTICK (test code 7.0 5.0-8.0 = MARCIAL) UA PROTEIN DIPSTICK (test neg mg/dL Neg-15 code = PROU) UA UROBILINIOGEN DIPSTICK norm mg/dL 0.0-0.2 (test code = URO) UA NITRITE DIPSTICK (test NEGATIVE NEGATIVE code = ROBERT) UA LEUKOCYTE ESTERASE 25 Darlyn/uL (Trace) uL NEGATIVE A DIPSTICK (test code = LEUU) UA WBC (test code = WBCU) 0-5 per HPF 0-5 UA RBC (test code = RBCU) 0-3 per HPF 0-5 UA EPITHELIAL CELLS (test Few (2-5/hpf) per Few code = EPIU) HPF UA BACTERIA (test code = FEW per HPF NONE BACU) URINALYSIS W/O [id number] 11:01:00 Test Item Value Reference Range Interpretation Comments UA MICROSCOPIC NEEDED? (test code = YES UAMICRO) COVID 19 INHOUSE [id number] 14:09:00 Test Item Value Reference Range Interpretation Comments COVID 19 INHOUSE AG (test code = NEGATIVE NEGATIVE [id number]) COVID 19 INHOUSE [id number] 12:40:00 Test Item Value Reference Range Interpretation Comments COVID 19 INHOUSE AG (test code = NEGATIVE NEGATIVE [id number]) COVID 19 INHOUSE [id number] 14:43:00 Test Item Value Reference Range Interpretation Comments COVID 19 INHOUSE AG (test code = NEGATIVE NEGATIVE [id number]) - XR CHEST 1 [id number] 14:37:00 [facility] [place])Name: RAMA EDGAR : 1990 Sex: F Name: RAMA EDGAR [facility] : 1990 Age/S:31 /F [address] [facility] Unit#:[id number] Loc: [place] [address] Phys: Cristofer Valentin MD Dis Date: PHONE #: [phone] Status: REG ER FAX #: [phone] Exam Date: 04/22/2021 Reason: CHEST PAIN EXAMS: CPT CODE: [id number] XR CHEST 1 V [id number] REASON FOR EXAM: CHEST PAIN Exam Order Date: 04/22/2021 1:40 PM Ordering M.D.: Cristofer Valentin MD PROCEDURE: - XR CHEST 1 V COMPARISON: None FINDINGS: The lungs are clear. There is no pleural effusion or pneumothorax. Pulmonary vascularity is within normal limits. Cardiomediastinal silhouette is normal in size for technique. The mediastinal contours are within normal limits. Musculoskeletal structures are within normal limits. The visualized upper abdomen is within normal limits. IMPRESSION: No acute cardiopulmonary process. Location: [facility] at 1437 Reported and signed by: Nikko Langford MD CC: Fred Rider MD; Cristofer Valentin MD Technologist: MOISES JUNG RT(R),CT Trnscrpt Data: 04/22/2021 (1437) [id number] Orig Print D/T: S: 04/22/2021 (1441) PAGE 1 Signed [id number] 14:17:00 Test Item Value Reference Range Interpretation Comments D-DIMER (test code = DDIMER) < 100 ng/ml < 600 BASIC METABOLIC [id number] 14:12:00 Test Item Value Reference Range Interpretation Comments SODIUM (test code = 144 mmol/L 135-148 N NA) POTASSIUM (test code 3.6 mmol/L 3.5-5.1 N = K) CHLORIDE (test code = 106 mmol/L 101-109 N CL) CARBON DIOXIDE (test 27.1 mmol/L 21-32 N code = CO2) ANION GAP (test code 15 mmol/L 10-20 N = GAP) GLUCOSE (test code = 115 mg/dL 74-106 H GLU) BLOOD UREA NITROGEN 12 mg/dL 3-21 N (test code = BUN) GLOMERULAR FILTRATION > 60 mL/min See_Comment Estima tristan GFR by RATE (test code = using King fied MDRD GFR) formula.Chronic kidney disease is defined as eith er kidney damageor GFR <60 mL/min/1.73 m2 for >3 months. [Automated mess age] The system [employer] generated this result transmitted ref erence range: >=60. Th e reference range was not used to int erpret this result as normal/abnormal . CREATININE (test code 0.65 mg/dL 0.55-1.3 N = CREAT) BUN/CREATININE RATIO 18.5 10-20 N (test code = BUN/CREA) CALCIUM (test code = 8.0 mg/dL 8.4-10.2 L CA) HEPATIC FUNCTION [id number] 14:12:00 Test Item Value Reference Range Interpretation Comments TOTAL PROTEIN (test 7.2 g/dL 6.5-8.4 N code = PROT) ALBUMIN (test code = 3.4 g/dL 3.4-4.8 N ALB) GLOBULIN (test code = 3.8 G/DL 1-10 N GLOB) ALBUMIN/GLOBULIN RATIO 0.9 RATIO 0.75-1.50 N (test code = A/G) BILIRUBIN TOTAL (test 0.30 mg/dL 0.0-1.0 N code = BILT) BILIRUBIN DIRECT (test 0.10 mg/dL 0.0-0.30 N code = BILD) SGOT/AST (test code = 12 U/L 6-32 N AST) SGPT/ALT (test code = 24 U/L 12-78 N Note: Change in ALT) REFERENCE RANGE due to new reagent method. ALKALINE PHOSPHATASE 99 U/L 38-126 N TOTAL (test code = ALKP) [id number] 14:12:00 Test Item Value Reference Range Interpretation Comments LIPASE (test code = LIP) 124 U/L 128-270 L HCG SERUM [id number] 14:12:00 Test Item Value Reference Range Interpretation Comments HCG SERUM QUAL (test NEGATIVE NEGATIVE This HC GQL test is NOT code = HCGQL) applicable for MALE patients.Check with nurse about probable order error.If Tumor Marker Test needed, nu rse should order test "HCG TU"(Test #550.30109)---- - [id number] 14:12:00 Test Item Value Reference Range Interpretation Comments TROPONIN-I (test code = TROPI) <0.015 ng/mL 0.00-0.056 N COVID 19 INHOUSE [id number] 14:12:00 Test Item Value Reference Range Interpretation Comments COVID 19 INHOUSE AG (test code = NEGATIVE NEGATIVE [id number]) B-TYPE NATRIURETIC [id number] 14:10:00 Test Item Value Reference Range Interpretation Comments B-TYPE NATRIURETIC PEPTIDE (test 14.6 pg/mL 0-100 N code = BNP) BASIC METABOLIC [id number] 14:04:00 Test Item Value Reference Range Interpretation Comments SODIUM (test code = NA) mmol/L 135-148 POTASSIUM (test code = mmol/L 3.5-5.1 K) CHLORIDE (test code = mmol/L 101-109 CL) CARBON DIOXIDE (test mmol/L 21-32 code = CO2) ANION GAP (test code = mmol/L 10-20 GAP) GLUCOSE (test code = mg/dL 74-106 GLU) BLOOD UREA NITROGEN mg/dL 3-21 (test code = BUN) GLOMERULAR FILTRATION mL/min See_Comment [Auto mated message] RATE (test code = GFR) The s [employer] which generated this result transmitted ref erence range: >=60. Th e reference range was not used to interpr et this result as normal/abnormal . CREATININE (test code = mg/dL 0.55-1.3 CREAT) BUN/CREATININE RATIO 10-20 (test code = BUN/CREA) CALCIUM (test code = mg/dL 8.4-10.2 CA) HEPATIC FUNCTION [id number] 14:04:00 Test Item Value Reference Range Interpretation Comments TOTAL PROTEIN (test code = PROT) gram/dL 6.4-8.2 ALBUMIN (test code = ALB) g/dL 3.4-5.0 GLOBULIN (test code = GLOB) g/dL 2.7-4.2 ALBUMIN/GLOBULIN RATIO (test code = 0.75-1.50 A/G) BILIRUBIN TOTAL (test code = BILT) mg/dL 0.2-1.2 BILIRUBIN DIRECT (test code = BILD) mg/dL 0.0-0.20 SGOT/AST (test code = AST) IUnit/L 15-37 SGPT/ALT (test code = ALT) U/L 10-69 ALKALINE PHOSPHATASE TOTAL (test IUnit/L 45-117 code = ALKP) [id number] 14:04:00 Test Item Value Reference Range Interpretation Comments LIPASE (test code = LIP) Unit/L 144-286 HCG SERUM [id number] 14:04:00 Test Item Value Reference Range Interpretation Comments HCG SERUM QUAL (test NEGATIVE NEGATIVE This HC GQL test is NOT code = HCGQL) applicable for MALE patients.Check with nurse about probable order error.If Tumor Marker Test needed, nu rse should order test "HCG TU"(Test #550.25583)---- - [id number] 14:04:00 Test Item Value Reference Range Interpretation Comments TROPONIN-I (test code = TROPI) pg/mL 0-45 BASIC METABOLIC [id number] 14:04:00 Test Item Value Reference Range Interpretation Comments SODIUM (test code = 144 mmol/L 135-148 N NA) POTASSIUM (test code 3.6 mmol/L 3.5-5.1 N = K) CHLORIDE (test code = 106 mmol/L 101-109 N CL) CARBON DIOXIDE (test 27.1 mmol/L 21-32 N code = CO2) ANION GAP (test code 15 mmol/L 10-20 N = GAP) GLUCOSE (test code = 115 mg/dL 74-106 H GLU) BLOOD UREA NITROGEN 12 mg/dL 3-21 N (test code = BUN) GLOMERULAR FILTRATION > 60 mL/min See_Comment Estima tristan GFR by RATE (test code = using King fied MDRD GFR) formula.Chronic kidney disease is defined as eith er kidney damageor GFR <60 mL/min/1.73 m2 for >3 months. [Automated mess age] The system [employer] generated this result transmitted ref erence range: >=60. Th e reference range was not used to int erpret this result as normal/abnormal . CREATININE (test code 0.65 mg/dL 0.55-1.3 N = CREAT) BUN/CREATININE RATIO 18.5 10-20 N (test code = BUN/CREA) CALCIUM (test code = 8.0 mg/dL 8.4-10.2 L CA) HEPATIC FUNCTION [id number] 14:04:00 Test Item Value Reference Range Interpretation Comments TOTAL PROTEIN (test code = PROT) gram/dL 6.4-8.2 ALBUMIN (test code = ALB) g/dL 3.4-5.0 GLOBULIN (test code = GLOB) g/dL 2.7-4.2 ALBUMIN/GLOBULIN RATIO (test code = 0.75-1.50 A/G) BILIRUBIN TOTAL (test code = BILT) mg/dL 0.2-1.2 BILIRUBIN DIRECT (test code = BILD) mg/dL 0.0-0.20 SGOT/AST (test code = AST) IUnit/L 15-37 SGPT/ALT (test code = ALT) U/L 10-69 ALKALINE PHOSPHATASE TOTAL (test IUnit/L 45-117 code = ALKP) [id number] 14:04:00 Test Item Value Reference Range Interpretation Comments LIPASE (test code = LIP) Unit/L 144-286 HCG SERUM [id number] 14:04:00 Test Item Value Reference Range Interpretation Comments HCG SERUM QUAL (test NEGATIVE NEGATIVE This HC GQL test is NOT code = HCGQL) applicable for MALE patients.Check with nurse about probable order error.If Tumor Marker Test needed, nu rse should order test "HCG TU"(Test #550.41420)---- - [id number] 14:04:00 Test Item Value Reference Range Interpretation Comments TROPONIN-I (test code = TROPI) pg/mL 0-45 CBC W/O [id number] 14:04:00 Test Item Value Reference Range Interpretation Comments WHITE BLOOD CELL (test code = 8.1 K/mm3 4.5-12.5 N WBC) RED BLOOD CELL (test code = 3.85 mill/mm3 3.7-5.2 N RBC) HEMOGLOBIN (test code = HGB) 12.0 gram/dL 11.5-15.5 N HEMATOCRIT (test code = HCT) 37.4 % 36.0-46.0 N MEAN CELL VOLUME (test code = 97.1 fL 80-98 N MCV) MEAN CELL HGB (test code = MCH) 31.2 picogram 27.0-33.0 N MEAN CELL HGB CONCETRATION 32.1 gram/dL 33.0-36.0 L (test code = MCHC) RED CELL DISTRIBUTION WIDTH 13.6 % 11.6-16.2 N (test code = RDW) RED CELL DISTRIBUTION WIDTH SD 48.8 fL 37.0-51.0 N (test code = RDW-SD) PLATELET COUNT (test code = 314 K/mm3 150-450 N PLT) MEAN PLATELET VOLUME (test code 10.4 fL 6.7-11.0 N = MPV) URINALYSIS [id number] 20:19:00 Test Item Value Reference Range Interpretation Comments UA COLOR (test code = YELLOW YELLOW COLU) UA APPEARANCE (test code HAZY CLEAR A = APPU) UA GLUCOSE DIPSTICK (test norm mg/dL NEGATIVE code = DGLUU) UA BILIRUBIN DIPSTICK NEGATIVE mg/dL NEGATIVE (test code = BILU) UA KETONE DIPSTICK (test neg mg/dL NEGATIVE code = KETU) UA SPECIFIC GRAVITY (test 1.015 1.001-1.035 code = SGU) UA BLOOD DIPSTICK (test 250 (4+) Bill/uL NEGATIVE A code = CARMEN) UA PH DIPSTICK (test code 6.0 5.0-8.0 = MARCIAL) UA PROTEIN DIPSTICK (test 30 (1+) mg/dL Neg-15 A code = PROU) UA UROBILINIOGEN DIPSTICK 1 mg/dL 0.0-0.2 A (test code = URO) UA NITRITE DIPSTICK (test NEGATIVE NEGATIVE code = ROBERT) UA LEUKOCYTE ESTERASE 25 Darlyn/uL (Trace) uL NEGATIVE A DIPSTICK (test code = LEUU) UA WBC (test code = WBCU) 0-5 per HPF 0-5 UA RBC (test code = RBCU) 0-3 per HPF 0-5 UA EPITHELIAL CELLS (test Few (2-5/hpf) per Few code = EPIU) HPF UA BACTERIA (test code = TRACE per HPF NONE BACU) Urine Source? Clean CatchUR HCG [id number] 20:19:00 Test Item Value Reference Range Interpretation Comments UR HCG QUAL (test NEGATIVE This HCGQL test is NOT code = HCGQLU) applicable fo r MALE patients.Check with nurse about probable order error.If Tumor Marker Test needed, nu rse should order test "HCG TU"(Test #550.63265)---- - Urine Source? Clean CatchCOVID 19 INHOUSE [id number] 20:19:00 Test Item Value Reference Range Interpretation Comments COVID 19 INHOUSE AG (test code = NEGATIVE NEGATIVE [id number]) - US ABDOMEN [id number] 20:18:00 [facility] ([facility])Name: RAMA EDGAR : 1990 Sex: F Name: RAMA EDGAR [facility] : 1990 Age/S: 31 / F [address] [facility] Unit #: [id number] Loc: Natasha Gray [address] Phys: Jorge Luis Valencia MD Acct: [id number] Dis Date: Status: PRE ER PHONE #: [phone] Exam Date: 04/15/20212001 FAX #: [phone] Reason: Abdominal Pain EXAMS: CPT CODE: [id number] US ABDOMEN LTD [id number] REASON FOR EXAM: Abdominal Pain EXAM ORDER DATE: 04/15/2021 7:26 PM Attending M.D.: Jorge Luis Valencia MD PROCEDURE: - US ABDOMEN LTDTechnique: Grayscale and color Doppler images of the right-upper quadrant of the abdomen. Comparison: None FINDINGS: Aorta and IVC: Patent and grossly normal in caliber. Liver: Size: 14.7 cm craniocaudally Parenchyma and contour: Smooth contour. Normal echogenicity. Cysts and/or masses: None. Intrahepatic bile ducts: No intrahepatic biliary ductal dilation Common bile duct: 3.0 mm in diameter. No echogenic filling defects in visualized duct. Gallbladder: Stones/sludge: No intraluminal stones or sludge. Wall: 1.4 mm in thickness. No discontinuity. No polyps. No pericholecystic fluid. No hyperemia. Sonographic Hameed's sign: Negative Portal vein: Portal vein caliber is within normal limits. Portalvein is patent with hepatopetal flow. Pancreas: Incompletely visualized. However the visualized portions are grossly within normal limits. Right kidney: parenchyma echogenicity: Normal echogenicity size: 10.0 x 3.9 x 4.4 cm stones: none cysts/masses: none PAGE 1 Signed Report (CONTINUED) Name: RAMA EDGAR [facility] : 1990 Age/S: 31 / F [address] [facility] Unit #:[id number] Loc: Natasha Gray [address] Phys: Jorge Luis Valencia MD Acct: [id number] Dis Date: Status: PRE ER PHONE #: [phone] Exam Date: 04/15/20212001 FAX #: [phone] Reason: Abdominal Pain EXAMS: CPT CODE: [id number] US ABDOMEN LTD [id number] (Continued) hydronephrosis: none Ascites/pleural effusions: None IMPRESSION: Sonographically unremarkable abdomen. Location: [facility] at 2018 Reported and signed by: Nikko Langford MD CC: Brad Valencia MD Technologist: Justine Lamas [facility] Trnscb Date/Time: 04/15/2021 (2017) [email or web address] Orig Print D/T: S: 04/15/2021 (2020) Probe: PAGE 2 Signed ReportURINALYSIS [id number] 20:10:00 Test Item Value Reference Range Interpretation Comments UA COLOR (test code = YELLOW YELLOW COLU) UA APPEARANCE (test code HAZY CLEAR A = APPU) UA GLUCOSE DIPSTICK (test norm mg/dL NEGATIVE code = DGLUU) UA BILIRUBIN DIPSTICK NEGATIVE mg/dL NEGATIVE (test code = BILU) UA KETONE DIPSTICK (test neg mg/dL NEGATIVE code = KETU) UA SPECIFIC GRAVITY (test 1.015 1.001-1.035 code = SGU) UA BLOOD DIPSTICK (test 250 (4+) Bill/uL NEGATIVE A code = CARMEN) UA PH DIPSTICK (test code 6.0 5.0-8.0 = MARCIAL) UA PROTEIN DIPSTICK (test 30 (1+) mg/dL Neg-15 A code = PROU) UA UROBILINIOGEN DIPSTICK 1 mg/dL 0.0-0.2 A (test code = URO) UA NITRITE DIPSTICK (test NEGATIVE NEGATIVE code = ROBERT) UA LEUKOCYTE ESTERASE 25 Darlyn/uL (Trace) uL NEGATIVE A DIPSTICK (test code = LEUU) UA WBC (test code = WBCU) per HPF 0-5 UA RBC (test code = RBCU) per HPF 0-5 UA EPITHELIAL CELLS (test per HPF Few code = EPIU) UA BACTERIA (test code = per HPF NONE BACU) Urine Source? Clean CatchUR HCG [id number] 20:10:00 Test Item Value Reference Range Interpretation Comments UR HCG QUAL (test code = HCGQLU) Urine Source? Clean CatchCOMPREHENSIVE METABOLIC [id number] 20:04:00 Test Item Value Reference Range Interpretation Comments SODIUM (test code = 137 mmol/L 136-145 N NA) POTASSIUM (test code 3.4 mmol/L 3.5-5.1 L = K) CHLORIDE (test code = 104 mmol/L 101-109 N CL) CARBON DIOXIDE (test 25.6 mmol/L 21-32 N code = CO2) ANION GAP (test code 11 mmol/L 10-20 N = GAP) GLUCOSE (test code = 89 mg/dL 74-106 N GLU) BLOOD UREA NITROGEN 11 mg/dL 3-21 N (test code = BUN) GLOMERULAR FILTRATION > 60 mL/min See_Comment Estima tristan GFR by RATE (test code = using King fied MDRD GFR) formula.Chronic kidney disease is defined as eith er kidney damageor GFR <60 mL/min/1.73 m2 for >3 months. [Automated mess age] The system [employer] generated this result transmitted ref erence range: >=60. Th e reference range was not used to int erpret this result as normal/abnormal . CREATININE (test code 0.53 mg/dL 0.55-1.3 L = CREAT) BUN/CREATININE RATIO 20.8 10-20 H (test code = BUN/CREA) TOTAL PROTEIN (test 7.2 g/dL 6.5-8.4 N code = PROT) ALBUMIN (test code = 3.6 g/dL 3.4-4.8 N ALB) GLOBULIN (test code = 3.6 G/DL 1-10 N GLOB) ALBUMIN/GLOBULIN 1.00 RATIO 0.75-1.50 N RATIO (test code = A/G) CALCIUM (test code = 7.3 mg/dL 8.4-10.2 L CA) BILIRUBIN TOTAL (test 0.30 mg/dL 0.0-1.0 N code = BILT) SGOT/AST (test code = 15 U/L 6-32 N AST) SGPT/ALT (test code = 18 U/L 12-78 N Note: Change in ALT) REFERENCE RANGE due to new reagent method. ALKALINE PHOSPHATASE 96 U/L 38-126 N TOTAL (test code = ALKP) [id number] 20:04:00 Test Item Value Reference Range Interpretation Comments LIPASE (test code = LIP) 116 U/L 128-270 L COMPREHENSIVE METABOLIC [id number] 19:58:00 Test Item Value Reference Range Interpretation Comments SODIUM (test code = 137 mmol/L 136-145 N NA) POTASSIUM (test code 3.4 mmol/L 3.5-5.1 L = K) CHLORIDE (test code = 104 mmol/L 101-109 N CL) CARBON DIOXIDE (test 25.6 mmol/L 21-32 N code = CO2) ANION GAP (test code 11 mmol/L 10-20 N = GAP) GLUCOSE (test code = 89 mg/dL 74-106 N GLU) BLOOD UREA NITROGEN 11 mg/dL 3-21 N (test code = BUN) GLOMERULAR FILTRATION > 60 mL/min See_Comment Estima tristna GFR by RATE (test code = using King fied MDRD GFR) formula.Chronic kidney disease is defined as eith er kidney damageor GFR <60 mL/min/1.73 m2 for >3 months. [Automated mess age] The system [employer] generated this result transmitted ref erence range: >=60. Th e reference range was not used to int erpret this result as normal/abnormal . CREATININE (test code 0.53 mg/dL 0.55-1.3 L = CREAT) BUN/CREATININE RATIO 20.8 10-20 H (test code = BUN/CREA) TOTAL PROTEIN (test gram/dL 6.4-8.2 code = PROT) ALBUMIN (test code = g/dL 3.4-5.0 ALB) GLOBULIN (test code = g/dL 2.7-4.2 GLOB) ALBUMIN/GLOBULIN 0.75-1.50 RATIO (test code = A/G) CALCIUM (test code = 7.3 mg/dL 8.4-10.2 L CA) BILIRUBIN TOTAL (test mg/dL 0.2-1.2 code = BILT) SGOT/AST (test code = IUnit/L 15-37 AST) SGPT/ALT (test code = U/L 10-69 ALT) ALKALINE PHOSPHATASE IUnit/L 45-117 TOTAL (test code = ALKP) [id number] 19:58:00 Test Item Value Reference Range Interpretation Comments LIPASE (test code = LIP) Unit/L 144-286 CBC W/AUTO [id number] 19:48:00 Test Item Value Reference Range Interpretation Comments WHITE BLOOD CELL (test code = 9.9 K/mm3 4.5-12.5 N WBC) RED BLOOD CELL (test code = 3.81 mill/mm3 3.7-5.2 N RBC) HEMOGLOBIN (test code = HGB) 11.8 gram/dL 11.5-15.5 N HEMATOCRIT (test code = HCT) 37.7 % 36.0-46.0 N MEAN CELL VOLUME (test code = 99.0 fL 80-98 H MCV) MEAN CELL HGB (test code = MCH) 31.0 picogram 27.0-33.0 N MEAN CELL HGB CONCETRATION 31.3 gram/dL 33.0-36.0 L (test code = MCHC) RED CELL DISTRIBUTION WIDTH 13.6 % 11.6-16.2 N (test code = RDW) RED CELL DISTRIBUTION WIDTH SD 50.0 fL 37.0-51.0 N (test code = RDW-SD) PLATELET COUNT (test code = 317 K/mm3 150-450 N PLT) MEAN PLATELET VOLUME (test code 10.2 fL 6.7-11.0 N = MPV) NEUTROPHIL % (test code = NT%) 67.1 % 39.0-69.0 N LYMPHOCYTE % (test code = LY%) 25.5 % 25.0-55.0 N MONOCYTE % (test code = MO%) 5.9 % 0.0-10.0 N EOSINOPHIL % (test code = EO%) 1.1 % 0.0-5.0 N BASOPHIL % (test code = BA%) 0.4 % 0.0-1.0 N NEUTROPHIL # (test code = NT#) 6.65 K/mm3 1.8-7.7 N LYMPHOCYTE # (test code = LY#) 2.52 K/mm3 1.0-5.0 N MONOCYTE # (test code = MO#) 0.58 K/mm3 0-0.8 N EOSINOPHIL # (test code = EO#) 0.11 K/mm3 0.0-0.5 N BASOPHIL # (test code = BA#) 0.04 K/mm3 0.0-0.2 N MANUAL DIFF REQUIRED (test code NO = MDIFF) Covid 19 InHouse [id number] 11:23:00 Test Item Value Reference Range Interpretation Comments Covid 19 Negative Negative A negative resu lt does not InHouse NTX preclude the SA RS-COV-2 (test code = viralinfection and should not be [id number]) used as the so le basis forpatient neto gement decisions. Negative result s must becombined with clinical o bservations, patient history , andepidemiologi no information. Viral levels in clinicalsamples below the detec tion limit of the assay could isa d tonegative results. This t est was performed using the [employer] SmartTM COVID-19 PCRassay. This test was developed and i ts performancechar acteristics were determined by Hilary valencia [facility]. Thi s test has notbeen FDA heriberto ared or approved. This test is au thorized by theFDA under Em ergency Use Authorization(E UA). The EUA willremain in e ffect unless it is terminated o r revoked by FDA . Testing damian eters have not been validated for screeningasympt omatic patients. This test was v alidated according to th e FDA's guidancedocumen t "Policy for Diagnostics claude ting in LaboratoriesCer tified to Perform High Complexity Testing under CLIA". Is the patient going to be discharged home? YIs the patient going to be discharged home? YFirst test? YesEmployed in Healthcare? NoSymptomatic as defined by CDC? YesDate of Symptom Onset: [id number] due to COVID? NoIn ICU due to COVID? NoResident in a congregate care setting? No? NoAg e at collection: YSTREPTOCOCCUS PCR [id number] 03:45:00 Test Item Value Reference Range Interpretation Comments STREPTOCOCCUS DYSGALACTIAE NEGATIVE FOR G/C NEGATIVE (test code = STREPGC) STREPA MOLECULAR (test NEGATIVE FOR GRP A NEGATIVE code = STREPAMOL)
[2022-06-10] MEDS ORDERED: NA CHLORIDE 0.9% 1,000 ML ONE (23:53)
[2022-06-10] MEDS ORDERED: BUPIVACAINE 0.5% PF 10 ML VIAL ONE (23:53)
[2022-06-10] MEDS ORDERED: LIDOCAINE 1% MPF 5 ML VIAL ONE (23:53)
[2022-06-10 23:59] LABS: Absolute Lymphocytes (CBC) 3.5 K/uL (0.7-4.9); Lymphocytes % 32.7 % (15.3-44.8); MCV 93.2 fL (80-100); MPV 8.6 fL (7.6-11.3); RBC Red Blood Cell Count 3.87 M/uL (3.86-4.86)
[2022-06-11 00:14] LABS: Potassium 3.8 mmol/L (3.5-5.1)
[2022-06-11 00:25] LABS: Urine Blood Negative (Negative); Urine Glucose Negative (Negative); Urine Protein Negative (Negative); Urine Specific Gravity 1.025 (1.005-1.030)
[2022-06-11 00:31] LABS: Urine Specific Gravity/Preg 1.025 (1.005-1.030)
[2022-06-11] MEDS ORDERED: CLINDAMYCIN 900MG/D5W 900 MG/50 ML IVPB IV ONE (00:43)
[2022-06-11] MEDS ORDERED: LORAZEPAM 1 MG TABLET ONE (00:43)
[2022-06-11] MEDS ORDERED: DOXYCYCLINE 100 MG CAP PO ONE (00:54)
--- NOTE | 2022-06-11 00:57 | ER ---
Nurse's Notes [facility] Name: Anastasia Edgar Age: 32 yrs Sex: Female : 1990 Arrival Date: 06/10/2022 Time: 21:31 Bed 11 Private MD: Diagnosis: Cutaneous abscess of neck Presentation: 06/10 21:56 Chief complaint: Patient states: Abscess to back of head/neck. Pt c/o pain and warm to ld1 touch. 21:56 Method Of Arrival: Ambulatory ld1 21:57 Coronavirus screen: At this time, the client does not indicate any symptoms associated ld1 with coronavirus-19. Ebola Screen: No symptoms or risks identified at this time. Initial Sepsis Screen: Does the patient meet any 2 criteria? No. Patient's initial sepsis screen is negative. Does the patient have a suspected source of infection? No. Patient's initial sepsis screen is negative. Risk Assessment: Do you want to hurt yourself or someone else? Patient reports no desire to harm self or others. Onset of symptoms was June 10, 2022. 21:57 Acuity: MOISES 4 ld1 Triage Assessment: 21:58 Bite description: bite sustained to base of the skull by an unknown animal, animal ld1 information: vaccination(s) is unknown. General: Appears in no apparent distress. comfortable, Behavior is calm, cooperative, appropriate for age. Pain: Complains of pain in base of the skull Pain does not radiate. Pain currently is 9 out of 10 on a pain scale. Quality of pain is described as throbbing. EENT: No signs and/or symptoms were reported regarding the EENT system. Neuro: Level of Consciousness is awake, alert, obeys commands, Oriented to person, place, time, situation. Cardiovascular: Capillary refill < 3 seconds Patient's skin is warm and dry. Respiratory: Airway is patent Respiratory effort is even, unlabored. GI: Abdomen is round non-distended. : No signs and/or symptoms were reported regarding the genitourinary system. Derm: Abscess located on base of the skull. Musculoskeletal: No signs and/or symptoms reported regarding the musculoskeletal system. MUSIC CRITIC: 23:16 LMP 06/01/2022 em6 Historical: - Allergies: 21:58 Bactrim; ld1 21:58 Sulfa (Sulfonamide Antibiotics); ld1 - PMHx: 21:58 Anxiety; cervical CA; chiari malformation; Depression; Migraines; ld1 - PSHx: 21:58 None; ld1 - Immunization history:: Adult Immunizations up to date, Client reports receiving the 2nd dose of the Covid vaccine. - Social history:: Smoking status: Patient reports the use of cigarette tobacco products, smokes one-half pack cigarettes per day, Patient uses alcohol, occasionally. Screenin:24 Abuse screen: Denies threats or abuse. Nutritional screening: No deficits noted. em6 Tuberculosis screening: No symptoms or risk factors identified. Fall Risk Total Perez Fall Scale indicates No Risk (0-24 pts). Assessment: 22:23 Reassessment: see triage assessment. em6 22:23 Derm: Skin is intact, Skin is swollen bump in the right back neck. dime size. em6 23:20 Reassessment: No changes from previously documented assessment. Patient and/or family em6 updated on plan of care and expected duration. Pain level reassessed. Patient is alert, oriented x 3, equal unlabored respirations, skin warm/dry/pink. 06/11 01:07 Reassessment: waiting for medication to finish to discharge patient. em6 Vital Signs: 06/10 21:57 BP 137 / 91; Pulse 105; Resp 18; Temp 98.0(TE); Pulse Ox 100% on R/A; Weight 68.04 kg; ld1 Height 4 ft. 11 in. (149.86 cm); Pain 10/10; 23:19 BP 103 / 67; Pulse 97; Resp 16; Pulse Ox 100% on R/A; em6 21:57 Body Mass Index 30.30 (68.04 kg, 149.86 cm) ld1 ED Course: 21:31 Patient arrived in ED. bp1 21:58 Triage completed. ld1 21:58 Arm band placed on right wrist. ld1 22:23 Maggie Ash, RN is Primary Nurse. em6 22:24 Bed in low position. Call light in reach. Side rails up X 1. Pulse ox on. NIBP on. Warm em6 blanket given. 22:35 Salas Mooney PA is PHCP. cp 22:35 Arti Cook MD is Attending Physician. cp 23:14 Inserted saline lock: 20 gauge in right antecubital area, using aseptic technique. em6 Blood collected. 23:48 BMP Sent. em6 23:48 CBC with Diff Sent. em6 06/11 00:18 Assist provider with I \T\ D: of an abscess on Set up I\T\D tray. Performed by Salas Mooney em 6 RAYRAY Wound packed. iodoform gauze, Dressing with 4X4s, tape Patient tolerated well. 02:00 IV discontinued, intact, bleeding controlled, No redness/swelling at site. kl Administered Medications: 06/10 23:50 Drug: NS 0.9% 1000 ml Route: IV; Rate: 1 bolus; Site: right antecubital; em6 06/11 00:17 Not Given (Patient Refused): fentaNYL (PF) 25 mcg IVP once em6 00:17 Drug: Lidocaine (1 %) 10 ml {Note: administered by chris yang .} Volume: 20 ml; Route: em6 Infiltration; 01:02 Follow up: Response: No adverse reaction em6 00:17 Drug: Marcaine (bupivacaine) (0.5 %) 10 ml {Note: administered by chris yang .} Volume: em6 10 ml; Route: Infiltration; 01:02 Follow up: Response: No adverse reaction em6 00:51 Drug: Clindamycin 900 mg Route: IVPB; Infused Over: 30 mins; Site: right antecubital; em6 01:12 Follow up: Response: No adverse reaction; IV Status: Completed infusion; IV Intake: [id number] 00:51 Drug: Ativan (LORazepam) 1 mg Route: PO; em6 01:56 Follow up: Response: No adverse reaction em6 01:01 Drug: Doxycycline 200 mg Route: PO; em6 01:56 Follow up: Response: No adverse reaction em6 Medication: 02:01 VIS not applicable for this client. kl Intake: 01:12 IV: 50ml; Total: 50ml. em6 Outcome: 00:56 Discharge ordered by . amrit 02:01 Discharged to home ambulatory. kl 02:01 Condition: good 02:01 Discharge instructions given to patient, Instructed on discharge instructions, follow up and referral plans. medication usage, Demonstrated understanding of instructions, follow-up care, medications, wound care, Prescriptions given X 3. 02:02 Patient left the ED. kl Signatures: Zaina Iverson RN RN Salas Sexton PA PA cp Paniauga, Brittany bp1 Dibbern, Lauren, RN RN ld1 Maggie Ash, RN RN em6
--- NOTE | 2022-06-11 00:58 | EDPHYS ---
Physician Documentation [facility] Name: Anastasia Edgar Age: 32 yrs Sex: Female : 1990 Arrival Date: 06/10/2022 Time: 21:31 Bed 11 Private MD: ED Physician Arti Cook HPI: 06/11 00:00 This 32 yrs old Female presents to ER via Ambulatory with complaints of Insect cp Bite, Neck Pain, <24hrs Old. 00:00 The patient or guardian complains of pain, that is acute, swelling, tenderness. The cp symptoms are located on the right side of posterior neck. 00:00 Onset: The symptoms/episode began/occurred over past several days. Context: The neck cp injury/problem resulted from possible insect bite. 00:00 Associated signs and symptoms: Pertinent negatives: chills, fever, numbness, vomiting, cp weakness. The pain does not radiate. Severity of symptoms: in the emergency department the symptoms are unchanged, despite home interventions. 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 - Social history:: Smoking status: Patient reports the use of cigarette tobacco products, smokes one-half pack cigarettes per day, Patient uses alcohol, occasionally. ROS: 06/11 00:05 Neck: Positive for pain with movement, pain at rest, swelling, tenderness, of the right cp side posterior neck. 00:05 Eyes: Negative for injury, pain, redness, and discharge. cp 00:05 Constitutional: Negative for body aches, chills, fever. 00:05 Respiratory: Negative for cough, shortness of breath, wheezing. 00:05 Abdomen/GI: Negative for abdominal pain, vomiting, diarrhea, constipation. 00:05 Neuro: Negative for altered mental status, headache, weakness. 00:05 All other systems are negative. Exam: 00:10 Constitutional: The patient appears in no acute distress, alert, awake, non-toxic, well cp developed, well nourished, uncomfortable. 00:10 Head/Face: Normocephalic, atraumatic. cp 00:10 Eyes: Periorbital structures: appear normal, Conjunctiva: normal, no exudate, no injection, Sclera: no appreciated abnormality, Lids and lashes: appear normal, bilaterally. 00:10 ENT: External ear(s): are unremarkable, Nose: is normal, Mouth: Lips: moist, Oral mucosa: moist, Posterior pharynx: is normal, airway is patent. 00:10 Neck: External neck: abscess, that is small, of the right occiput area of neck, with surrounding cellulitis, ROM/movement: pain, that is moderate, with any movement, limited range of motion, is not appreciated, nuchal rigidity, is not appreciated. 00:10 Chest/axilla: Inspection: normal. 00:10 Cardiovascular: Rate: tachycardic, Rhythm: regular. 00:10 Respiratory: the patient does not display signs of respiratory distress, Respirations: normal, no use of accessory muscles, no retractions, labored breathing, is not present. 00:10 Abdomen/GI: Exam negative for discomfort, distension, guarding, Inspection: abdomen appears normal. 00:10 Neuro: Orientation: to person, place \T\ time. Mentation: is normal, Motor: moves all fours, strength is normal, Sensation: is normal. Vital Signs: 06/10 21:57 BP 137 / 91; Pulse 105; Resp 18; Temp 98.0(TE); Pulse Ox 100% on R/A; Weight 68.04 kg; ld1 Height 4 ft. 11 in. (149.86 cm); Pain 06/01; 23:19 BP 103 / 67; Pulse 97; Resp 16; Pulse Ox 100% on R/A; em6 21:57 Body Mass Index 30.30 (68.04 kg, 149.86 cm) ld1 Procedures: 06/11 00:55 I \T\ D: Incision and drainage was performed for an abscess of the right occipital area cp of neck Prepped with Betadine, Anesthetized with 4 ccs of mixture of 1% lidocaine w/o epi and 0.5% marcaine. Incised with #11 blade. Drained small amount purulent fluid. Packed with iodoform gauze, Dressing: sterile 4x4 gauze, the patient tolerated the procedure well. MDM: 06/10 22:38 Patient medically screened. cp 06/11 00:55 Data reviewed: vital signs, nurses notes, lab test result(s). cp 00:55 Differential diagnosis: abscess, cellulitis, sepsis. Counseling: I had a detailed cp discussion with the patient and/or guardian regarding: the historical points, exam findings, and any diagnostic results supporting the discharge/admit diagnosis, lab results, the need for outpatient follow up, a family practitioner, to return to the emergency department if symptoms worsen or persist or if there are any questions or concerns that arise at home. Response to treatment: the patient's symptoms have mildly improved after treatment, and as a result, I will discharge patient. 06/10 23:43 Order name: CBC with Diff; Complete Time: 00:19 cp 06/10 23:43 Order name: BMP; Complete Time: 00:19 cp 06/11 00:25 Order name: Urine --Ancillary (enter results) mw2 06/11 00:26 Order name: Urine Dipstick-Ancillary EDMS 06/10 23:43 Order name: Urine Test (obtain specimen); Complete Time: 00:24 cp 06/10 23:43 Order name: IV; Complete Time: 23:44 cp 06/10 23:43 Order name: I\T\D Setup; Complete Time: 00:17 cp Administered Medications: 06/10 23:50 Drug: NS 0.9% 1000 ml Route: IV; Rate: 1 bolus; Site: right antecubital; em6 06/11 00:17 Not Given (Patient Refused): fentaNYL (PF) 25 mcg IVP once em6 00:17 Drug: Lidocaine (1 %) 10 ml {Note: administered by page salas .} Volume: 20 ml; Route: em6 Infiltration; 01:02 Follow up: Response: No adverse reaction em6 00:17 Drug: Marcaine (bupivacaine) (0.5 %) 10 ml {Note: administered by page salas .} Volume: em6 10 ml; Route: Infiltration; 01:02 Follow up: Response: No adverse reaction em6 00:51 Drug: Clindamycin 900 mg Route: IVPB; Infused Over: 30 mins; Site: right antecubital; em6 01:12 Follow up: Response: No adverse reaction; IV Status: Completed infusion; IV Intake: [id number] 00:51 Drug: Ativan (LORazepam) 1 mg Route: PO; em6 01:56 Follow up: Response: No adverse reaction em6 01:01 Drug: Doxycycline 200 mg Route: PO; em6 01:56 Follow up: Response: No adverse reaction em6 Disposition Summary: 06/11/22 00:56 Discharge Ordered Location: Home cp Problem: new cp Symptoms: have improved cp Condition: Stable cp Diagnosis - Cutaneous abscess of neck cp Followup: cp - With: Private Physician - When: 2 - 3 days - Reason: Recheck today's complaints Discharge Instructions: - Discharge Summary Sheet cp - Skin Abscess cp - Incision and Drainage cp - Incision and Drainage, Care After cp Forms: - Medication Reconciliation Form cp - Thank You Letter cp - Antibiotic Education cp - Prescription Opioid Use cp Prescriptions: - Clindamycin HCl 300 mg Oral Capsule - take 1 capsule by ORAL route every 6 hours for 10 days; 40 capsule; Refills: 0, cp Product Selection Permitted - Ibuprofen 800 mg Oral Tablet - take 1 tablet by ORAL route every 8 hours As needed take with food; 30 tablet; cp Refills: 0, Product Selection Permitted - Doxycycline Hyclate 100 mg Oral Tablet - take 1 tablet by ORAL route every 12 hours; 20 tablet; Refills: 0, Product cp Selection Permitted Signatures: Dispatcher [employer] Salas Lundberg PA PA cp Miryam Bañuelos RN RN ld1 Maggie Ash RN RN em6
[2022-06-11 02:44] VITALS: TEMP 98; O2SAT 100
[2022-06-11 02:45] VITALS: BP 103/67
== END 2022-06-11 02:02 | disposition home or self-care (01) ==
LOC: ER 21:28
PROC: 0H94XZZ Drainage of Neck Skin, External Approach (ICD-10-PCS; principal; 2022-06-11)
DX: L02.11 Cutaneous abscess of neck (principal); F17.210 Nicotine dependence, cigarettes, uncomplicated; Z88.1 Allergy status to other antibiotic agents; Z88.2 Allergy status to sulfonamides
CPT/HCPCS: 96365; 85025; 80048; 36415; 81025; 81003; 99284; 10060; J2001; J7030

== ENCOUNTER → 2023-09-03 | Emergency (ER) | payer OTHER ==
--- OUTSIDE RECORDS SUMMARY | 2023-09-03 11:26 | XMS REPORT | Continuity of Care Document ---
Author Name Unknown Address [address] [facility] [address] [place] [address] [facility] Address [address] [facility] [address] [place] [address] Care Team Providers Care Jewelry Sales Representative Name Role Phone GC_GCBZW_Kadidawooda_S Attending Clinician UnavailBarby Mcwilliams Attending Clinician Unavailable Willa Lozano Attending Clinician Unavailable Diego Galvan Attending Clinician Unavailable Cristofer Valentin V Attending Clinician UnavailJr Hodges Attending Clinician UnavailCheko Morocho Attending Clinician Jorge Luis Chaves Attending Clinician Unavaila AWILDA Anthony Attending Clinician Unavailable Awilda Ledesma MD Attending Clinician Doctor Unassigned, [place] Attending Clinician U [facility], URGENT CARE Admitting Clinician Unavaila beatriz GC_GCBZW_Kadiyala_S Admitting Clinician Unavailbarbara henderson Physician, No Primary or Family Admitting Clinic matthew Unavailable Fred Rider Admitting Clinician Unavailchristian e Payers Payer Name Policy Type Policy Number Effective Date Expirati on Date Source [facility] [id number] 2018 00:00:00 Problems Condition Name Condition Details Condition Category Status Onset Date Resolution Date Last Treatment Date Treating Clinician Comments Source No known active problems No known active problems Disease [facility] Allergies, Adverse Reactions, Alerts Allergy Name Allergy Type Status Severity Reaction(s) Onset Date Inactive Date Treating Clinician Comments Source sulfamet hoxazole DA Active SV HIVES 2-21 00:00: 00 [facility] trimetho prim DA Active SV HIVES 0 2 00:00: 00 [facility] sulfamet hoxazole DA Active SV HIVES 2020-08 2- 00:00: 00 [facility] trimetho prim DA Active SV HIVES 2020-08 2 00:00: 00 [facility] sulfamet hoxazole DA Active SV 0 8-24 00:00: 00 [facility] trimetho prim DA Active SV 0 824 00:00: 00 [facility] sulfamet hoxazole DA Active SV HIVES 0 8-24 00:00: 00 [facility] trimetho prim DA Active SV HIVES 0 8-24 00:00: 00 [facility] No Known Allergie s DA Active U 1- 00:00: 00 [facility] No Known Allergie s DA Active U 1 00:00: 00 [facility] Sulfa (Sulfona mide Antibiot ics) Propensi ty to adverse reaction s Active Rash 2016-08 00:00: 00 [facility] SULFA (SULFONA MIDE ANTIBIOT ICS) Drug Class Active Rash 2016-08 00:00: 00 [facility] Social History Social Habit Start Date Stop Date Quantity Comments Source Exposure to SARS-CoV-2 (event) Not sure [facility] History of tobacco use Cigarette Smoker [facility] Cigarettes smoked current (pack per day) - Reported 2020-12-12 00:00:00 2020-12-12 00:00:00 [facility] Cigarette pack-years 2020-12-12 00:00:00 2020-12-12 00:00:00 [facility] Tobacco use and exposure 2020-12-12 00:00:00 2020-12-12 00:00:00 Never used [facility] Alcohol intake 2015-10-02 00:00:00 2015-10-02 00:00:00 [facility] Sex Ass[birth year] At 1990 00:00:00 1990 00:00:00 [facility] Smoking Status Start Date Stop Date Source Current every day smoker 2020-12-12 00:00:00 [facility] Ordered Medication Name Filled Medication Name Start Date Stop Date Current Medication? Ordering Clinician Indication Dosage Frequency Signature (SIG) Comments Components Source benzonatate 100 mg capsule 01-19 00:00: 00 Yes [id number] 100mg Take 1 capsule by mouth 3 (three) times daily as needed for Cough. [facility] benzonatate 100 mg capsule 01-19 00:00: 00 Yes [id number] 100mg Take 1 capsule by mouth 3 (three) times daily as needed for Cough. [facility] benzonatate 100 mg capsule 01-19 00:00: 00 Yes [id number] 100mg Take 1 capsule by mouth 3 (three) times daily as needed for Cough. [facility] benzonatate 100 mg capsule 01-19 00:00: 00 Yes [id number] 100mg Take 1 capsule by mouth 3 (three) times daily as needed for Cough. [facility] benzonatate 100 mg capsule 01-19 00:00: 00 Yes [id number] 100mg Take 1 capsule by mouth 3 (three) times daily as needed for Cough. [facility] benzonatate 100 mg capsule 01-19 00:00: 00 Yes [id number] 100mg Take 1 capsule by mouth 3 (three) times daily as needed for Cough. [facility] proMETHazin e 25 mg tablet 05-04 00:00: 00 Yes 25mg Take 1 tablet by mouth every 6 (six) hours as needed for Nausea and Vomiting (N/V). [facility] proMETHazin e 25 mg tablet 05-04 00:00: 00 Yes 25mg Take 1 tablet by mouth every 6 (six) hours as needed for Nausea and Vomiting (N/V). [facility] proMETHazin e 25 mg tablet 05-04 00:00: 00 Yes 25mg Take 1 tablet by mouth every 6 (six) hours as needed for Nausea and Vomiting (N/V). [facility] proMETHazin e 25 mg tablet 05-04 00:00: 00 Yes 25mg Take 1 tablet by mouth every 6 (six) hours as needed for Nausea and Vomiting (N/V). [facility] proMETHazin e 25 mg tablet 05-04 00:00: 00 Yes 25mg Take 1 tablet by mouth every 6 (six) hours as needed for Nausea and Vomiting (N/V). [facility] proMETHazin e 25 mg tablet 05-04 00:00: 00 Yes 25mg Take 1 tablet by mouth every 6 (six) hours as needed for Nausea and Vomiting (N/V). [facility] promethazin e-codeine 6.25-10 mg/5 mL syrup 2016-08 00:00: 00 Yes 5mL Take 5 mL by mouth 4 (four) times daily as needed for Cough. [facility] promethazin e-codeine 6.25-10 mg/5 mL syrup 2016-08 00:00: 00 Yes 5mL Take 5 mL by mouth 4 (four) times daily as needed for Cough. [facility] promethazin e-codeine 6.25-10 mg/5 mL syrup 2016-08 00:00: 00 Yes 5mL Take 5 mL by mouth 4 (four) times daily as needed for Cough. [facility] promethazin e-codeine 6.25-10 mg/5 mL syrup 2016-08 00:00: 00 Yes 5mL Take 5 mL by mouth 4 (four) times daily as needed for Cough. [facility] promethazin e-codeine 6.25-10 mg/5 mL syrup 2016-08 00:00: 00 Yes 5mL Take 5 mL by mouth 4 (four) times daily as needed for Cough. [facility] promethazin e-codeine 6.25-10 mg/5 mL syrup 2016-08 00:00: 00 Yes 5mL Take 5 mL by mouth 4 (four) times daily as needed for Cough. [facility] amitriptyli ne (ELAVIL) 25 mg tablet 11-07 00:00: 00 Yes 25mg Take 1 Tab by mouth at bedtime. [facility] amitriptyli ne (ELAVIL) 25 mg tablet 11-07 00:00: 00 Yes 25mg Take 1 Tab by mouth at bedtime. [facility] amitriptyli ne (ELAVIL) 25 mg tablet 11-07 00:00: 00 Yes 25mg Take 1 Tab by mouth at bedtime. [facility] amitriptyli ne (ELAVIL) 25 mg tablet 11-07 00:00: 00 Yes 25mg Take 1 Tab by mouth at bedtime. [facility] amitriptyli ne (ELAVIL) 25 mg tablet 11-07 00:00: 00 Yes 25mg Take 1 Tab by mouth at bedtime. [facility] amitriptyli ne (ELAVIL) 25 mg tablet 11-07 00:00: 00 Yes 25mg Take 1 Tab by mouth at bedtime. [facility] SERTRALINE HCL (ZOLOFT ORAL) 10-02 19:59: 25 Yes Take by mouth. [facility] ALPRAZOLAM (XANAX ORAL) 10-02 19:59: 25 Yes Take by mouth. [facility] SERTRALINE HCL (ZOLOFT ORAL) 10-02 19:59: 25 Yes Take by mouth. [facility] ALPRAZOLAM (XANAX ORAL) 10-02 19:59: 25 Yes Take by mouth. [facility] SERTRALINE HCL (ZOLOFT ORAL) 10-02 19:59: 25 Yes Take by mouth. [facility] ALPRAZOLAM (XANAX ORAL) 10-02 19:59: 25 Yes Take by mouth. [facility] SERTRALINE HCL (ZOLOFT ORAL) 10-02 19:59: 25 Yes Take by mouth. [facility] ALPRAZOLAM (XANAX ORAL) 10-02 19:59: 25 Yes Take by mouth. [facility] SERTRALINE HCL (ZOLOFT ORAL) 10-02 19:59: 25 Yes Take by mouth. [facility] ALPRAZOLAM (XANAX ORAL) 10-02 19:59: 25 Yes Take by mouth. [facility] SERTRALINE HCL (ZOLOFT ORAL) 10-02 19:59: 25 Yes Take by mouth. [facility] ALPRAZOLAM (XANAX ORAL) 10-02 19:59: 25 Yes Take by mouth. [facility] Vital Signs Vital Name Observation Time Observation Value Comments S ource Systolic blood pressure 2020-12-12 15:47:00 118 mm[Hg] [facility] Diastolic blood pressure 2020-12-12 15:47:00 70 mm[Hg] [facility] Heart rate 2020-12-12 15:47:00 78 /min [facility] Body temperature 2020-12-12 15:47:00 36.56 Suzy [facility] Body height 2020-12-12 15:47:00 149.9 cm [facility] Body weight 2020-12-12 15:47:00 69.4 kg [facility] BMI 2020-12-12 15:47:00 30.90 kg/m2 [facility] Oxygen saturation in Arterial blood by Pulse oximetry 2020-12-12 15:47:00 99 /min [facility] Systolic blood pressure 2020-12-12 15:47:00 118 mm[Hg] [facility] Diastolic blood pressure 2020-12-12 15:47:00 70 mm[Hg] [facility] Heart rate 2020-12-12 15:47:00 78 /min [facility] Body temperature 2020-12-12 15:47:00 36.56 Suzy [facility] Body height 2020-12-12 15:47:00 149.9 cm [facility] Body weight 2020-12-12 15:47:00 69.4 kg [facility] BMI 2020-12-12 15:47:00 30.90 kg/m2 [facility] Oxygen saturation in Arterial blood by Pulse oximetry 2020-12-12 15:47:00 99 /min [facility] Procedures Procedure Date / Time Performed Performing Clinicia n Source ASSIGNMENT OF BENEFITS 2020-12-12 15:34:02 Docto r Unassigned, [place] [facility] REFERRAL- REQUEST/RESPONSE 2020-11-26 05:01:00 Doctor Unassigned, [place] [facility] REFERRAL- REQUEST/RESPONSE 2020-10-22 06:01:00 Doctor Unassigned, [place] [facility] REFERRAL- REQUEST/RESPONSE 2020-02-15 05:01:00 Doctor Unassigned, [place] [facility] Encounters Start Date/Time End Date/Time Encounter Type Admission Type Attending [facility] Care Facility Care Department Encounter ID Source 2020-09-01 03:58:00 Inpatient HCACL DOMENICO [id number] [facility] 2020-08-23 06:04:00 Inpatient HCABM FERS [id number] [facility] 2023-06-20 00:00:00 2023-06-20 00:00:00 Outpatient GC_GCBZW_Ka didawooda_S [facility] [id number] [facility] 2023-06-11 23:18:00 2023-06-12 00:02:00 Emergency EM Barby Mcpherson HCACL GFFSED [id number] [facility] 2022-02-24 15:12:00 2022-02-24 15:40:00 Emergency EM Willa Lozano [facility]ERS [id number] [facility] 2022-02-24 15:12:00 2022-02-24 15:40:00 Emergency EM Willa Lozano [facility] [id number] [facility] 2021-10-13 18:29:00 2021-10-13 22:27:00 Emergency EM Diego Galvan [facility] [id number] [facility] 2021-10-03 09:37:00 2021-10-03 12:07:00 Emergency EM Cristofer Valentin [facility] [id number] [facility] 2021-09-15 13:30:00 2021-09-15 14:23:00 Emergency EM Jr Gomez [facility] [id number] [facility] 2021-08-23 11:59:00 2021-08-23 12:52:00 Emergency EM Cheko Euceda [facility] [id number] [facility] 2021-08-13 13:14:00 2021-08-13 14:53:00 Emergency EM Cristofer Valentin [facility] [id number] [facility] 2021-04-22 13:13:00 2021-04-22 14:56:00 Emergency EM Cristofer Valentin [facility] [id number] [facility] 2021-04-15 18:11:00 2021-04-15 21:09:00 Emergency EM Jorge Luis Valencia [facility] [id number] [facility] 2021-01-28 00:00:00 2021-01-28 00:00:00 Outpatient AWILDA WALL [facility] [id number] [facility] 2021-01-07 00:00:00 2021-01-07 00:00:00 Outpatient AWILDA WALL [facility] [id number] [facility] 2020-12-30 10:45:00 2020-12-30 10:45:00 Outpatient AWILDA WALL [facility] [id number] [facility] 2020-12-12 10:36:20 2020-12-12 11:19:19 Office Visit Awilda Ledesma [facility] [id number] 2020-12-12 10:36:20 2020-12-12 11:19:19 Office Visit Awilda Ledesma [facility] Building [id number] [facility] 2020-12-12 10:00:00 2020-12-12 10:00:00 Outpatient R AWILDA LEDESMA [facility] [id number] [facility] 2020-12-12 00:00:00 2020-12-12 00:00:00 Orders Only Doctor Unassigned, [place] [facility] [id number] [facility] 2020-11-26 00:00:00 2020-11-26 00:00:00 Orders Only Doctor Unassigned, [place] [facility] [id number] 2020-11-26 00:00:00 2020-11-26 00:00:00 Orders Only Doctor Unassigned, [place] [facility] [id number] [facility] 2020-10-22 00:00:00 2020-10-22 00:00:00 Orders Only Doctor Unassigned, [place] [facility] [id number] [id number] [facility] 2020-02-15 00:00:00 2020-02-15 00:00:00 Orders Only Doctor Unassigned, [place] [facility] [id number] [id number] [facility] Results Test Description Test Time Test Comments Results Result Co mments Source Coronavirus 2019 nCoV [id number] 23:33:00* Test Item Value Reference Range Interpretation Comme nts Coronavirus 2019 nCoV Bedside (test code = [id number]) Negative Negative [facility] ID NO W utilizes isothermal [place]icking EnzymeAmplification Reaction (NEAR) technology in the qualitativedetection of infectious diseases. With NEAR technology,amplified target detection is achieved with the use offluorescently labeled molecular beacons, comparable to PCRtechniques -----Negative results should be treated as presumptive and, ifinconsistent with clinical signs and symptoms or necessaryfor patient management, should be tested with an alternativemolecular assay. Negative results do not preclude SHTP-KlY-9pijilbnls and should not be used as the sole basis forpatient management decisions. Negative results should beconsidered in the context of a patient's recent exposures,history, presence of clinical signs and symptoms consistentwith COVID-19. URINALYSIS [id number] 05:48:00* Test Item Value Reference Range Interpretation Comme [...] UA LEUKOCYTE ESTERASE DIPSTICK (test code = LEUU) 100 Darlyn/uL (1+) uL NEGATIVE A UA WBC (test code = WBCU) 5-10 per HPF 0-5 A UA RBC (test code = RBCU) NONE SEEN per HPF 0-5 UA EPITHELIAL CELLS (test code = EPIU) Few (2-5/hpf) per HPF Few UA BACTERIA (test code = BACU) MODERATE per HPF NONE A UA MUCUS (test code = MUCU) FEW per LPF NONE-FEW Urine Source? Clean CatchUR HCG [id number] 05:48:00* Test Item Value Reference Range Interpretation Comme nts UR HCG QUAL (test code = HCGQLU) NEGATIVE This HCGQL test is NOT applicable for MALE patients.Check with nurse about probable order error.If Tumor Marker Test needed, nurse should order test "HCGTU"(Test #550.98310) Urine Source? Clean CatchDRUGS OF ABUSE SCREEN [id number] 05:48:00* Test Item Value Reference Range Interpretation Comme nts URN COCAINE (test code = COCAURN) NEGATIVE NEGATIVE URN CANNABINOIDS (test code = CANNABURN) NEGATIVE NEGATIVE URN AMPHETAMINE (test code = AMPHETURN) NEGATIVE NEGATIVE URN BARBITURATE (test code = BARBITURN) NEGATIVE NEGATIVE URN BENZODIAZEPINE (test code = BENZOURN) NEGATIVE NEGATIVE URN OPIATES (test code = OPIATURN) NEGATIVE See_Comment [Automated messa ge] The system which generated this result transmitted reference range: <300 ng/mL. The reference range was not used to interpret this result as normal/abnormal. URN PHENCYCLIDINE (PCP) (test code = PHENCURN) NEGATIVE NEGATIVE Urine Source? Clean CatchSTREPTOCOCCUS PCR [id number] 10:43:00* Test Item Value Reference Range Interpretation Comme nts STREPTOCOCCUS DYSGALACTIAE (test code = STREPGC) NEGATIVE FOR G/C NEGATIVE STREPA MOLECULAR (test code = STREPAMOL) NEGATIVE FOR GRP A NEGATIVE COVID 19 INHOUSE [id number] 21:28:00* Test Item Value Reference Range Interpretation Comme nts COVID 19 INHOUSE AG (test co de = [id number]) NEGATIVE NEGATIVE UR HCG [id number] 11:28:00* Test Item Value Reference Range Interpretation Comme nts UR HCG QUAL (test code = HCGQLU) NEGATIVE This HCGQL test is NOT applicable for MALE patients.Check with nurse about probable order error.If Tumor Marker Test needed, nurse should order test "HCGTU"(Test #550.32102) COVID 19 INHOUSE [id number] 11:02:00* Test Item Value Reference Range Interpretation Comme nts COVID 19 INHOUSE AG (test co de = [id number]) NEGATIVE NEGATIVE URINALYSIS [id number] 11:01:00* Test Item Value Reference Range Interpretation Comme nts UA COLOR (test code = COLU) YELLOW YELLOW UA APPEARANCE (test code = APPU) hazy CLEAR UA GLUCOSE DIPSTICK (test code = DGLUU) norm mg/dL NEGATIVE UA BILIRUBIN DIPSTICK (test code = BILU) NEGATIVE mg/dL NEGATIVE UA KETONE DIPSTICK (test code = KETU) neg mg/dL NEGATIVE UA SPECIFIC GRAVITY (test code = SGU) 1.010 1.001-1.035 UA BLOOD DIPSTICK (test code = CARMEN) neg Bill/uL NEGATIVE UA PH DIPSTICK (test code = MARCIAL) 7.0 5.0-8.0 UA PROTEIN DIPSTICK (test code = PROU) neg mg/dL Neg-15 UA UROBILINIOGEN DIPSTICK (test code = URO) norm mg/dL 0.0-0.2 UA NITRITE DIPSTICK (test code = ROBERT) NEGATIVE NEGATIVE UA LEUKOCYTE ESTERASE DIPSTICK (test code = LEUU) 25 Darlyn/uL (Trace) uL NEGATIVE A UA WBC (test code = WBCU) 0-5 per HPF 0-5 UA RBC (test code = RBCU) 0-3 per HPF 0-5 UA EPITHELIAL CELLS (test code = EPIU) Few (2-5/hpf) per HPF Few UA BACTERIA (test code = BACU) FEW per HPF NONE URINALYSIS W/O [id number] 11:01:00* Test Item Value Reference Range Interpretation Comme nts UA MICROSCOPIC NEEDED? (test code = UAMICRO) YES COVID 19 INHOUSE [id number] 14:09:00* Test Item Value Reference Range Interpretation Comme nts COVID 19 INHOUSE AG (test co de = [id number]) NEGATIVE NEGATIVE COVID 19 INHOUSE [id number] 12:40:00* Test Item Value Reference Range Interpretation Comme nts COVID 19 INHOUSE AG (test co de = [id number]) NEGATIVE NEGATIVE COVID 19 INHOUSE [id number] 14:43:00* Test Item Value Reference Range Interpretation Comme nts COVID 19 INHOUSE AG (test co de = [id number]) NEGATIVE NEGATIVE - XR CHEST 1 [id number] 14:37:00 [facility])Name: RAMA EDGAR : 1990 Sex: F Name: RAMA EDGAR [facility] : 1990 Age/S:31 /F [address] Unit#:[id number] Loc: [place] [address] Phys: Cristofer Valentin MD Dis Date: PHONE #: [phone] Status: REG ER FAX #: [phone] Exam Date: 04/22/2021 Reason: CHEST PAIN EXAMS: CPT CODE: [id number] XR CHEST 1 V [id number] REASON FOR EXAM: CHEST PAIN Exam Order [...] limits. IMPRESSION: No acute cardiopulmonary process. Location: [facility] at 1437 Reported and signed by: Nikko Langford MD CC: Fred Rider MD; Cristofer Valentin MD Technologist: MOISES JUNG RT(R),CT Trnscrpt Data: 04/22/2021 (1437) [id number] Orig Print D/T: S: 04/22/2021 (9083) PAGE 1 Signed [id number] 14:17:00* Test Item Value Reference Range Interpretation Comme nts D-DIMER (test code = DDIMER) < 100 ng/ml < 600 BASIC METABOLIC [id number] 14:12:00* Test Item Value Reference Range Interpretation Comme nts SODIUM (test code = NA) 144 mmol/L 135-148 N POTASSIUM (test code = K) 3.6 mmol/L 3.5-5.1 N CHLORIDE (test code = CL) 106 mmol/L 101-109 N CARBON DIOXIDE (test code = CO2) 27.1 mmol/L 21-32 N ANION GAP (test code = GAP) 15 mmol/L 10-20 N GLUCOSE (test code = GLU) 115 mg/dL 74-106 H BLOOD UREA NITROGEN (test code = BUN) 12 mg/dL 3-21 N GLOMERULAR FILTRATION RATE (test code = GFR) > 60 mL/min See_Comment Estimated GFR by using Modified MDRD formula.Chronic kidney disease is defined as either kidney damageor GFR <60 mL/min/1.73 m2 for >3 months. [Automated message] The system which generated this result transmitted reference range: >=60. The reference range was not used to interpret this result as normal/abnormal. CREATININE (test code = CREAT) 0.65 mg/dL 0.55-1.3 N BUN/CREATININE RATIO (test code = BUN/CREA) 18.5 10-20 N CALCIUM (test code = CA) 8.0 mg/dL 8.4-10.2 L HEPATIC FUNCTION [id number] 14:12:00* Test Item Value Reference Range Interpretation Comme nts TOTAL PROTEIN (test code = PROT) 7.2 g/dL 6.5-8.4 N ALBUMIN (test code = ALB) 3.4 g/dL 3.4-4.8 N GLOBULIN (test code = GLOB) 3.8 G/DL 1-10 N ALBUMIN/GLOBULIN RATIO (test code = A/G) 0.9 RATIO 0.75-1.50 N BILIRUBIN TOTAL (test code = BILT) 0.30 mg/dL 0.0-1.0 N BILIRUBIN DIRECT (test code = BILD) 0.10 mg/dL 0.0-0.30 N SGOT/AST (test code = AST) 12 U/L 6-32 N SGPT/ALT (test code = ALT) 24 U/L 12-78 N Note: Change in REFERENCE RANGE due to new reagent method. ALKALINE PHOSPHATASE TOTAL (test code = ALKP) 99 U/L 38-126 N [id number] 14:12:00* Test Item Value Reference Range Interpretation Comme nts LIPASE (test code = LIP) 124 U/L 128-270 L HCG SERUM [id number] 14:12:00* Test Item Value Reference Range Interpretation Comme [facility] HCG SERUM QUAL (test code = HCGQL) NEGATIVE NEGATIVE This HCGQL test is NOT applicable for MALE patients.Check with nurse about probable order error.If Tumor Marker Test needed, nurse should order test "HCGTU"(Test #550.89978) [id number] 14:12:00* Test Item Value Reference Range Interpretation Comme nts TROPONIN-I (test code = TROPI) <0.015 ng/mL 0.00-0.056 N COVID 19 INHOUSE [id number] 14:12:00* Test Item Value Reference Range Interpretation Comme nts COVID 19 INHOUSE AG (test co de = [id number]) NEGATIVE NEGATIVE B-TYPE NATRIURETIC [id number] 14:10:00* Test Item Value Reference Range Interpretation Comme nts B-TYPE NATRIURETIC PEPTIDE ( test code = BNP) 14.6 pg/mL 0-100 N BASIC METABOLIC [id number] 14:04:00* Test Item Value Reference Range Interpretation Comme nts SODIUM (test code = NA) mmol/L 135-148 POTASSIUM (test code = K) mmol/L 3.5-5.1 CHLORIDE (test code = CL) mmol/L 101-109 CARBON DIOXIDE (test code = CO2) mmol/L 21-32 ANION GAP (test code = GAP) mmol/L 10-20 GLUCOSE (test code = GLU) mg/dL 74-106 BLOOD UREA NITROGEN (test code = BUN) mg/dL 3-21 GLOMERULAR FILTRATION RATE (test code = GFR) mL/min See_Comment [Automate d message] The system which generated this result transmitted reference range: >=60. The reference range was not used to interpret this result as normal/abnormal. CREATININE (test code = CREAT) mg/dL 0.55-1.3 BUN/CREATININE RATIO (test code = BUN/CREA) 10-20 CALCIUM (test code = CA) mg/dL 8.4-10.2 HEPATIC FUNCTION [id number] 14:04:00* Test Item Value Reference Range Interpretation Comme nts TOTAL PROTEIN (test code = PROT) gram/dL 6.4-8.2 ALBUMIN (test code = ALB) g/dL 3.4-5.0 GLOBULIN (test code = GLOB) g/dL 2.7-4.2 ALBUMIN/GLOBULIN RATIO (test code = A/G) 0.75-1.50 BILIRUBIN TOTAL (test code = BILT) mg/dL 0.2-1.2 BILIRUBIN DIRECT (test code = BILD) mg/dL 0.0-0.20 SGOT/AST (test code = AST) IUnit/L 15-37 SGPT/ALT (test code = ALT) U/L 10-69 ALKALINE PHOSPHATASE TOTAL ( test code = ALKP) IUnit/L 45-117 [id number] 14:04:00* Test Item Value Reference Range Interpretation Comme nts LIPASE (test code = LIP) Unit/L 144-286 HCG SERUM [id number] 14:04:00* Test Item Value Reference Range Interpretation Comme nts HCG SERUM QUAL (test code = HCGQL) NEGATIVE NEGATIVE This HCGQL test is NOT applicable for MALE patients.Check with nurse about probable order error.If Tumor Marker Test needed, nurse should order test "HCGTU"(Test #550.87890) [id number] 14:04:00* Test Item Value Reference Range Interpretation Comme nts TROPONIN-I (test code = TROPI) pg/mL 0-45 BASIC METABOLIC [id number] 14:04:00* Test Item Value Reference Range Interpretation Comme nts SODIUM (test code = NA) 144 mmol/L 135-148 N POTASSIUM (test code = K) 3.6 mmol/L 3.5-5.1 N CHLORIDE (test code = CL) 106 mmol/L 101-109 N CARBON DIOXIDE (test code = CO2) 27.1 mmol/L 21-32 N ANION GAP (test code = GAP) 15 mmol/L 10-20 N GLUCOSE (test code = GLU) 115 mg/dL 74-106 H BLOOD UREA NITROGEN (test code = BUN) 12 mg/dL 3-21 N GLOMERULAR FILTRATION RATE (test code = GFR) > 60 mL/min See_Comment Estimated GFR by using Modified MDRD formula.Chronic kidney disease is defined as either kidney damageor GFR <60 mL/min/1.73 m2 for >3 months. [Automated message] The system which generated this result transmitted reference range: >=60. The reference range was not used to interpret this result as normal/abnormal. CREATININE (test code = CREAT) 0.65 mg/dL 0.55-1.3 N BUN/CREATININE RATIO (test code = BUN/CREA) 18.5 10-20 N CALCIUM (test code = CA) 8.0 mg/dL 8.4-10.2 L HEPATIC FUNCTION [id number] 14:04:00* Test Item Value Reference Range Interpretation Comme [facility] TOTAL PROTEIN (test code = PROT) gram/dL 6.4-8.2 ALBUMIN (test code = ALB) g/dL 3.4-5.0 GLOBULIN (test code = GLOB) g/dL 2.7-4.2 ALBUMIN/GLOBULIN RATIO (test code = A/G) 0.75-1.50 BILIRUBIN TOTAL (test code = BILT) mg/dL 0.2-1.2 BILIRUBIN DIRECT (test code = BILD) mg/dL 0.0-0.20 SGOT/AST (test code = AST) IUnit/L 15-37 SGPT/ALT (test code = ALT) U/L 10-69 ALKALINE PHOSPHATASE TOTAL ( test code = ALKP) IUnit/L 45-117 [id number] 14:04:00* Test Item Value Reference Range Interpretation Comme [facility] LIPASE (test code = LIP) Unit/L 144-286 HCG SERUM [id number] 14:04:00* Test Item Value Reference Range Interpretation Comme [facility] HCG SERUM QUAL (test code = HCGQL) NEGATIVE NEGATIVE This HCGQL test is NOT applicable for MALE patients.Check with nurse about probable order error.If Tumor Marker Test needed, nurse should order test "HCGTU"(Test #[id number]) [id number] 14:04:00* Test Item Value Reference Range Interpretation Comme [facility] TROPONIN-I (test code = TROPI) pg/mL 0-45 CBC W/O [id number] 14:04:00* Test Item Value Reference Range Interpretation Comme [facility] WHITE BLOOD CELL (test code = WBC) 8.1 K/mm3 4.5-12.5 N RED BLOOD CELL (test code = RBC) 3.85 mill/mm3 3.7-5.2 N HEMOGLOBIN (test code = HGB) 12.0 gram/dL 11.5-15.5 N HEMATOCRIT (test code = HCT) 37.4 % 36.0-46.0 N MEAN CELL VOLUME (test code = MCV) 97.1 fL 80-98 N MEAN CELL HGB (test code = MCH) 31.2 picogram 27.0-33.0 N MEAN CELL HGB CONCETRATION (test code = MCHC) 32.1 gram/dL 33.0-36.0 L RED CELL DISTRIBUTION WIDTH (test code = RDW) 13.6 % 11.6-16.2 N RED CELL DISTRIBUTION WIDTH SD (test code = RDW-SD) 48.8 fL 37.0-51.0 N PLATELET COUNT (test code = PLT) 314 K/mm3 150-450 N MEAN PLATELET VOLUME (test c ode = MPV) 10.4 fL 6.7-11.0 N URINALYSIS [id number] 20:19:00* Test Item Value Reference Range Interpretation Comme nts UA COLOR (test code = COLU) YELLOW YELLOW UA APPEARANCE (test code = APPU) HAZY CLEAR A UA GLUCOSE DIPSTICK (test code = DGLUU) norm mg/dL NEGATIVE UA BILIRUBIN DIPSTICK (test code = BILU) NEGATIVE mg/dL NEGATIVE UA KETONE DIPSTICK (test code = KETU) neg mg/dL NEGATIVE UA SPECIFIC GRAVITY (test code = SGU) 1.015 1.001-1.035 UA BLOOD DIPSTICK (test code = CARMEN) 250 (4+) Bill/uL NEGATIVE A UA PH DIPSTICK (test code = MARCIAL) 6.0 5.0-8.0 UA PROTEIN DIPSTICK (test code = PROU) 30 (1+) mg/dL Neg-15 A UA UROBILINIOGEN DIPSTICK (test code = URO) 1 mg/dL 0.0-0.2 A UA NITRITE DIPSTICK (test code = ROBERT) NEGATIVE NEGATIVE UA LEUKOCYTE ESTERASE DIPSTICK (test code = LEUU) 25 Darlyn/uL (Trace) uL NEGATIVE A UA WBC (test code = WBCU) 0-5 per HPF 0-5 UA RBC (test code = RBCU) 0-3 per HPF 0-5 UA EPITHELIAL CELLS (test code = EPIU) Few (2-5/hpf) per HPF Few UA BACTERIA (test code = BACU) TRACE per HPF NONE Urine Source? Clean CatchUR HCG [id number] 20:19:00* Test Item Value Reference Range Interpretation Comme nts UR HCG QUAL (test code = HCGQLU) NEGATIVE This HCGQL test is NOT applicable for MALE patients.Check with nurse about probable order error.If Tumor Marker Test needed, nurse should order test "HCGTU"(Test #550.32485) Urine Source? Clean CatchCOVID 19 INHOUSE [id number] 20:19:00* Test Item Value Reference Range Interpretation Comme nts COVID 19 INHOUSE AG (test co de = [id number]) NEGATIVE NEGATIVE - US ABDOMEN [id number] 20:18:00 [facility] ([facility])Name: RAMA EDGAR : 1990 Sex: F Name: RAMA EDGAR [facility] : 1990 Age/S: 31 / F [address] Unit #: [id number] Loc: [place] [address] Phys: Jorge Luis Valencia MD Acct: [id number] Dis Date: Status: PRE ER PHONE #: [phone] Exam Date: 04/15/20212001 FAX #: [phone] Reason: Abdominal Pain EXAMS: CPT CODE: [id number] US ABDOMEN LTD 08742 REASON FOR EXAM: Abdominal Pain EXAM ORDER DATE: 04/15/2021 7:26 PM Attending David: Jorge Luis Valencia MD PROCEDURE: - US ABDOMEN LTD Technique: Grayscale and color Doppler images of the [...] Portal vein caliber is within normal limits. Portal vein is patent with hepatopetal flow. Pancreas: Incompletely visualized. However the visualized portions are grossly within normal limits. Right kidney: parenchyma echogenicity: Normal echogenicity size: 10.0 x 3.9 x 4.4 cm stones: none cysts/masses: none PAGE 1 Signed Report (CONTINUED) Name: RAMA EDGAR [facility] : 1990 Age/S: 31 / F [address] [facility] Unit #: [id number] Loc: [place] [address] Phys: Jorge Luis Valencia MD Acct: [id number] Dis Date: Status: PRE ER PHONE #: [phone] Exam Date: 04/15/20212001 FAX #: [phone] Reason: Abdominal Pain EXAMS: CPT CODE: [id number] US ABDOMEN LTD 05938 (Continued) hydronephrosis: none Ascites/pleural effusions: None IMPRESSION: Sonographically unremarkable abdomen. Location: [facility] at 2018 Reported and signed by: Nikko Langford MD CC: Jorge Luis Valencia MD Technologist: Justine Lamas [facility] Trnscb Date/Time: 04/15/2021 (2017) CatinaRR31 Orig Print D/T: S: 04/15/2021 (2020) Probe: PAGE 2 Signed ReportURINALYSIS [id number] 20:10:00* Test Item Value Reference Range Interpretation Comme nts UA COLOR (test code = COLU) YELLOW YELLOW UA APPEARANCE (test code = APPU) HAZY CLEAR A UA GLUCOSE DIPSTICK (test code = DGLUU) norm mg/dL NEGATIVE UA BILIRUBIN DIPSTICK (test code = BILU) NEGATIVE mg/dL NEGATIVE UA KETONE DIPSTICK (test code = KETU) neg mg/dL NEGATIVE UA SPECIFIC GRAVITY (test code = SGU) 1.015 1.001-1.035 UA BLOOD DIPSTICK (test code = CARMEN) 250 (4+) Bill/uL NEGATIVE A UA PH DIPSTICK (test code = MARCIAL) 6.0 5.0-8.0 UA PROTEIN DIPSTICK (test code = PROU) 30 (1+) mg/dL Neg-15 A UA UROBILINIOGEN DIPSTICK (test code = URO) 1 mg/dL 0.0-0.2 A UA NITRITE DIPSTICK (test code = ROBERT) NEGATIVE NEGATIVE UA LEUKOCYTE ESTERASE DIPSTICK (test code = LEUU) 25 Darlyn/uL (Trace) uL NEGATIVE A UA WBC (test code = WBCU) per HPF 0-5 UA RBC (test code = RBCU) per HPF 0-5 UA EPITHELIAL CELLS (test code = EPIU) per HPF Few UA BACTERIA (test code = BACU) per HPF NONE Urine Source? Clean CatchUR HCG [id number] 20:10:00* Test Item Value Reference Range Interpretation Comme nts UR HCG QUAL (test code = HCGQLU) Urine Source? Clean CatchCOMPREHENSIVE METABOLIC [id number] 20:04:00* Test Item Value Reference Range Interpretation Comme nts SODIUM (test code = NA) 137 mmol/L 136-145 N POTASSIUM (test code = K) 3.4 mmol/L 3.5-5.1 L CHLORIDE (test code = CL) 104 mmol/L 101-109 N CARBON DIOXIDE (test code = CO2) 25.6 mmol/L 21-32 N ANION GAP (test code = GAP) 11 mmol/L 10-20 N GLUCOSE (test code = GLU) 89 mg/dL 74-106 N BLOOD UREA NITROGEN (test code = BUN) 11 mg/dL 3-21 N GLOMERULAR FILTRATION RATE (test code = GFR) > 60 mL/min See_Comment Estimated GFR by using Modified MDRD formula.Chronic kidney disease is defined as either kidney damageor GFR <60 mL/min/1.73 m2 for >3 months. [Automated message] The system which generated this result transmitted reference range: >=60. The reference range was not used to interpret this result as normal/abnormal. CREATININE (test code = CREAT) 0.53 mg/dL 0.55-1.3 L BUN/CREATININE RATIO (test code = BUN/CREA) 20.8 10-20 H TOTAL PROTEIN (test code = PROT) 7.2 g/dL 6.5-8.4 N ALBUMIN (test code = ALB) 3.6 g/dL 3.4-4.8 N GLOBULIN (test code = GLOB) 3.6 G/DL 1-10 N ALBUMIN/GLOBULIN RATIO (test code = A/G) 1.00 RATIO 0.75-1.50 N CALCIUM (test code = CA) 7.3 mg/dL 8.4-10.2 L BILIRUBIN TOTAL (test code = BILT) 0.30 mg/dL 0.0-1.0 N SGOT/AST (test code = AST) 15 U/L 6-32 N SGPT/ALT (test code = ALT) 18 U/L 12-78 N Note: Change in REFERENCE RANGE due to new reagent method. ALKALINE PHOSPHATASE TOTAL (test code = ALKP) 96 U/L 38-126 N [id number] 20:04:00* Test Item Value Reference Range Interpretation Comme nts LIPASE (test code = LIP) 116 U/L 128-270 L COMPREHENSIVE METABOLIC [id number] 19:58:00* Test Item Value Reference Range Interpretation Comme nts SODIUM (test code = NA) 137 mmol/L 136-145 N POTASSIUM (test code = K) 3.4 mmol/L 3.5-5.1 L CHLORIDE (test code = CL) 104 mmol/L 101-109 N CARBON DIOXIDE (test code = CO2) 25.6 mmol/L 21-32 N ANION GAP (test code = GAP) 11 mmol/L 10-20 N GLUCOSE (test code = GLU) 89 mg/dL 74-106 N BLOOD UREA NITROGEN (test code = BUN) 11 mg/dL 3-21 N GLOMERULAR FILTRATION RATE (test code = GFR) > 60 mL/min See_Comment Estimated GFR by using Modified MDRD formula.Chronic kidney disease is defined as either kidney damageor GFR <60 mL/min/1.73 m2 for >3 months. [Automated message] The system which generated this result transmitted reference range: >=60. The reference range was not used to interpret this result as normal/abnormal. CREATININE (test code = CREAT) 0.53 mg/dL 0.55-1.3 L BUN/CREATININE RATIO (test code = BUN/CREA) 20.8 10-20 H TOTAL PROTEIN (test code = PROT) gram/dL 6.4-8.2 ALBUMIN (test code = ALB) g/dL 3.4-5.0 GLOBULIN (test code = GLOB) g/dL 2.7-4.2 ALBUMIN/GLOBULIN RATIO (test code = A/G) 0.75-1.50 CALCIUM (test code = CA) 7.3 mg/dL 8.4-10.2 L BILIRUBIN TOTAL (test code = BILT) mg/dL 0.2-1.2 SGOT/AST (test code = AST) IUnit/L 15-37 SGPT/ALT (test code = ALT) U/L 10-69 ALKALINE PHOSPHATASE TOTAL (test code = ALKP) IUnit/L 45-117 [id number] 19:58:00* Test Item Value Reference Range Interpretation Comme nts LIPASE (test code = LIP) Unit/L 144-286 CBC W/AUTO [id number] 19:48:00* Test Item Value Reference Range Interpretation Comme nts WHITE BLOOD CELL (test code = WBC) 9.9 K/mm3 4.5-12.5 N RED BLOOD CELL (test code = RBC) 3.81 mill/mm3 3.7-5.2 N HEMOGLOBIN (test code = HGB) 11.8 gram/dL 11.5-15.5 N HEMATOCRIT (test code = HCT) 37.7 % 36.0-46.0 N MEAN CELL VOLUME (test code = MCV) 99.0 fL 80-98 H MEAN CELL HGB (test code = MCH) 31.0 picogram 27.0-33.0 N MEAN CELL HGB CONCETRATION (test code = MCHC) 31.3 gram/dL 33.0-36.0 L RED CELL DISTRIBUTION WIDTH (test code = RDW) 13.6 % 11.6-16.2 N RED CELL DISTRIBUTION WIDTH SD (test code = RDW-SD) 50.0 fL 37.0-51.0 N PLATELET COUNT (test code = PLT) 317 K/mm3 150-450 N MEAN PLATELET VOLUME (test c ode = MPV) 10.2 fL 6.7-11.0 N NEUTROPHIL % (test code = NT%) 67.1 [...] K/mm3 0.0-0.2 N MANUAL DIFF REQUIRED (test c ode = MDIFF) NO Covid 19 InHouse [id number] 11:23:00* Test Item Value Reference Range Interpretation Comme nts Covid 19 InHouse NTX (test code = [id number]) Negative Negative A negative resul t does not preclude the SARS-COV-2 viralinfection and should not be used as the sole basis forpatient management decisions. Negative results must becombined with clinical observations, patient history, andepidemiological information. Viral levels in clinicalsamples below the detection limit of the assay could lead tonegative results. This test was performed using the [employer] SmartTM COVID-19 PCRassay. This test was developed and its performancecharacteristics were determined by [facility]. This test has notbeen FDA cleared or approved. This test is authorized by theA under Emergency Use Authorization(EUA). The EUA willremain in effect unless it is terminated or revoked by FDA . Testing parameters have not been validated for screeningasymptomatic patients. This test was validated according to the FDA's guidancedocument "Policy for Diagnostics testing in LaboratoriesCertified to Perform High Complexity Testing under CLIA". Is the patient going to be discharged home? YIs the patient going to be discharged home? YFirst test? YesEmployed in Healthcare? NoSymptomatic as defined by CDC? YesDate of Symptom Onset: [id number] due to COVID? NoIn ICU due to COVID? NoResident in a congregate care setting? No? N oAge at collection: YSTREPTOCOCCUS PCR [id number] 03:45:00* Test Item Value Reference Range Interpretation Comme nts STREPTOCOCCUS DYSGALACTIAE (test code = STREPGC) NEGATIVE FOR G/C NEGATIVE STREPA MOLECULAR (test code = STREPAMOL) NEGATIVE FOR GRP A NEGATIVE Notes Date/Time Note Provider Source 2023-06-11 23:30:00 [id number]:30:00 [facility] ([facility])EMERGENCY PROVIDER REPORTREPORT#:[id number] REPORT STATUS: SignedDATE:06/11/23 TIME: 2329 PATIENT: RAMA EDGAR UNIT #: [id number]#: [id number] ROOM/BED:AGE: 33 SEX: F PCP PHYS:SERVICE DT: AUTHOR: Barby Mcpherson MD * ALL edits or amendments must be made on the electronic/computer document * HPI-URI/Cough/Cold Free Text HPI NotesFree Text HPI [id number] female who presents with upper respiratory infection for approximately 2 days. Patient reports positive sick contacts. Patient denies past medical history of any medical problems. Patient reports that she has beentaking Robitussin with minimal improvement. Patient reports cough with white sputum production however reports mild fever 100.5. Patient does not know of anything that makes symptoms improved or worse. Patient has had similar symptoms with URI. GeneralConfirmed Patient YesInitial Greet Date/Time 06/11/23 6419 PresentationChief Complaint Cough, productive, Nasal congestion, Runny nose, Upper resp infection Review of Systems ROS StatementsAll systems rev neg except as marked.Complete sys rev neg except as marked. Basic Review of SystemsBasic ROS CV: No chest pain, : No dysuria/frequency, MS: No ext swelling/pain,HEM: No bleeding/bruising, PSYCH: NL thought content Focused Review of SystemsConstitutionalReports: Fatigue, Fever. Denies: Lethargy, Weakness - generalized. EyesDenies: Blurred L, Discharge L, Eye pain L. Ears/Nose/ThroatDenies: Ear drainage R, Ear ringing bilat, Earache bilat. RespiratoryDenies: Dyspnea on exertion, Shortness of breath. GIDenies: Belching, Dysphagia, Melena. SkinDenies: Burn, Itching, Rash. Allergy/ImmunDenies: Anaphylaxis, Rhinorrhea. NeurologicDenies: Bladder dysfunction, Dizziness, Lightheaded. Past Medical History - AdultStated Complaint FLU LIKE SYMPTOMSAllergiesCoded Allergies:sulfamethoxazole (From BACTRIM) (Severe, HIVES 10/13/21)trimethoprim (From BACTRIM) (Severe, HIVES 10/13/21) Home MedicationsActive ScriptsPROMETHAZINE (PHENERGAN) 12.5 MG PO Q6H PRN VOMITING PROMETHAZINE (PHENERGAN) 12.5 MG PO Q6H PRN VOMITING #12 TABS Prov: 10/03/21PHENAZOPYRIDINE (PYRIDIUM) 200 MG PO TID PRN PRN DYSURIA PHENAZOPYRIDINE (PYRIDIUM) 200 MG PO TID PRN PRN DYSURIA #6 TABS Prov: 02/24/22ONDANSETRON ODT (ZOFRAN ODT) 4 MG PO Q6H PRN PRN NAUSEA/VOMITING ONDANSETRON ODT (ZOFRAN ODT) 4 MG PO Q6H PRN PRN NAUSEA/VOMITING #15 TABS Prov: 02/24/22cefUROXime axetiL (CEFTIN) 500 MG PO Q12H cefUROXime axetiL (CEFTIN) 500 MG PO Q12H #14 TABS Prov: 02/24/22 Pt reports no significant: Past medical history, Past surgical historyAdditional Surgical HistoryI D ABSCESSFamily History:Reports: Diabetes, Hypertension. Alcohol Use Denies EtOH useDrug Use Denies recreational drugsSmoking status for patients 13 years old or older: Current some day smoker Physical Exam Vital SignsVital SignsFirst Documented: Result Date Time Pulse Ox 100 06/11 2323 B/P 120/81 06/11 232 B/P Mean 94 06/11 2323 O2 Delivery Room air 06/11 2323 Temp 36.8 06/11 2323 Pulse 99 06/11 2323 Resp 18 06/11 2323 Last Documented: Result Date Time Pulse Ox 100 06/11 2323 B/P 120/81 06/11 232 B/P Mean 94 06/11 2323 O2 Delivery Room air 06/11 2323 Temp 36.8 06/11 2323 Pulse 99 06/11 2323 Resp 18 06/11 2323 Review of Vital Signs Reviewed, Vital signs normal Basic Physical ExamBasic PE HEAD: Atraumatic/NC, EYES: PERRL, conj clear, NECK: Supple, CV: Reg rate rhythm, ABD: Soft/non-tender, EXT: No gross abnormality, SKIN: No rashes,warm/dry, NEURO: alert oriented, NEURO: gross movement NL, PSYCH: NL thought content Focused PEGeneral/Const General/Const Awake, Alert, No acute distress, Well developed, Well nourished, CooperativeEyes Eyes Atraumatic, PERRL, EOMI, No nystagmus, No periorbital redness, No periorbital swellingEars/Nose/Throat Ears/Nose/Throat Atraumatic, Airway patent, Mucous membranes moist, Pharynx NLMS Neck Neck Atraumatic, Supple, No meningismus, Full range of motionResp/Chest Respiratory/Chest Atraumatic, Breath sounds NL, Breath sounds = bilat, No respiratory distress, No ralesCardiovascular Cardiovascular Heart rate NL, Regular rhythm, Heart sounds NL, No gallop, No murmurs, No rubsAbdomen/GI Abdomen/GI Atraumatic, Soft, Non-tender, McBurney's non-tender, No guarding, No rebound, BS normoactive, No distentionSkin Skin Atraumatic, Color NL, Warm, Dry, IntactNeurologic Neurologic Oriented X3, Speech NL, No motor deficits, No sensory deficits, CNII - XII intact Interpretation Diagnostics Lab Results InterpretationResultsLaboratory Tests: 06/11 2323 Serology SARS CoV-2 RNA Rapid UBALDO (Negative) Negative Point of Care TestingPulse Oximetry Pulse Ox % 100 On: Room air Interpretation Interpreted by me, Pulse oximetry normal Time 2331 Re-Evaluation MDM Free Text MDM NotesFree Text MDM [id number] female that presents with URI symptoms for 2-day. Patient will undergo flu and COVID testing in ED. Patient differential diagnosis includes viral upper respiratory infection bronchitis rhinitis acute sinusitis and other acute URI symptoms. Patient will be discharged with Tamiflu, Tessalon Perles and asked to follow-up PCP within 2 days. Re-Evaluation/ProgressRe-Evaluation/Progress Time of Re-Eval 2332 Re-Eval Status Improved Eval Following Treatment Pt. feels better, Condition improved URI/Flu Adult MDM NoteThe patient is now resting comfortably, is alert and in no distress. The patienthas a normal mental status and is neurologically intact. The patient appears well and is able to tolerate food or fluid by mouth, and there is no significantdehydration. There is no respiratory distress and no signs of systemic toxicity.The history, exam, diagnostic testing (if any) and current condition do not demonstrate an infectious process such as meningitis, severe pneumonia, retropharyngeal abscess, epiglottitis, sepsis or other serious bacterial infection requiring further testing, treatment, consultation, or admission at this time. The vital signs have been stable. The patient's condition is stable and appropriate for discharge. The patient will pursue further outpatient evaluation with the primary care physician or other designated or consulting physician as indicated in the discharge instructions. Patient Discharge Departure Vital Signs/ConditionVital SignsFirst Documented: Result Date Time Pulse Ox 100 06/11 2323 B/P 120/81 06/11 2323 B/P Mean 94 06/11 2323 O2 Delivery Room air 06/11 2323 Temp 36.8 06/11 2323 Pulse 99 06/11 2323 Resp 18 06/11 2323 Last Documented: Result Date Time Pulse Ox 100 06/11 2323 B/P 120/81 06/11 2323 B/P Mean 94 06/11 2323 O2 Delivery Room air 06/11 2323 Temp 36.8 06/11 2323 Pulse 99 06/11 2323 Resp 18 06/11 2323 All vital signs available at the time of this entry have been reviewed. Condition Stable, Improved Clinical ImpressionClinical ImpressionPrimary Impression: InfluenzaSecondary Impressions: Influenza B, Viral URITime of Impression 2332 Disposition DecisionDischarge )( Discharged to Home Yes )( Time 2333 )( Date 06/11/23 Discharge/Care PlanCounseled Regarding Diagnosis, Lab results, Prescriptions, Need for follow-up, When to return to ED(Auto) PrescriptionsCurrent Visit ScriptsOSELTAMIVIR (TAMIFLU) 75 MG PO BID OSELTAMIVIR (TAMIFLU) 75 MG PO BID #10 CAPS TAKE FOR 5 DAYS. BENZONATATE (TESSALON) 200 MG PO Q8H PRN PRN COUGH BENZONATATE (TESSALON) 200 MG PO Q8H PRN PRN COUGH #20 CAPS Patient Instructions ED Influenza (Adult), ED URI, Viral W/ Wheezing (Adult) Discharge NoteI have spoken with the patient and/or caregivers. I have explained the patient'scondition, diagnoses and treatment plan based on the information available to meat this time. I have answered the patient's and/or caregiver's questions and addressed any concerns. The patient and/or caregivers have as good an understanding of the patient's diagnosis, condition and treatment plan as can beexpected at this point. The vital signs have been stable. The patient's condition is stable and appropriate for discharge from the emergency department. The patient will pursue further outpatient evaluation with the primary care physician or other designated or consulting physician as outlined in the discharge instructions. The patient and/or caregivers are agreeable to this planof care and follow-up instructions have been explained in detail. The patient and/or caregivers have received these instructions in written format and have expressed an understanding of the discharge instructions. The patient and/or caregivers are aware that any significant change in condition or worsening of symptoms should prompt an immediate return to this or the closest emergency department or a call to 911. at 2335RPT #:[id number] OF REPORTEDEmergency department [id number]:30:00G.[id number] ilable for patient horkSTWNXQXCYTAUTU9301-62-98A06:36:30 HCACL 2022-02-24 15:20:00 [id number] KgtWCWp+27MCmWcTefs51WpoKvPGEzH9153-89-45R75:20:0 0 [facility] PROVIDER REPORTREPORT#:[id number] REPORT STATUS: SignedDATE:02/24/22 TIME: 1520 PATIENT: RAMA EDGAR UNIT #: [id number]#: [id number] ROOM/BED:AGE: 32 SEX: F PCP PHYS: Fred Rider MDSERVICE AUTHOR: Francoise Guidry OIL DISPENSER * ALL edits or amendments must be made on the electronic/computer document * Francoise Guidry 02/24/22 1520:HPI- Female GeneralConfirmed Patient YesPatient Type New patientInitial Greet Date/Time 02/24/22 1516 PresentationChief Complaint DysuriaHx Obtained From Patient)( Sudden in Onset? NoOnset Occurred Days agoSymptom Duration Since onsetCaused by No trauma by historyLocation Suprapubic, BackSeverity: Onset MildSeverity: Current Mild ContextImmunization Status General All up to date Risk- Female Risk StratificationEctopic Risk factors reviewed Review of Systems ROS StatementsAll systems rev neg except as marked. Focused Review of SystemsGIReports: Abdominal pain. FemaleReports: Dysuria. Past Medical History - AdultStated Complaint ABDOMINAL PAINAllergiesCoded Allergies:sulfamethoxazole (From BACTRIM) (Severe, HIVES 10/13/21)trimethoprim (From BACTRIM) (Severe, HIVES 10/13/21) Home MedicationsActive ScriptsPROMETHAZINE (PHENERGAN) 12.5 MG PO Q6H PRN VOMITING PROMETHAZINE (PHENERGAN) 12.5 MG PO Q6H PRN VOMITING #12 TABS Prov: 10/03/21 Pt reports no significant: Past medical historyAdditional Surgical HistoryI D ABSCESSFamily History:Reports: Diabetes, Hypertension. Alcohol Use Denies EtOH useDrug Use Denies recreational drugsSmoking status for patients 13 years old or older: Never Smoker Physical Exam Vital SignsVital SignsFirst Documented: Result Date Time Pulse Ox 98 02/24 1512 B/P 103/56 / 1512 B/P Mean 71 / 1512 O2 Delivery Room air 02/24 151 Temp 36.7 / 1512 Pulse 83 / 1512 Resp 16 02/24 151 Last Documented: Result Date Time Pulse Ox 98 / 1512 B/P 103/56 / 1512 B/P Mean 71 / 1512 O2 Delivery Room air / 151 Temp 36.7 / 1512 Pulse 83 / 1512 Resp 16 02/24 151 Review of Vital Signs Reviewed Focused PEGeneral/Const General/Const Awake, Alert, Well appearingResp/Chest Respiratory/Chest Breath sounds NL, Breath sounds = bilat, No respiratory distress, No rales, No rhonchi, No wheezingCardiovascular Cardiovascular Heart rate NL, Regular rhythm, Heart sounds NL, Peripheral circulation NLAbdomen/GI Abdomen/GI Soft, No guarding, No rebound Tenderness/Guarding/Rebound Tender suprapubic. MS Back Back Inspection NL, Non-tender, No CVA tendernessSkin Skin Color NL, No rash, Warm, Dry, Turgor NLGenitourinary Pelvic Exam Exam deferred. Interpretation Diagnostics Lab Results InterpretationResultsLaboratory Tests: 02/25 1516 Toxicology Urine Opiates Screen (<300 ng/mL) NEGATIVE Urine Barbiturates (NEGATIVE) NEGATIVE Ur Phencyclidine Scrn (NEGATIVE) NEGATIVE Ur Amphetamines Screen (NEGATIVE) NEGATIVE U Benzodiazepines Scrn (NEGATIVE) NEGATIVE Urine Cocaine Screen (NEGATIVE) NEGATIVE Urine Cannabinoids (NEGATIVE) NEGATIVE Urines Urine Color (YELLOW) YELLOW Urine Appearance (CLEAR) SLIGHT CLOUDY H Urine pH (5.0 - 8.0) 8.0 Ur Specific Avilla (1.001 - 1.035) 1.010 Urine Protein (Neg - 15 mg/dL) 15 (TRACE) H Urine Glucose (UA) (NEGATIVE mg/dL) norm Urine Ketones (NEGATIVE mg/dL) neg Urine Blood (NEGATIVE Bill/uL) neg Urine Nitrite (NEGATIVE) NEGATIVE Urine Bilirubin (NEGATIVE mg/dL) NEGATIVE Urine Urobilinogen (0.0 - 0.2 mg/dL) 1 H Ur Leukocyte Esterase (NEGATIVE uL) 100 Darlny/uL (1+) H Urine RBC (0 - 5 per HPF) NONE SEEN Urine WBC (0 - 5 per HPF) 5-10 H Ur Epithelial Cells (Few per HPF) Few (2-5/hpf) Urine Bacteria (NONE per HPF) MODERATE H Urine Mucus (NONE - FEW per LPF) FEW Urine HCG, Qual NEGATIVE Lab StatementLaboratory studies reviewed and considered in the medical decision-making. Point of Care TestingUrinalysis Interpretation Positive leukocyte est, Positive WBC's, Positive bacteriaPulse Oximetry Pulse Ox % 98 On: Room air Interpretation Interpreted by il Time 1515 Re-Evaluation MDM Free Text MDM NotesFree Text MDM NotesLab results with patient. UTI on UA. Will start on oral antibiotics. Repeat abdominal exam benign. No peritoneal signs. No CVA tenderness. Discussed needfor follow-up with PCP. ER return precautions given. The vital signs have beenstable. The patient does not have uncontrollable pain, intractable vomiting, or other significant symptoms. The patient's condition is stable and appropriate for discharge. The patient will pursue further outpatient evaluation with the primary care physician or other designated or consulting physician as indicated in the discharge instructions. ED CourseMedication(s) OrderedMedication(s) Ordered:Central Nervous System Agents Sig/Ike Start time Last Medication Dose Route Stop Time Status Admin Acetaminophen 650 MG X1ED STA 02/24 1524 DC 02/24 PO 02/24 1525 1532 Patient Discharge Departure Vital Signs/ConditionVital SignsFirst Documented: Result Date Time Pulse Ox 98 02/24 1512 B/P 103/56 02/24 1512 B/P Mean 71 02/24 1512 O2 Delivery Room air 02/24 1512 Temp 36.7 02/24 1512 Pulse 83 02/24 1512 Resp 16 02/24 1512 Last Documented: Result Date Time Pulse Ox 98 / 1512 B/P 103/56 02/24 1512 B/P Mean 71 02/24 1512 O2 Delivery Room air 02/25 1512 Temp 36.7 02/25 1512 Pulse 83 02/25 1512 Resp 16 02/25 1512 All vital signs available at the time of this entry have been reviewed. Condition Stable Clinical ImpressionClinical ImpressionPrimary Impression: UTI (urinary tract infection) Disposition DecisionDischarge )( Discharged to Home Yes )( Time 1540 )( Date 02/24/22 Discharge/Care PlanCounseled Regarding Diagnosis, Lab results, Prescriptions, Need for follow-up, When to return to ED(Auto) PrescriptionsCurrent Visit ScriptsPHENAZOPYRIDINE (PYRIDIUM) 200 MG PO TID PRN PRN DYSURIA PHENAZOPYRIDINE (PYRIDIUM) 200 MG PO TID PRN PRN DYSURIA #6 TABS TAKE AFTER MEALS. ONDANSETRON ODT (ZOFRAN ODT) 4 MG PO Q6H PRN PRN NAUSEA/VOMITING ONDANSETRON ODT (ZOFRAN ODT) 4 MG PO Q6H PRN PRN NAUSEA/VOMITING #15 TABS cefUROXime axetiL (CEFTIN) 500 MG PO Q12H cefUROXime axetiL (CEFTIN) 500 MG PO Q12H #14 TABS Prescriptions Reviewed Risks, Benefits, Alternative treatmentPatient Instructions Urinary Tract Infections in Women Discharge NoteI have spoken with the patient and/or caregivers. I have explained the patient'scondition, diagnoses and treatment plan based on the information available to meat this time. I have answered the patient's and/or caregiver's questions and addressed any concerns. The patient and/or caregivers have as good an understanding of the patient's diagnosis, condition and treatment plan as can beexpected at this point. The vital signs have been stable. The patient's condition is stable and appropriate for discharge from the emergency department. The patient will pursue further outpatient evaluation with the primary care physician or other designated or consulting physician as outlined in the discharge instructions. The patient and/or caregivers are agreeable to this planof care and follow-up instructions have been explained in detail. The patient and/or caregivers have received these instructions in written format and have expressed an understanding of the discharge instructions. The patient and/or caregivers are aware that any significant change in condition or worsening of symptoms should prompt an immediate return to this or the closest emergency department or a call to 911. Quality MeasuresBP F/U for HTN BP in normal rangePreg Test for Women w/Abd Pain Female age 14-50, Complaint of abdominal pn, Any preg test orderedSmoking Cessation Screened, non user Willa Lozano 02/25/22 1809:Past Medical History - AdultReview of Nursing Notes Rev avail, and agree Interpretation Diagnostics Lab Results InterpretationConsiderations Reviewed prior records Patient Discharge Departure Discharge/Care PlanReferralsResource Referral: Aaron Valenzuela [facility] Address: [address] [place] [address] Resource Referral: Isaac [facility] Address: [address] [place] [id number] Quality MeasuresTobacco Screening/Cessation 18 years or older, Denies tobacco use Supervising Physician Note MidLv Saw Pt AloneI have reviewed the PA/OIL DISPENSER's note and plan of care. I was available for consultation as needed at all times during the patient's visit in the emergency department. I agree with the clinical impression, plan and disposition. at 1559 at 1810RPT #:[id number] OF REPORTEDEmergency department [id number]:20:00V.[id number] ilable for patient [id number]:24:39 [facility] 2021-10-13 20:15:00 [id number]:15:00 [facility] ([facility])EMERGENCY PROVIDER REPORTREPORT#:[id number] REPORT STATUS: SignedDATE:10/13/21 TIME: 2014 PATIENT: RAMA EDGAR UNIT #: [id number]#: [id number] ROOM/BED:AGE: 31 SEX: F PCP PHYS: Fred Rider MDSERVICE AUTHOR: Tiarra Vick OIL DISPENSER * ALL edits or amendments must be made on the electronic/computer document * Tiarra Vick 10/13/21 2015:HPI-URI/Cough/Cold GeneralConfirmed Patient YesPatient Type New patientInitial Greet Date/Time 10/13/211829PCPno pcp PresentationChief Complaint Cough, non-productive, Nasal congestion, Sore throatHx Obtained From PatientOnset Occurred Days agoSymptom Duration Since onsetProgression since Onset UnchangedLocation ChestAssociated Other Pt denies other symptoms Free Text HPI NotesFree Text HPI [id number]-[id number] female presents with a 2-day history of cough, congestion, sore throat. She also reports some intermittent pain in her chest. She reports thatshe was exposed to multiple people at work who are positive for Covid. She has not been vaccinated for Covid. Review of Systems ROS StatementsAll systems rev neg except as marked. Basic Review of SystemsBasic ROS CV: No chest pain, : No dysuria/frequency, MS: No ext swelling/pain,HEM: No bleeding/bruising, PSYCH: NL thought content Focused Review of SystemsConstitutionalDenies: Fever. Ears/Nose/ThroatReports: Nasal congestion, Sore throat. RespiratoryReports: Cough, non-productive. Past Medical History - AdultStated Complaint COUGH, FEVER, SORE THROATAllergiesCoded Allergies:sulfamethoxazole (From BACTRIM) (Severe, HIVES 10/13/21)trimethoprim (From BACTRIM) (Severe, HIVES 10/13/21) Home MedicationsActive ScriptsPROMETHAZINE (PHENERGAN) 12.5 MG PO Q6H PRN VOMITING PROMETHAZINE (PHENERGAN) 12.5 MG PO Q6H PRN VOMITING #12 TABS Prov: 10/03/21 Pt reports no significant: Past medical historyAdditional Surgical HistoryI D ABSCESSFamily History:Reports: Diabetes, Hypertension. Alcohol Use Denies EtOH useDrug Use Denies recreational drugsSmoking status: Smoking status for patients 13 years old or older: Current every day smokerAmbulatory Status Independent Physical Exam Vital SignsVital SignsFirst Documented: Result Date Time Pulse Ox 100 10/13 1829 B/P 118/67 10/13 1829 B/P Mean 84 10/13 1829 Temp 36.8 10/13 1829 Pulse 87 10/13 1829 Resp 18 10/13 1829 Last Documented: Result Date Time Pulse Ox 100 10/13 1829 B/P 118/67 10/13 1829 B/P Mean 84 10/13 1829 Temp 36.8 10/13 1829 Pulse 87 10/13 1829 Resp 18 10/13 1829 Review of Vital Signs Reviewed, Vital signs normal Basic Physical ExamBasic PE HEAD: Atraumatic/NC, EYES: PERRL, conj clear, NECK: Supple, CV: Reg rate rhythm, ABD: Soft/non-tender, EXT: No gross abnormality, SKIN: No rashes,warm/dry, NEURO: alert oriented, NEURO: gross movement NL, PSYCH: NL thought content Focused PEGeneral/Const General/Const Awake, Alert, Well appearing, Not toxic appearingEyes Eyes PERRLEars/Nose/Throat Ears/Nose/Throat Airway patent, Mucous membranes moist, Pharynx NL, Tympanic membs NL, Ext aud canal NL, Nose exam NL, No sinus tenderness Text/Dict Notesnasal congestionslightly hoarse voiceMS Neck Neck Supple, No meningismus, Full range of motion, No adenopathy, No swelling, Non-tenderResp/Chest Respiratory/Chest Breath sounds NL, Breath sounds = bilat, No respiratory distress, No rales, No rhonchi, No wheezing, No retractions, No stridorCardiovascular Cardiovascular Heart rate NL, Regular rhythm, Heart sounds NL, Peripheral circulation NLAbdomen/GI Abdomen/GI Soft, Non-tender, No guarding, No reboundSkin Skin Color NL, No rash, Warm, Dry, Turgor NLNeurologic Neurologic Oriented X3, Speech NL, No motor deficits, No sensory deficits Interpretation Diagnostics Lab Results InterpretationResultsLaboratory Tests: 10/13 Serology SARS-CoV-2 Ag (Rapid) (NEGATIVE) NEGATIVE Streptococcus sp PCR (NEGATIVE) NEGATIVE FOR G/C Strep pneumoniae (PCR) (NEGATIVE) NEGATIVE FOR GRP A Microbiology: Date/Time Procedure - Status Source Growth 10/13 2107 Group A Streptococcus Screen (BETTY) - COMP THROAT 10/13 2107 Influenza Virus Type B Antigen - COMP NASAL 10/13 2107 Influenza Virus Type A Antigen - COMP NASAL Lab StatementLaboratory studies reviewed and considered in the medical decision-making. Point of Care TestingPulse Oximetry Pulse Ox % 100 On: Room air Interpretation Interpreted by me Time 1829 ECG #1 InterpretationDate 10/13/21Time 1835Interpreted by and reviewed by me, ED physicianNL ECG Interpretation Normal rate, Normal sinus rhythm, No acute ischemic changes, No STEMI, Adequate tracingRate 75 Patient Discharge Departure Vital Signs/ConditionVital SignsFirst Documented: Result Date Time Pulse Ox 100 10/13 1829 B/P 118/67 10/13 1829 B/P Mean 84 10/13 1829 Temp 36.8 10/13 1829 Pulse 87 10/13 1829 Resp 18 10/13 1829 Last Documented: Result Date Time Pulse Ox 100 10/13 1829 B/P 118/67 10/13 1829 B/P Mean 84 10/13 1829 Temp 36.8 10/13 1829 Pulse 87 10/13 1829 Resp 10/13 All vital signs available at the time of this entry have been reviewed. Condition Stable Clinical ImpressionClinical ImpressionPrimary Impression: URI (upper respiratory infection) Disposition DecisionDischarge )( Discharged to Home Yes )( Time 2131 )( Date 10/13/21 Discharge/Care PlanCounseled Regarding Diagnosis, Lab results, Need for follow-up, When to return to EDPatient Instructions ED URI, Viral, No Abx (Adult)Departure FormsFREE OR LOW COST CLINICS Discharge NoteI have spoken with the patient and/or caregivers. I have explained the patient'scondition, diagnoses and treatment plan based on the information available to meat this time. I have answered the patient's and/or caregiver's questions and addressed any concerns. The patient and/or caregivers have as good an understanding of the patient's diagnosis, condition and treatment plan as can beexpected at this point. The vital signs have been stable. The patient's condition is stable and appropriate for discharge from the emergency department. The patient will pursue further outpatient evaluation with the primary care physician or other designated or consulting physician as outlined in the discharge instructions. The patient and/or caregivers are agreeable to this planof care and follow-up instructions have been explained in detail. The patient and/or caregivers have received these instructions in written format and have expressed an understanding of the discharge instructions. The patient and/or caregivers are aware that any significant change in condition or worsening of symptoms should prompt an immediate return to this or the closest emergency department or a call to 911. Quality MeasuresBP F/U for HTN BP in normal rangeApprop Tx for URI 3 months or older, Dx upper resp infection, Abx not givenSmoking Cessation Screened, tobacco user, Tobacco cess intervention Diego Galvan 10/14/21 2144:Patient Discharge Departure Supervising Physician Note MidLv Saw Pt AloneI have reviewed the PA/OIL DISPENSER's note and plan of care. I was available for consultation as needed at all times during the patient's visit in the emergency department. I agree with the clinical impression, plan and disposition. at 1112 at 2144RPT #:[id number] OF REPORTEDEmergency department [id number]:15:00V.[id number] ilable for patient [id number]:13:00 [facility] 2021-10-03 10:00:00 [id number]:00:00 [facility] ([facility])EMERGENCY PROVIDER REPORTREPORT#:[id number] REPORT STATUS: SignedDATE:10/03/21 TIME: 1000 PATIENT: RAMA DEGAR UNIT #: [id number]#: [id number] ROOM/BED:AGE: 31 SEX: F PCP PHYS: Fred Rider MDSERVICE AUTHOR: Cristofer Valentin MD * ALL edits or amendments must be made on the electronic/computer document * HPI-Abd Pain F Under 40 GeneralInitial Greet Date/Time 10/03/21 0937 PresentationChief Complaint Vomiting mildSudden in Onset? NoOnset Occurred Days ago (3)Severity: Onset ModerateSeverity: Current MildExacerbated by Nothing Free Text HPI NotesFree Text HPI [id number]-fnry-ngz female with a history of chronic headaches complains of nausea and vomiting for the past 3 days. She also complains of nasal congestion and generalized weakness. She was exposed to COVID 4 days ago. She complains of a mild headache but states it is better than it usually is. Denies cough, sore throat, chest pain, shortness of breath, abdominal pain, diarrhea, dysuria. Risk-Abd Pain F Under 40)( Ectopic Risk factors reviewed Review of Systems ROS StatementsAll systems rev neg except as marked. Focused Review of SystemsConstitutionalReports: Fatigue. Denies: Chills, Fever. RespiratoryDenies: Cough, non-productive, Cough, productive. GIReports: Nausea, Vomiting. Denies: Diarrhea. FemaleDenies: Dysuria. Additional Review of SystemsNeurologicReports: Generalized weakness, Headache. Denies: Dizziness, Focal weakness, Lightheaded, Numbness. Past Medical History - AdultStated Complaint PUI FEVERAllergiesCoded Allergies:sulfamethoxazole (From BACTRIM) (Severe, HIVES 08/13/21)trimethoprim (From BACTRIM) (Severe, HIVES 08/13/21) Home MedicationsDiscontinued ScriptsAZITHROMYCIN (Z-FLORES) 250 MG PO ASDIR AZITHROMYCIN (Z-FLORES) 250 MG PO ASDIR #6 TABS Prov: 08/23/21 DC: 10/03/21 1029 Therapy completedBENZONATATE (TESSALON) 200 MG PO Q8H PRN PRN COUGH BENZONATATE (TESSALON) 200 MG PO Q8H PRN PRN COUGH #20 CAPS Prov: 08/23/21 DC: 10/03/21 1029 Therapy completedALBUTEROL (PROAIR HFA 90 MCG/ACT 8.5 GM) 2 PUFF INH RTQ4H PRN PRN DYSPNEA/WHEEZING ALBUTEROL (PROAIR HFA 90 MCG/ACT 8.5 GM) 2 PUFF INH RTQ4H PRN PRN DYSPNEA/WHEEZING #8.5 GM Prov: 08/23/21 DC: 10/03/21 1029 Therapy completedONDANSETRON ODT (ZOFRAN ODT) 4 MG PO Q6H PRN PRN NAUSEA/VOMITING ONDANSETRON ODT (ZOFRAN ODT) 4 MG PO Q6H PRN PRN NAUSEA/VOMITING #15 TABS Prov: 09/15/21 DC: 10/03/21 1029 Therapy completedBENZONATATE (TESSALON) 200 MG PO Q8H PRN PRN COUGH BENZONATATE (TESSALON) 200 MG PO Q8H PRN PRN COUGH #20 CAPS Prov: 09/15/21 DC: 10/03/21 1029 Therapy completedACETAMINOPHEN (TYLENOL) 500 MG PO ASDIR ACETAMINOPHEN (TYLENOL) 500 MG PO ASDIR #24 TABS Prov: 09/15/21 DC: 10/03/21 1029 Therapy completed Discontinued Reported MedicationsACETAMINOPHEN (TYLENOL) 500 MG PO Q4H PRN PRN PAIN Additional Surgical HistoryI D ABSCESSFamily History:Reports: Diabetes, Hypertension. Alcohol Use Denies EtOH useDrug Use Denies recreational drugsSmoking status: Smoking status for patients 13 years old or older: Never Smoker Physical Exam Vital SignsVital SignsFirst Documented: Result Date Time Pulse Ox 100 10/03 937 B/P 105/53 10/03 937 B/P Mean 70 10/03 937 O2 Delivery Room air 10/03 937 Temp 36.4 10/03 937 Pulse 74 10/03 937 Resp 16 10/03 937 Last Documented: Result Date Time Pulse Ox 100 10/03 1205 B/P 108/60 10/03 120 B/P Mean 76 10/03 120 O2 Delivery Room air 10/03 120 Temp 36.4 10/03 120 Pulse 61 10/03 1205 Resp 16 10/03 1205 Review of Vital Signs Reviewed Focused PEGeneral/Const General/Const Awake, Alert, No acute distressEyes Eyes PERRL, EOMI, No nystagmus, No periorbital redness Text/Dict NotesPupils 3 mm and reactive bilaterallyEars/Nose/Throat Ears/Nose/Throat Airway patent, Mucous membranes moist, Pharynx NL, Tympanic membs NL Text/Dict NotesNasal congestionResp/Chest Respiratory/Chest Breath sounds NL, Breath sounds = bilat, No respiratory distressCardiovascular Cardiovascular Heart rate NL, Regular rhythm, Heart sounds NLAbdomen/GI Abdomen/GI Soft, Non-tender, McBurney's non-tender, No guarding, No reboundMS Back Back Full range of motion, Painless range of motion, Non-tenderSkin Skin Color NL, No rash, Warm, Dry, IntactNeurologic Neurologic Oriented X3, Speech NL, No motor deficits, No sensory deficits, CNII - XII intact, Cerebellar NL, Gait NL Interpretation Diagnostics Lab Results InterpretationResultsLaboratory Tests: 10/03 10/03 1009 1009 Serology SARS-CoV-2 Ag (Rapid) (NEGATIVE) NEGATIVE Urines Urine Color (YELLOW) YELLOW Urine Appearance (CLEAR) hazy Urine pH (5.0 - 8.0) 7.0 Ur Specific Avilla (1.001 - 1.035) 1.010 Urine Protein (Neg - 15 mg/dL) neg Urine Glucose (UA) (NEGATIVE mg/dL) norm Urine Ketones (NEGATIVE mg/dL) neg Urine Blood (NEGATIVE Bill/uL) neg Urine Nitrite (NEGATIVE) NEGATIVE Urine Bilirubin (NEGATIVE mg/dL) NEGATIVE Urine Urobilinogen (0.0 - 0.2 mg/dL) norm Ur Leukocyte Esterase (NEGATIVE uL) 25 Darlyn/uL (Trace) H Urine RBC (0 - 5 per HPF) 0-3 Urine WBC (0 - 5 per HPF) 0-5 Ur Epithelial Cells (Few per HPF) Few (2-5/hpf) Urine Bacteria (NONE per HPF) FEW Urine HCG, Qual NEGATIVE Lab StatementLaboratory studies reviewed and considered in the medical decision-making. Point of Care TestingPulse Oximetry Pulse Ox % 100 On: Room air Interpretation Interpreted by il, Pulse oximetry normal Time 1004 Re-Evaluation MDM )( Re-Evaluation/Progress #1Text/Dict NotePatient is resting comfortably and in no acute distress. She is feeling better after Zofran. She has not had any vomiting in the ER. Abdomen is soft and nontender and she is tolerating p.o. well. She was given return precautions andvoiced understanding.Time of Re-Eval 1143)( Re-Eval Status Improved ED CourseMedication(s) OrderedMedication(s) Ordered:Electrolytic, Caloric, And Kush Sig/Ike Start time Last Medication Dose Route Stop Time Status Admin Sodium Chloride 1,000 ML X1ED STA 10/03 0957 CAN IV 10/03 1056 Gastrointestinal Drugs Sig/Ike Start time Last Medication Dose Route Stop Time Status Admin Ondansetron Base 4 MG X1ED STA 10/03 0859 DC 10/03 SL 10/03 1000 1014 Ondansetron HCl 4 MG X1ED STA 10/03 956 CAN IV 10/03 957 Patient Discharge Departure Vital Signs/ConditionVital SignsFirst Documented: Result Date Time Pulse Ox 100 10/03 0938 B/P 105/53 10/03 09 B/P Mean 70 10/03 0838 O2 Delivery Room air 10/03 937 Temp 36.4 10/03 09 Pulse 74 10/03 09 Resp 16 10/03 09 Last Documented: Result Date Time Pulse Ox 100 10/03 1205 B/P 108/60 10/03 1205 B/P Mean 76 10/03 1205 O2 Delivery Room air 10/03 1205 Temp 36.4 10/03 1205 Pulse 61 10/03 1205 Resp 16 10/03 1205 All vital signs available at the time of this entry have been reviewed. Condition Stable, Improved Clinical ImpressionClinical ImpressionPrimary Impression: VomitingSecondary Impressions: HeadacheTime of Impression 1143 Disposition DecisionDischarge )( Discharged to Home Yes )( Time 1143 )( Date 10/03/21 Discharge/Care PlanCounseled Regarding Diagnosis, Lab results, Prescriptions, Need for follow-up, When to return to ED(Auto) PrescriptionsCurrent Visit ScriptsPROMETHAZINE (PHENERGAN) 12.5 MG PO Q6H PRN VOMITING PROMETHAZINE (PHENERGAN) 12.5 MG PO Q6H PRN VOMITING #12 TABS Patient Instructions ED Headache Unspecified, ED Vomiting (Adult)Additional InstructionsFollow-up with your PCP in 2 to 3 days Quality MeasuresBP F/U for HTN BP in normal rangeSmoking Cessation Screened, tobacco user, Tobacco cess intervention Smoking Cessation CounselingThe patient was questioned regarding their smoking habits, and I have determined, as the patient's treating physician, that there is a medical necessity in regards to the patient's medical condition to provide smoking cessation program education. The patient was advised to stop smoking and counseled for a period ofgreater than 3 minutes. The patient was instructed to follow up with a primary care physician for smoking cessation and given information regarding local smoking cessation programs in the area. The patient received detailed discharge instructions as to how to stop smoking. The patient expressed an understanding of the need to follow up and the plan for smoking cessation. at 1430RPT #:[id number] OF REPORTEDEmergen department [id number]:00:00V.[id number] ilable for patient [id number]:31:15 [facility] 2021-09-15 13:52:00 [id number]/[id number]:52:00 [facility] ([facility])EMERGENCY PROVIDER REPORTREPORT#:[id number] REPORT STATUS: SignedDATE:09/15/21 TIME: 1352 PATIENT: RAMA EDGAR UNIT #: [id number]#: [id number] ROOM/BED:AGE: 31 SEX: F PCP PHYS: Fred Rider MDSERVICE AUTHOR: Francoise Guidry OIL DISPENSER * ALL edits or amendments must be made on the electronic/computer document * Francoise Guidry 09/15/21 1352:BSW-Fza-Zcoa Illness Free Text HPI NotesFree Text HPI Usebl42-bxzu-hqv female who denies PMH presents for fever, sore throat, nasal congestion, headaches, body aches x5 days. She reports being exposed to her sister who is positive for influenza. She denies chest pain/shortness of breath/dizziness/palpitations. Lungs clear bilaterally. No respiratory distress. Patient reports nausea but denies abdominal pain/vomiting/diarrhea. Abdomen soft, nontender. GeneralConfirmed Patient YesPatient Type New patientInitial Greet Date/Time 09/15/21 1331 PresentationChief Complaint Body aches, Chills, Cough, Fever, Headache, Nasal congestion, Nausea, Sore throatHx Obtained From PatientOnset Occurred Days agoSymptom Duration Since onsetProgression since Onset Waxes and wanesContext of Onset Known contact, familyLocation BODY ACHESSeverity: Onset MildSeverity: Current Mild ContextImmunization Status General All up to date Review of Systems ROS StatementsAll systems rev neg except as marked. Focused Review of SystemsConstitutionalReports: Chills, Fever, Malaise. Ears/Nose/ThroatReports: Nasal congestion. RespiratoryReports: Cough, non-productive. GIReports: Nausea. Past Medical History - AdultStated Complaint COUGH, SORE THROATAllergiesCoded Allergies:sulfamethoxazole (From BACTRIM) (Severe, HIVES 08/13/21)trimethoprim (From BACTRIM) (Severe, HIVES 08/13/21) Home MedicationsActive ScriptsAZITHROMYCIN (Z-FLORES) 250 MG PO ASDIR AZITHROMYCIN (Z-FLORES) 250 MG PO ASDIR #6 TABS Prov: 08/23/21BENZONATATE (TESSALON) 200 MG PO Q8H PRN PRN COUGH BENZONATATE (TESSALON) 200 MG PO Q8H PRN PRN COUGH #20 CAPS Prov: 08/23/21ALBUTEROL (PROAIR HFA 90 MCG/ACT 8.5 GM) 2 PUFF INH RTQ4H PRN PRN DYSPNEA/WHEEZING ALBUTEROL (PROAIR HFA 90 MCG/ACT 8.5 GM) 2 PUFF INH RTQ4H PRN PRN DYSPNEA/WHEEZING #8.5 GM Prov: 08/23/21 Reported MedicationsACETAMINOPHEN (TYLENOL) 500 MG PO Q4H PRN PRN PAIN Calculated Suicide Risk (nurs) No riskPt reports no significant: Past medical history, Past surgical historyAdditional Surgical HistoryI D ABSCESSFamily History:Reports: Diabetes, Hypertension. Alcohol Use Denies EtOH useDrug Use Denies recreational drugsSmoking status: Smoking status for patients 13 years old or older: Current every day smoker Physical Exam Vital SignsVital SignsFirst Documented: Result Date Time Pulse Ox 100 09/15 1333 B/P 121/78 09/15 1333 B/P Mean 92 09/15 1333 O2 Delivery Room air 09/15 1333 Temp 36.8 09/15 1333 Pulse 89 09/15 1333 Resp 15 09/15 1333 Last Documented: Result Date Time Pulse Ox 100 09/15 1422 B/P 119/74 09/15 1422 B/P Mean 89 09/15 1422 O2 Delivery Room air 09/15 1422 Temp 36.8 09/15 1422 Pulse 81 09/15 1422 Resp 16 09/15 1422 Review of Vital Signs Reviewed Free Text PE NotesFree Text PE NotesGeneral/Const General/Const Awake, Alert, No acute distress, Well appearing, Well developed, Well hydrated, Well nourished, Cooperative, Not toxic appearingMS Head Head NormocephalicEyes Eyes PERRL, EOMIEars/Nose/Throat Ears/Nose/Throat Airway patent, Mucous membranes moist, Tympanic membs NL, clear nasal drainage, pharynx erythematous (cobblestone appearance)Resp/Chest Respiratory/Chest Breath sounds NL, Breath sounds = bilat, No respiratory distressCardiovascular Cardiovascular Heart rate NL, Regular rhythm, Heart sounds NLAbdomen/GI Abdomen/GI Soft, Non-tender, No guarding, No rebound, BS normoactive, No distentionSkin Skin Color NL, No rash, Warm, DryNeurologic Alert Oriented X3, Speech NL, No motor deficits, No sensory deficits, CN II- XII intact, Reflexes equal bilat, Cerebellar NL, Memory NL, Gait NL Interpretation Diagnostics Lab Results InterpretationResultsLaboratory Tests: 09/15 134 Serology SARS-CoV-2 Ag (Rapid) (NEGATIVE) NEGATIVE Microbiology: Date/Time Procedure - Status Source Growth 09/15 1341 Influenza Virus Type B Antigen - COMP NASAL 09/15 1341 Influenza Virus Type A Antigen - COMP NASAL Lab StatementLaboratory studies reviewed and considered in the medical decision-making. Point of Care TestingMicro Interpretation Influenza rapid - negPulse Oximetry Pulse Ox % 100 On: Room air Interpretation Interpreted by il Time 1335 Re-Evaluation MDM Free Text MDM NotesFree Text MDM NotesReviewed lab results with patient. Covid and flu negative. Suspect symptoms of benign etiology, likely viral source. On thorough history and physical exam,no evidence of malignant process nor bacterial infection. Patient is well-hydrated based on history and exam. Therefore patient is appropriate for outpatient care, prompt follow-up with PCP, and discussed return precautions with patient. Patient Discharge Departure Vital Signs/ConditionVital SignsFirst Documented: Result Date Time Pulse Ox 100 09/15 1333 B/P 121/78 09/15 1333 B/P Mean 92 09/15 1333 O2 Delivery Room air 09/15 1333 Temp 36.8 09/15 1333 Pulse 89 09/15 1333 Resp 15 09/15 1333 Last Documented: Result Date Time Pulse Ox 100 09/15 1422 B/P 119/74 09/15 1422 B/P Mean 89 09/15 1422 O2 Delivery Room air 09/15 1422 Temp 36.8 09/15 1422 Pulse 81 09/15 1422 Resp 16 09/15 1422 All vital signs available at the time of this entry have been reviewed. Condition Stable Clinical ImpressionClinical ImpressionPrimary Impression: Viral syndrome Disposition DecisionDischarge )( Discharged to Home Yes )( Time 1413 )( Date 09/15/21 Discharge/Care PlanCounseled Regarding Diagnosis(Auto) PrescriptionsCurrent Visit ScriptsONDANSETRON ODT (ZOFRAN ODT) 4 MG PO Q6H PRN PRN NAUSEA/VOMITING ONDANSETRON ODT (ZOFRAN ODT) 4 MG PO Q6H PRN PRN NAUSEA/VOMITING #15 TABS BENZONATATE (TESSALON) 200 MG PO Q8H PRN PRN COUGH BENZONATATE (TESSALON) 200 MG PO Q8H PRN PRN COUGH #20 CAPS ACETAMINOPHEN (TYLENOL) 500 MG PO ASDIR ACETAMINOPHEN (TYLENOL) 500 MG PO ASDIR #24 TABS Follow label instructions for pain or fever. Prescriptions Reviewed Risks, Benefits, Alternative treatmentPatient Instructions ED Viral Syndrome (Adult)Referrals PRIMARY CARE [facility] - Medical Discharge NoteI have spoken with the patient and/or caregivers. I have explained the patient'scondition, diagnoses and treatment plan based on the information available to meat this time. I have answered the patient's and/or caregiver's questions and addressed any concerns. The patient and/or caregivers have as good an understanding of the patient's diagnosis, condition and treatment plan as can beexpected at this point. The vital signs have been stable. The patient's condition is stable and appropriate for discharge from the emergency department. The patient will pursue further outpatient evaluation with the primary care physician or other designated or consulting physician as outlined in the discharge instructions. The patient and/or caregivers are agreeable to this planof care and follow-up instructions have been explained in detail. The patient and/or caregivers have received these instructions in written format and have expressed an understanding of the discharge instructions. The patient and/or caregivers are aware that any significant change in condition or worsening of symptoms should prompt an immediate return to this or the closest emergency department or a call to 911. Quality MeasuresBP F/U for HTN BP in normal rangeTobacco Screening/Cessation 18 years or older, Tobacco user, Counseled 3-10 minutes Jr Gomez 09/16/21 1729:Patient Discharge Departure Supervising Physician Note MidLv Saw Pt AloneI have reviewed the PA/OIL DISPENSER's note and plan of care. I was available for consultation as needed at all times during the patient's visit in the emergency department. at 1550 at 1732RPT #:[id number] OF REPORTEDEmergen department [id number]:52:00V.[id number] ilable for patient emqsCXTPXQUVZQXKTE2261-48-59X93:51:03 [facility] 2021-08-23 12:08:00 [id number] RU/n7tYa57SSHj1LuzYGpOwnGmj3835-53-38D04:08:00 [facility] ([facility])EMERGENCY PROVIDER REPORTREPORT#:[id number] REPORT STATUS: SignedDATE:08/23/21 TIME: 1208 PATIENT: RAMA EDGAR UNIT #: [id number]#: [id number] ROOM/BED:AGE: 31 SEX: F PCP PHYS: Fred Rider MDSERVICE AUTHOR: Cheko Euceda MD * ALL edits or amendments must be made on the electronic/computer document * HPI-Sore Throat Free Text HPI NotesFree Text HPI [id number] female with no past medical history presents the ED with continued sore throat. Patient was seen here on 08/13/2021 and diagnosed with strep, put on amoxicillin. She states she is not feeling any better now she has a cough. Since her diagnosis she was also exposed to somebody with Covid. No shortness of breath, nausea, vomiting, abdominal pain. GeneralInitial Greet Date/Time 08/23/21 1200 PresentationChief Complaint Sore throat, cough Review of Systems ROS StatementsAll systems rev neg except as marked. Focused Review of SystemsEars/Nose/ThroatReports: Sore throat. RespiratoryReports: Cough, productive. Past Medical History - AdultStated Complaint COUGH, SORE THROATAllergiesCoded Allergies:sulfamethoxazole (From BACTRIM) (Severe, HIVES 08/13/21)trimethoprim (From BACTRIM) (Severe, HIVES 08/13/21) Home MedicationsDiscontinued ScriptsDICYCLOMINE (BENTYL) 10 MG PO Q6H PRN PRN ABDOMINAL PAIN/CRAMPING DICYCLOMINE (BENTYL) 10 MG PO Q6H PRN PRN ABDOMINAL PAIN/CRAMPING #30 CAPS Prov: 04/15/21 DC: 08/23/21 1259 Therapy completedFAMOTIDINE (PEPCID) 20 MG PO BID FAMOTIDINE (PEPCID) 20 MG PO BID #20 TABS Prov: 04/15/21 DC: 08/23/21 1259 Therapy completedAMOXICILLIN (AMOXIL) 875 MG PO Q12HR AMOXICILLIN (AMOXIL) 875 MG PO Q12HR #20 TABS Prov: 08/13/21 DC: 08/23/21 1259 Therapy completed Additional Surgical HistoryI D ABSCESSFamily History:Reports: Diabetes, Hypertension. Alcohol Use Denies EtOH useDrug Use Denies recreational drugsSmoking status: Smoking status for patients 13 years old or older: Current every day smoker Physical Exam Vital SignsVital SignsFirst Documented: Result Date Time Pulse Ox 99 08/23 1200 B/P 129/96 08/23 1200 B/P Mean 107 08/23 1200 Temp 36.8 08/23 1200 Pulse 80 08/23 1200 Resp 18 08/23 1200 Last Documented: Result Date Time Pulse Ox 99 08/23 1200 B/P 129/96 08/23 1200 B/P Mean 107 08/23 1200 Temp 36.8 08/23 1200 Pulse 80 08/23 1200 Resp 18 08/23 1200 Review of Vital Signs Reviewed Focused PEGeneral/Const General/Const Awake, Alert, No acute distress, Cooperative, Not toxic appearing Appearance/Presentation Ill appearing/not toxic. Ears/Nose/Throat Ears/Nose/Throat Airway patent, No peritonsillar abscess, No pooling of secretions, No trismus, Tympanic membs NL Pharynx/Tonsils/Uvula Pharyngeal erythema. MS Neck Neck Atraumatic, No adenopathy, No swelling, No midline vertebral tendResp/Chest Respiratory/Chest Atraumatic, Breath sounds NL, No respiratory distress, No wheezing, No retractionsCardiovascular Cardiovascular Heart rate NL, Regular rhythm, Heart sounds NL, Cap refill notdelayed, Peripheral circulation NLAbdomen/GI Abdomen/GI Atraumatic, Soft, Non-tender, McBurney's non-tenderNeurologic Neurologic Oriented X3, Speech NL, No motor deficits, No sensory deficits Interpretation Diagnostics Lab Results InterpretationResultsLaboratory Tests: 08/23 1209 Serology SARS-CoV-2 Ag (Rapid) (NEGATIVE) NEGATIVE Microbiology: Date/Time Procedure - Status Source Growth 08/23 121 Influenza Virus Type B Antigen - COMP NASAL 08/23 121 Influenza Virus Type A Antigen - COMP NASAL Lab StatementLaboratory studies reviewed and considered in the medical decision-making. Point of Care TestingPulse Oximetry Pulse Ox % 99 On: Room air Interpretation Interpreted by il, Pulse oximetry normal Time 1200 Re-Evaluation MDM ED CourseMedication(s) OrderedMedication(s) Ordered:Hormones And Synthetic Substit Sig/Ike Start time Last Medication Dose Route Stop Time Status Admin Prednisone 60 MG X1ED STA 08/23 1209 DC PO 08/23 1210 Patient Discharge Departure Vital Signs/ConditionVital SignsFirst Documented: Result Date Time Pulse Ox 99 08/23 1200 B/P 129/96 08/23 1200 B/P Mean 107 08/23 1200 Temp 36.8 08/23 1200 Pulse 80 08/23 1200 Resp 18 08/23 1200 Last Documented: Result Date Time Pulse Ox 99 08/23 1200 B/P 129/96 08/23 1200 B/P Mean 107 08/23 1200 Temp 36.8 08/23 1200 Pulse 80 08/23 1200 Resp 18 08/23 1200 All vital signs available at the time of this entry have been reviewed. Condition Stable, Improved Clinical ImpressionClinical ImpressionPrimary Impression: Strep pharyngitisSecondary Impressions: Bronchitis Disposition DecisionDischarge )( Discharged to Home Yes )( Time 1246 )( Date 08/23/21 Discharge/Care PlanCounseled Regarding Diagnosis, Lab results, Prescriptions, Need for follow-up, When to return to ED(Auto) PrescriptionsCurrent Visit ScriptsAZITHROMYCIN (Z-FLORES) 250 MG PO ASDIR AZITHROMYCIN (Z-FLORES) 250 MG PO ASDIR #6 TABS Take 2 tablets today, then 1 tablet daily thereafter for a total of 5 days of treatment. BENZONATATE (TESSALON) 200 MG PO Q8H PRN PRN COUGH BENZONATATE (TESSALON) 200 MG PO Q8H PRN PRN COUGH #20 CAPS ALBUTEROL (PROAIR HFA 90 MCG/ACT 8.5 GM) 2 PUFF INH RTQ4H PRN PRN DYSPNEA/WHEEZING ALBUTEROL (PROAIR HFA 90 MCG/ACT 8.5 GM) 2 PUFF INH RTQ4H PRN PRN DYSPNEA/WHEEZING #8.5 GM Patient Instructions ED Pharyngitis, Strep (Confirmed), ED Upper Resp Infec Abx TxReferrals PRIMARY CARE: 1-2 Days Discharge NoteI have spoken with the patient and/or caregivers. I have explained the patient'scondition, diagnoses and treatment plan based on the information available to meat this time. I have answered the patient's and/or caregiver's questions and addressed any concerns. The patient and/or caregivers have as good an understanding of the patient's diagnosis, condition and treatment plan as can beexpected at this point. The vital signs have been stable. The patient's condition is stable and appropriate for discharge from the emergency department. The patient will pursue further outpatient evaluation with the primary care physician or other designated or consulting physician as outlined in the discharge instructions. The patient and/or caregivers are agreeable to this planof care and follow-up instructions have been explained in detail. The patient and/or caregivers have received these instructions in written format and have expressed an understanding of the discharge instructions. The patient and/or caregivers are aware that any significant change in condition or worsening of symptoms should prompt an immediate return to this or the closest emergency department or a call to 911. Free Text Depart NotesFree Text Depart NotesPatient improved and stable for discharge home with outpatient follow-up. Warning signs and return precautions reviewed and all questions answered. at 1839RPT #:[id number] OF REPORTEDEmergency department [id number]:08:00V.[id number] ilable for patient aeglBEOBGXESOZSPXP9767-35-36E87:40:15 [facility] 2021-08-13 13:26:00 [id number] 2O+H2qMlqpynjqdF9kIpBpXVtKm3994-30-23B08:26:00 [facility] ([facility] PROVID[facility] REPORTREPORT#:[id number] REPORT STATUS: SignedDATE:08/13/21 TIME: 132 PATIENT: RAMA EDGAR UNIT #: [id number]#: [id number] ROOM/BED:AGE: 31 SEX: F PCP PHYS: Fred Rider MDSERVICE AUTHOR: Francoise Guidry OIL DISPENSER * ALL edits or amendments must be made on the electronic/computer document * Francoise Guidry 08/13/21 1326:WJX-Gzd-Hsum Illness Free Text HPI NotesFree Text HPI [id number]-pita-qnt female presents for fever, body aches, sore throat x3 days. Airway intact. No drooling or stridor. Lungs clear bilaterally. No respiratory distress. Patient nontoxic-appearing on exam. GeneralConfirmed Patient YesPatient Type New patientInitial Greet Date/Time 08/13/21 1316 PresentationChief Complaint Fatigue, Fever, Sore throatHx Obtained From PatientOnset Occurred Days agoSymptom Duration Since onsetSeverity: Onset MildSeverity: Current Mild ContextImmunization Status General All up to date Review of Systems ROS StatementsAll systems rev neg except as marked. Focused Review of SystemsConstitutionalReports: Fever, Malaise. Ears/Nose/ThroatReports: Sore throat. Past Medical History - AdultStated Complaint COUGH, FEVER, SORE THROATAllergiesCoded Allergies:sulfamethoxazole (From BACTRIM) (Severe, HIVES 08/13/21)trimethoprim (From BACTRIM) (Severe, HIVES 08/13/21) Home MedicationsActive ScriptsDICYCLOMINE (BENTYL) 10 MG PO Q6H PRN PRN ABDOMINAL PAIN/CRAMPING DICYCLOMINE (BENTYL) 10 MG PO Q6H PRN PRN ABDOMINAL PAIN/CRAMPING #30 CAPS Prov: 04/15/21FAMOTIDINE (PEPCID) 20 MG PO BID FAMOTIDINE (PEPCID) 20 MG PO BID #20 TABS Prov: 04/15/21 Calculated Suicide Risk (nurs) No riskPt reports no significant: Past medical historyAdditional Surgical HistoryI D ABSCESSFamily History:Reports: Diabetes, Hypertension. Alcohol Use Denies EtOH useDrug Use Denies recreational drugsSmoking status: Smoking status for patients 13 years old or older: Never Smoker Physical Exam Vital SignsVital SignsFirst Documented: Result Date Time Pulse Ox 98 08/13 1315 B/P 114/57 08/13 1315 B/P Mean 76 08/13 1315 Temp 36.5 08/13 1315 Pulse 62 08/13 1315 Resp 18 08/13 1315 O2 Delivery Room air 08/13 1447 Last Documented: Result Date Time Pulse Ox 99 08/13 1447 B/P 114/52 08/13 1447 B/P Mean 72 08/13 1447 O2 Delivery Room air 08/13 1447 Temp 36.7 08/13 1447 Pulse 65 08/13 1447 Resp 18 08/13 1447 Review of Vital Signs Reviewed Focused PEGeneral/Const General/Const Awake, Alert, Well appearing, Not toxic appearingEars/Nose/Throat Ears/Nose/Throat Airway patent, Mucous membranes moist, No peritonsillar abscess, Tympanic membs NL, Ext aud canal NL, Nose exam NL, No sinus tenderness Pharynx/Tonsils/Uvula Pharyngeal erythema, Tonsillar erythema R, Tonsillar erythema L, Tonsillar exudate R, Tonsillar exudate L, Tonsillar swelling R, Tonsillar swelling L. MS Neck Neck Supple, No meningismus, Full range of motion, No adenopathy, No swelling, Non-tender, No massesResp/Chest Respiratory/Chest Breath sounds NL, Breath sounds = bilat, No respiratory distress, No rales, No rhonchi, No wheezing, No retractionsCardiovascular Cardiovascular Heart rate NL, Regular rhythm, Heart sounds NL, No murmurs, Peripheral circulation NLSkin Skin Color NL, No rash, Warm, Dry, Turgor NLNeurologic Neurologic Oriented X3, Speech NL, No motor deficits, No sensory deficits Interpretation Diagnostics Lab Results InterpretationResultsLaboratory Tests: 08/13 1332 Serology SARS-CoV-2 Ag (Rapid) (NEGATIVE) NEGATIVE Microbiology: Date/Time Procedure - Status Source Growth 08/13 1332 Group A Streptococcus Screen (BETTY) - COMP THROAT 08/13 1332 Influenza Virus Type B Antigen - COMP NASAL 08/13 1332 Influenza Virus Type A Antigen - COMP NASAL Lab StatementLaboratory studies reviewed and considered in the medical decision-making. Point of Care TestingMicro Interpretation Strep rapid - posPulse Oximetry Pulse Ox % 98 On: Room air Interpretation Interpreted by il Time 1318 Re-Evaluation MDM Free Text MDM NotesFree Text MDM NotesReviewed lab results with patient. Covid and flu negative. Strep positive. Will start on oral antibiotics. Discussed need for follow-up with PCP. Return precautions given. The vital signs have been stable. The patient does not have uncontrollable pain, intractable vomiting, or other significant symptoms. The patient's condition is stable and appropriate for discharge. The patient will pursue further outpatient evaluation with the primary care physician or other designated or consulting physician as indicated in the discharge instructions. Patient Discharge Departure Vital Signs/ConditionVital SignsFirst Documented: Result Date Time Pulse Ox 98 08/13 1315 B/P 114/57 08/13 1315 B/P Mean 76 08/13 131 Temp 36.5 08/13 131 Pulse 62 08/13 1315 Resp 18 08/13 131 O2 Delivery Room air 08/13 1447 Last Documented: Result Date Time Pulse Ox 99 08/13 1447 B/P 114/52 08/13 1447 B/P Mean 72 08/13 1447 O2 Delivery Room air 08/13 1447 Temp 36.7 08/13 144 Pulse 65 08/13 144 Resp 18 08/13 144 All vital signs available at the time of this entry have been reviewed. Condition Stable Clinical ImpressionClinical ImpressionPrimary Impression: Strep pharyngitis Disposition DecisionDischarge )( Discharged to Home Yes )( Time 1445 )( Date 08/13/21 Discharge/Care PlanCounseled Regarding Diagnosis, Lab results, Prescriptions, Need for follow-up, When to return to ED(Auto) PrescriptionsCurrent Visit ScriptsAMOXICILLIN (AMOXIL) 875 MG PO Q12HR AMOXICILLIN (AMOXIL) 875 MG PO Q12HR #20 TABS Prescriptions Reviewed Risks, Benefits, Alternative treatmentPatient Instructions ED Scarlet Fever (Adult)[facility] - Medical Discharge NoteI have spoken with the patient and/or caregivers. I have explained the patient'scondition, diagnoses and treatment plan based on the information available to meat this time. I have answered the patient's and/or caregiver's questions and addressed any concerns. The patient and/or caregivers have as good an understanding of the patient's diagnosis, condition and treatment plan as can beexpected at this point. The vital signs have been stable. The patient's condition is stable and appropriate for discharge from the emergency department. The patient will pursue further outpatient evaluation with the primary care physician or other designated or consulting physician as outlined in the discharge instructions. The patient and/or caregivers are agreeable to this planof care and follow-up instructions have been explained in detail. The patient and/or caregivers have received these instructions in written format and have expressed an understanding of the discharge instructions. The patient and/or caregivers are aware that any significant change in condition or worsening of symptoms should prompt an immediate return to this or the closest emergency department or a call to 911. Quality MeasuresBP F/U for HTN BP in normal rangePharyngitis Testing 3 years or older, Dx strep pharyngitis, Antibiotic prescribed, Group A strep test docSmoking Cessation Screened, non user Cristofer Valentin V 08/13/21 1603:Patient Discharge Departure Supervising Physician Note MidLv Saw Pt AloneI have reviewed the PA/OIL DISPENSER's note and plan of care. I was available for consultation as needed at all times during the patient's visit in the emergency department. I agree with the clinical impression, plan and disposition. at 1451 at 1603RPT #:[id number] OF REPORTEDEmergency department [id number]:26:00V.[id number] ilable for patient glbpBYTXPMIPLOPONW0731-40-29W32:52:25 [facility] 2021-04-22 13:41:00 [id number] OE+[id number] WUSMXoMMODwNGBGHgtx3sbfGHHURGVbXGx9897-34-64J53:4 1:00 [facility] ([facility])EMERGENCY PROVIDER REPORTREPORT#:[id number] REPORT STATUS: SignedDATE:04/22/21 TIME: 1341 PATIENT: RAMA EDGAR UNIT #: [id number]#: [id number] ROOM/BED:AGE: 31 SEX: F PCP PHYS: Fred Rider MDSERVICE AUTHOR: Cristofer Valentin MD * ALL edits or amendments must be made on the electronic/computer document * HPI-Chest Pain Under 40 GeneralInitial Greet Date/Time 04/22/21 1318 PresentationChief Complaint Chest painSudden in Onset? NoOnset Occurred Days ago (3)Location SubsternalQuality SharpRadiationDoes not radiate. )( Migration/Movement NoneSeverity: Onset ModerateSeverity: Current Pain level 7 out of 10Exacerbated by Deep breath Free Text HPI NotesFree Text HPI [id number]-egfe-qnl female with a history of anxiety complains of substernal chest pain starting 3 days ago. For the past week, she has been having cough, rhinorrhea, and upper abdominal pain. She was seen here 1 week ago and had a normal right upper quadrant ultrasound. Chest pain is described as sharp, nonradiating, and exacerbated by deep breaths. She complains of shortness of breath. Denies nausea, vomiting, dizziness, fever, leg swelling. She states she has been exposed to her Covid positive sister since the last time she was here. She is requesting another Covid test. Risk-Chest Pain Under 40 Risk Stratification)( Coronary Artery Disease Risk factors reviewed)( Pulmonary Embolism Risk factors reviewed)( AMI-Aspirin Aspirin Last 24 Hrs None)( HEART for MACE )( HEART for MACE Response Value History Low index of suspicion 0 ECG Interpretation Nonspec repol disturb 1 Age Age under 45 0 Risk Factors for CAD No risk factors known 0 Troponin < or = to NL troponin 0 Total 1 Review of Systems ROS StatementsAll systems rev neg except as marked. Focused Review of SystemsConstitutionalDenies: Fever. RespiratoryReports: Cough, non-productive, Shortness of breath. CardiovascularReports: Chest pain. Past Medical History - AdultStated Complaint COUGH AND SOBAllergiesCoded Allergies:sulfamethoxazole (From BACTRIM) (Severe, HIVES 04/15/21)trimethoprim (From BACTRIM) (Severe, HIVES 04/15/21) Home MedicationsActive ScriptsDICYCLOMINE (BENTYL) 10 MG PO Q6H PRN PRN ABDOMINAL PAIN/CRAMPING DICYCLOMINE (BENTYL) 10 MG PO Q6H PRN PRN ABDOMINAL PAIN/CRAMPING #30 CAPS Prov: 04/15/21FAMOTIDINE (PEPCID) 20 MG PO BID FAMOTIDINE (PEPCID) 20 MG PO BID #20 TABS Prov: 04/15/21 Discontinued ScriptsLIDOCAINE (LIDOCAINE 2% VISCOUS) 15 ML PO Q3H PRN PRN PAIN LIDOCAINE (LIDOCAINE 2% VISCOUS) 15 ML PO Q3H PRN PRN PAIN #300 ML Prov: Taurus Kirk 09/01/20 DC: 04/22/21 1350 Therapy completed Pt reports no significant: Past medical history, Past surgical historyAdditional Surgical HistoryI D ABSCESSFamily History:Reports: Diabetes, Hypertension. Alcohol Use Denies EtOH useDrug Use Denies recreational drugsSmoking status: Smoking status for patients 13 years old or older: Never Smoker Physical Exam Vital SignsVital SignsFirst Documented: Result Date Time Pulse Ox 99 04/22 1315 B/P 106/70 04/22 1315 B/P Mean 82 04/22 1315 O2 Delivery Room air 04/22 1315 Temp 37.1 04/22 1315 Pulse 82 04/22 1315 Resp 16 04/22 1315 Last Documented: Result Date Time Pulse Ox 100 04/22 1456 B/P 100/59 04/22 1456 B/P Mean 72 04/22 1456 O2 Delivery Room air 04/22 145 Temp 37.0 04/22 145 Pulse 75 04/22 1456 Resp 16 04/22 145 Review of Vital Signs Reviewed Focused PEGeneral/Const General/Const Awake, Alert, No acute distressEyes Eyes PERRL, EOMI, No periorbital rednessMS Neck Neck Supple, No meningismus, Full range of motionResp/Chest Respiratory/Chest Breath sounds NL, Breath sounds = bilat, No respiratory distress Text/Dict NotesMild central chest wall tendernessCardiovascular Cardiovascular Heart rate NL, Regular rhythm, Heart sounds NLAbdomen/GI Abdomen/GI Soft, Non-tender, No guarding, No rebound, BS normoactiveMS Lower Extrem Lower Ext/Pelvis/MS No swelling, Non-tender, No erythemaSkin Skin Color NL, No rash, Warm, Dry, IntactNeurologic Neurologic Oriented X3, Speech NL, No motor deficits Interpretation Diagnostics Lab Results InterpretationResultsLaboratory Tests 04/22/21 1342:[Embedded Image Not Available]Laboratory Tests: 04/22 04/22 04/22 1342 1342 1341 Chemistry Sodium (135 - 148 mmol/L) 144 Potassium (3.5 - 5.1 mmol/L) 3.6 Chloride (101 - 109 mmol/L) 106 Carbon Dioxide (21 - 32 mmol/L) 27.1 Anion Gap (10 - 20 mmol/L) 15 BUN (3 - 21 mg/dL) 12 Creatinine (0.55 - 1.3 mg/dL) 0.65 Glomerular Filtr Rate (>=60 mL/min) > 60 BUN/Creatinine Ratio (10 - 20) 18.5 Glucose (74 - 106 mg/dL) 115 H Calcium (8.4 - 10.2 mg/dL) 8.0 L Total Bilirubin (0.0 - 1.0 mg/dL) 0.30 Direct Bilirubin (0.0 - 0.30 mg/dL) 0.10 AST (6 - 32 U/L) 12 ALT (12 - 78 U/L) 24 Total Alk Phosphatase (38 - 126 U/L) 99 Troponin I (0.00 - 0.056 ng/mL) <0.015 B-Natriuretic Peptide (0 - 100 pg/mL) 14.6 Total Protein (6.5 - 8.4 g/dL) 7.2 Albumin (3.4 - 4.8 g/dL) 3.4 Globulin (1 - 10 G/DL) 3.8 Albumin/Globulin Ratio (0.75 - 1.50 RATIO) 0.9 Lipase (128 - 270 U/L) 124 L Serum , Qual (NEGATIVE) NEGATIVE Coagulation D-Dimer (< 600 ng/ml) < 100 Hematology WBC (4.5 - 12.5 K/mm3) 8.1 RBC (3.7 - 5.2 mill/mm3) 3.85 Hgb (11.5 - 15.5 gram/dL) 12.0 Hct (36.0 - 46.0 %) 37.4 MCV (80 - 98 fL) 97.1 MCH (27.0 - 33.0 picogram) 31.2 MCHC (33.0 - 36.0 gram/dL) 32.1 L RDW (11.6 - 16.2 %) 13.6 RDW Std Deviation (37.0 - 51.0 fL) 48.8 Plt Count (150 - 450 K/mm3) 314 MPV (6.7 - 11.0 fL) 10.4 Serology SARS-CoV-2 Ag (Rapid) (NEGATIVE) NEGATIVE Recent Impressions:RADIOLOGY - XR CHEST 1 V 04/22 1429 Report Impression - Status: SIGNED Entered: 04/22/2021 1441 IMPRESSION:No acute cardiopulmonary process. Location: HCAImpression By: [email or web address] - Nikko Langford MD Lab Imaging StatementLaboratory radiographic studies reviewed and considered in the medical decision-making. Point of Care TestingPulse Oximetry Pulse Ox % 99 On: Room air Interpretation Interpreted by me, Pulse oximetry normal Time 1343 ECG #1 InterpretationDate 04/22/21Time 1322Interpreted by and reviewed by me, ED physicianNL ECG Interpretation Normal rate, Normal sinus rhythm, No acute ischemic changes, No STEMI, Normal ST waves, Normal T waves, Normal axis, Normal intervals, incomplete RBBB, NS T wave change V2Rate 73 Re-Evaluation MDM Re-Evaluation/Progress #1Text/Dict NotePatient is comfortable and in no acute distress. She may have pleurisy. I doubt ACS, PE, dissection. Patient given return precautions and voiced understanding.Time of Re-Eval 1451Re-Eval Status Improved Patient Discharge Departure Vital Signs/ConditionVital SignsFirst Documented: Result Date Time Pulse Ox 99 04/22 1315 B/P 106/70 04/22 1315 B/P Mean 82 04/22 1315 O2 Delivery Room air 04/22 1315 Temp 37.1 04/22 1315 Pulse 82 04/22 1315 Resp 16 04/22 1315 Last Documented: Result Date Time Pulse Ox 100 04/22 1456 B/P 100/59 04/22 1456 B/P Mean 72 04/22 1456 O2 Delivery Room air 04/22 1456 Temp 37.0 04/22 1456 Pulse 75 04/22 1456 Resp 16 04/22 1456 All vital signs available at the time of this entry have been reviewed. Condition Stable, Improved Clinical ImpressionClinical ImpressionPrimary Impression: Chest painSecondary Impressions: Pleurisy Disposition DecisionDischarge )( Discharged to Home Yes )( Time 1451 )( Date 04/22/21 Discharge/Care PlanCounseled Regarding Diagnosis, Lab results, Imaging studies, Need for follow-up,When to return to EDPatient Instructions ED Chest Pain, Uncertain Cause, ED PleurisyReferrals PRIMARY CARE: 2-3 Days Quality MeasuresBP F/U for HTN BP in normal rangeSmoking Cessation Screened, non user at 2125RPT #:[id number] OF REPORTEDEmergency department sssfmc1127-99-97R11:41:00V.[id number] ilable for patient cvatTJCDYCFDTJXYAE0625-26-15Y56:25:59 [facility] 2021-04-15 19:26:00 [id number] 2ImuB+jAxIRcT5e0gPJByGcUASc2t ARY6FNsUP1LfoYWccgByo09YYu/gLk1eIA0365-54-54K72:2 6:00 [facility] ([facility] PROVIDER REPORTREPORT#:[id number] REPORT STATUS: SignedDATE:04/15/21 TIME: 1925 PATIENT: RAMA EDGAR UNIT #: [id number]#: [id number] ROOM/BED:AGE: 31 SEX: F PCP PHYS: Fred Rider MDSERVICE AUTHOR: Jorge Luis Valencia MD * ALL edits or amendments must be made on the electronic/computer document * HPI-Abd Pain F Under 40 GeneralInitial Greet Date/Time 04/15/211812 PresentationChief Complaint Abdominal pain Free Text HPI NotesFree Text HPI Domdl59-gnxw-kkr female with no significant past medical history presents with epigastric pain and nausea for last 4 days. Pain radiates to the back and rightupper quadrant. Patient also is concerned about subjective fever, cough, congestion and wants to be checked for COVID-19. Denies any diarrhea, urinary symptoms. Currently on her menstrual period. Risk-Abd Pain F Under 40)( Ectopic Risk factors reviewed Review of Systems ROS StatementsAll systems rev neg except as marked. Focused Review of SystemsConstitutionalReports: Fever. Past Medical History - AdultStated Complaint ABDAllergiesCoded Allergies:sulfamethoxazole (From BACTRIM) (Severe, HIVES 04/15/21)trimethoprim (From BACTRIM) (Severe, HIVES 04/15/21) Home MedicationsActive ScriptsLIDOCAINE (LIDOCAINE 2% VISCOUS) 15 ML PO Q3H PRN PRN PAIN LIDOCAINE (LIDOCAINE 2% VISCOUS) 15 ML PO Q3H PRN PRN PAIN #300 ML Prov: Taurus Kirk 09/01/20 Review of Nursing Notes Rev avail, and agreeAdditional Surgical HistoryI D ABSCESSFamily History:Reports: Diabetes, Hypertension. Smoking status: Smoking status for patients 13 years old or older: Current every day smoker Physical Exam Vital SignsVital SignsFirst Documented: Result Date Time Pulse Ox 99 04/15 1820 B/P 104/62 04/15 1820 B/P Mean 76 04/15 1820 O2 Delivery Room air 04/15 1820 Temp 36.9 04/15 182 Pulse 77 04/15 1820 Resp 16 04/150 Last Documented: Result Date Time Pulse Ox 99 08/24 2104 B/P 113/67 04/15 2104 B/P Mean 82 04/15 2104 Pulse 80 04/15 2104 Resp 16 04/15 2104 O2 Delivery Room air 04/15 1820 Temp 36.9 04/15 1820 Review of Vital Signs Reviewed Focused PEGeneral/Const General/Const Awake, Alert, Well appearingMS Head Head NormocephalicEyes Eyes PERRLEars/Nose/Throat Ears/Nose/Throat Airway patent, Mucous membranes moist, Pharynx NLResp/Chest Respiratory/Chest Breath sounds NL, Breath sounds = bilat, No respiratory distress, No rales, No rhonchi, No wheezingCardiovascular Cardiovascular Heart rate NL, Regular rhythm, Heart sounds NL, Peripheral circulation NLAbdomen/GI Abdomen/GI Soft, Non-tender, McBurney's non-tender, No guarding, No rebound, BS normoactive, No distention, No hernia, No palpable massMS Back Back Inspection NL, Non-tender, No CVA tendernessSkin Skin Color NL, Warm, Dry, Turgor NLNeurologic Neurologic Oriented X3, Speech NL, No motor deficits, No sensory deficits Interpretation Diagnostics Lab Results InterpretationResultsLaboratory Tests 04/15/211923:[Embedded Image Not Available]Laboratory Tests: 04/15 Serology SARS-CoV-2 Ag (Rapid) (NEGATIVE) NEGATIVE Urines Urine Color (YELLOW) YELLOW Urine Appearance (CLEAR) HAZY H Urine pH (5.0 - 8.0) 6.0 Ur Specific [place] (1.001 - 1.035) 1.015 Urine Protein (Neg - 15 mg/dL) 30 (1+) H Urine Glucose (UA) (NEGATIVE mg/dL) norm Urine Ketones (NEGATIVE mg/dL) neg Urine Blood (NEGATIVE Bill/uL) 250 (4+) H Urine Nitrite (NEGATIVE) NEGATIVE Urine Bilirubin (NEGATIVE mg/dL) NEGATIVE Urine Urobilinogen (0.0 - 0.2 mg/dL) 1 H Ur Leukocyte Esterase (NEGATIVE uL) 25 Darlyn/uL (Trace) H Urine RBC (0 - 5 per HPF) 0-3 Urine WBC (0 - 5 per HPF) 0-5 Ur Epithelial Cells (Few per HPF) Few (2-5/hpf) Urine Bacteria (NONE per HPF) TRACE Urine HCG, Qual NEGATIVE 04/15 1924 Chemistry Sodium (136 - 145 mmol/L) 137 Potassium (3.5 - 5.1 mmol/L) 3.4 L Chloride (101 - 109 mmol/L) 104 Carbon Dioxide (21 - 32 mmol/L) 25.6 Anion Gap (10 - 20 mmol/L) 11 BUN (3 - 21 mg/dL) 11 Creatinine (0.55 - 1.3 mg/dL) 0.53 L Glomerular Filtr Rate (>=60 mL/min) > 60 BUN/Creatinine Ratio (10 - 20) 20.8 H Glucose (74 - 106 mg/dL) 89 Calcium (8.4 - 10.2 mg/dL) 7.3 L Total Bilirubin (0.0 - 1.0 mg/dL) 0.30 AST (6 - 32 U/L) 15 ALT (12 - 78 U/L) 18 Total Alk Phosphatase (38 - 126 U/L) 96 Total Protein (6.5 - 8.4 g/dL) 7.2 Albumin (3.4 - 4.8 g/dL) 3.6 Globulin (1 - 10 G/DL) 3.6 Albumin/Globulin Ratio (0.75 - 1.50 RATIO) 1.00 Lipase (128 - 270 U/L) 116 L Hematology WBC (4.5 - 12.5 K/mm3) 9.9 RBC (3.7 - 5.2 mill/mm3) 3.81 Hgb (11.5 - 15.5 gram/dL) 11.8 Hct (36.0 - 46.0 %) 37.7 MCV (80 - 98 fL) 99.0 H MCH (27.0 - 33.0 picogram) 31.0 MCHC (33.0 - 36.0 gram/dL) 31.3 L RDW (11.6 - 16.2 %) 13.6 RDW Std Deviation (37.0 - 51.0 fL) 50.0 Plt Count (150 - 450 K/mm3) 317 MPV (6.7 - 11.0 fL) 10.2 Neut % (Auto) (39.0 - 69.0 %) 67.1 Lymph % (Auto) (25.0 - 55.0 %) 25.5 [place] % (Auto) (0.0 - 10.0 %) 5.9 Eos % (Auto) (0.0 - 5.0 %) 1.1 Baso % (Auto) (0.0 - 1.0 %) 0.4 Neut # (Auto) (1.8 - 7.7 K/mm3) 6.65 Lymph # (Auto) (1.0 - 5.0 K/mm3) 2.52 [place] # (Auto) (0 - 0.8 K/mm3) 0.58 Eos # (Auto) (0.0 - 0.5 K/mm3) 0.11 Baso # (Auto) (0.0 - 0.2 K/mm3) 0.04 Add Manual Diff NO Recent Impressions:ULTRASOUND - US ABDOMEN LTD 04/15 1949 Report Impression - Status: SIGNED Entered: 04/15/20212020 IMPRESSION: Sonographically unremarkable abdomen. [facility] By: [email or web address] - Nikko aLngford MD Re-Evaluation MDM Free Text MDM NotesFree Text MDM NotesHistory, physical exam, risk factors, applicable clinical decisions scores, diagnostic and laboratory work-up not concerning for dangerous causes of abdominal pain including acute appendicitis, cholecystitis, pancreatitis, gastric outlet obstruction, cholangitis, bleeding peptic ulcer, small bowel obstruction, mesenteric ischemia, colitis, diverticulitis, urinary tract infection, renal colic, ectopic , pelvic inflammatory disease, tubo-ovarian abscess, miscarriage, molar , ovarian cyst torsion. patient hasbeen advised and agrees to follow-up with the personal or referred physician in 1 to 2 days and will return to the emergency room for any new or worsening or changing symptoms. )( Re-Evaluation/Progress #1)( Re-Eval Status Improved ED CourseMedication(s) OrderedMedication(s) Ordered:Central Nervous System Agents Sig/Ike Start time Last Medication Dose Route Stop Time Status Admin Ketorolac 15 MG X1ED STA 04/15 1925 DC 04/15 Tromethamine IV 04/15 Electrolytic, Caloric, And Kush Sig/Ike Start time Last Medication Dose Route Stop Time Status Admin Sodium Chloride 1,000 ML X1ED STA 04/15 1925 DC 04/15 IV 04/15 Patient Discharge Departure Vital Signs/ConditionVital SignsFirst Documented: Result Date Time Pulse Ox 99 04/15 1820 B/P 104/62 04/15 1820 B/P Mean 76 04/150 O2 Delivery Room air 04/15 1820 Temp 36.9 04/15 182 Pulse 77 04/15 1820 Resp 04/15 Last Documented: Result Date Time Pulse Ox 99 04/15 2104 B/P 113/67 04/15 2104 B/P Mean 82 04/15 2104 Pulse 80 04/15 2104 Resp 16 04/15 2104 O2 Delivery Room air 04/15 1820 Temp 36.9 04/15 1820 All vital signs available at the time of this entry have been reviewed. Clinical ImpressionClinical ImpressionPrimary Impression: Abdominal painSecondary Impressions: Lab test negative for COVID-19 virus Disposition DecisionDischarge )( Discharged to Home Yes )( Time 2036 )( Date 04/15/21 Discharge/Care Plan(Auto) PrescriptionsCurrent Visit ScriptsDICYCLOMINE (BENTYL) 10 MG PO Q6H PRN PRN ABDOMINAL PAIN/CRAMPING DICYCLOMINE (BENTYL) 10 MG PO Q6H PRN PRN ABDOMINAL PAIN/CRAMPING #30 CAPS FAMOTIDINE (PEPCID) 20 MG PO BID FAMOTIDINE (PEPCID) 20 MG PO BID #20 TABS Patient Instructions Abdominal PainReferralsSt. [facility]: 2-3 Days Quality MeasuresPreg Test for Women w/Abd Pain Female age 14-50, Complaint of abdominal pn, Any preg test orderedSmoking Cessation Screened, non user at 0019RPT #:[id number] OF REPORTEDEmergency department xortei4090-39-43V46:26:00V.[id number] ilable for patient dlnqSCXQAOYRRHLODM1863-49-52O50:19:31 [facility] 2020-09-01 04:29:00 [id number] K8GL+1YVkg1jpJR3MIINVGz7Q1hZJ +xcNaID0N2TUC9ogoi/kB4IeC3h2OIl9Df9120-86-47C97:2 9:00 [facility] ([facility])EMERGENCY PROVIDER REPORTREPORT#:[id number] REPORT STATUS: SignedDATE:09/01/20 TIME: 042 PATIENT: RAMA EDGAR UNIT #: [id number]#: [id number] ROOM/BED:AGE: 30 SEX: F PCP PHYS: No Primary or Family PhysicianSERVICE AUTHOR: Tl Mitchell OIL DISPENSER * ALL edits or amendments must be made on the electronic/computer document * HPI-Sore Throat GeneralInitial Greet Date/Time 09/01/20 0407 PresentationChief Complaint Sore throatHx Obtained From Patient Free Text HPI NotesFree Text HPI Hnwdp27-nlln-gdh female without significant past medical history presents to the ER with complaint of sore throat onset 3 days ago. She notes associated headache and general malaise. She denies any fever, chills, voice changes, drooling, chest pain, cough, shortness of breath, abdominal pain, N/V/D or any other symptoms. She has not taken any medications prior to arrival. Of note she saw care at [facility] 9 days ago for sore throat and was noted to have apothous ulcers to posterior palate. Review of Systems ROS StatementsAll systems rev neg except as marked. Focused Review of SystemsConstitutionalReports: Malaise. Ears/Nose/ThroatReports: Sore throat. NeurologicReports: Headache. Past Medical History - AdultStated Complaint HOT FLASHES SORE THROAT COUGH AND TIREDAllergiesCoded Allergies:No Known Allergies (08/23/20) Calculated suicide risk level: No riskAdditional Surgical HistoryI D ABSCESSFamily History:Reports: Diabetes, Hypertension. Alcohol Use Denies EtOH useDrug Use Denies recreational drugsSmoking status for patients 13 years old or older: Never Smoker Physical Exam Vital SignsVital SignsFirst Documented: Result Date Time Pulse Ox 99 09/01 0416 B/P 113/58 09/016 B/P Mean 76 09/01 415 O2 Delivery Room air 09/01 415 Temp 36.9 09/01 415 Pulse 80 09/01 415 Resp 16 09/01 415 Last Documented: Result Date Time Pulse Ox 99 09/01 0416 B/P 113/58 09/01 415 B/P Mean 76 09/01 415 O2 Delivery Room air 09/01 415 Temp 36.9 09/01 415 Pulse 80 09/01 415 Resp 16 09/01 415 Review of Vital Signs Reviewed Free Text PE NotesFree Text PE NotesGen: Well appearing, appears comfortable, cooperativeHead: Normocephalic, atraumatic No mastoid swelling or TTPNose: no nasal drainage or sinus TTPThroat: Moist mucous membranes, handling secretions. Airway patent. OP clear without exudates or petechia. No tonsillar edema or erythema. No adenopathyNeck: FROM, non-tender, no visible edema, no meningismusLungs: CTA all lobes. Respirations NL. No wheezing, No rhonchi, No dyspnea. No stridor or accessory muscle use. Heart/Chest: Regular rhythm, rate. No murmurs. No peripheral edema. No chest wall TTPAbd: Soft, non-tender, non-distended, no rebound, guarding, or peritoneal sxs. No palpable masses or pulsatile masses. Negative [place] Sign. [facility] PointExt: Gait steady, no obvious deformity. No peripheral edema. NVI.Back: Painless ROMNeuro: awake and alert, speech NL for age, behavior age-appropriate. Skin: color NL, normal temperature, intact, no visible rashes Interpretation Diagnostics Lab Results InterpretationResultsMicrobiology: Date/Time Procedure - Status Source Growth 09/01 408 Group A Streptococcus Screen (BETTY) - ORD THROAT 09/01 408 Influenza Virus Type B Antigen - ORD NASOPHARG 09/01 408 Influenza Virus Type A Antigen - ORD NASOPHARG Lab StatementLaboratory studies reviewed and considered in the medical decision-making. Re-Evaluation [facility] ED CourseMedication(s) OrderedMedication(s) Ordered:Central Nervous System Agents Sig/Ike Start time Last Medication Dose Route Stop Time Status Admin Ibuprofen 800 MG X1ED STA 09/01 408 DC 09/01 PO 09/01 409 0413 Eye, Ear, Nose And Throat (Een Sig/Ike Start time Last Medication Dose Route Stop Time Status Admin Dexamethasone 10 MG X1ED STA 09/01 407 DC 09/01 PO 09/01 408 0413 Patient Discharge Departure Vital Signs/ConditionVital SignsFirst Documented: Result Date Time Pulse Ox 99 09/01 0416 B/P 113/58 09/01 0416 B/P Mean 76 09/01 0416 O2 Delivery Room air 09/01 415 Temp 36.9 09/01 0416 Pulse 80 09/01 0416 Resp 16 09/01 0416 Last Documented: Result Date Time Pulse Ox 99 09/01 0416 B/P 113/58 09/01 0416 B/P Mean 76 09/01 0416 O2 Delivery Room air 09/016 Temp 36.9 09/01 0416 Pulse 80 09/01 0416 Resp 16 09/016 All vital signs available at the time of this entry have been reviewed. Condition Stable Discharge/Care PlanCounseled Regarding Diagnosis, Lab results, Prescriptions, Need for follow-up, When to return to EDAdditional InstructionsPlease seek medical attention or return to ER if symptoms persist despite treatment or if new or worsening symptoms develop. Please follow up with your pcp or recommended specialist within 1-3 days. at 0513RPT #:[id number] OF REPORTEDEmergency department qzwlja4641-80-17K42:29:00G.[id number] ilable for patient nffgAXGJOPYWICWKTI1519-88-54Q65:14:22 [facility] 2020-09-01 04:29:00 [id number] gF9/g4nWGZdRdhSgtS9JF2r6DT+be ORvzI1ujwn+spiEtJcgGr3r82wcYCNvuTb9487-47-33P78:2 9:00 [facility])EMERGENCY PROVIDER REPORTREPORT#:[id number] REPORT STATUS: SignedDATE:09/01/20 TIME: 428 PATIENT: RAMA EDGAR UNIT #: [id number]#: [id number] ROOM/BED:AGE: 30 SEX: F PCP PHYS: No Primary or Family PhysicianSERVICE AUTHOR: Tl Mitchell NP * ALL edits or amendments must be made on the electronic/computer document * Tl Mitchell 09/01/20 0429:HPI-Sore Throat PresentationChief Complaint Sore throatHx Obtained From Patient Free Text HPI NotesFree Text HPI Tuknc01-wqpr-jfj female without significant past medical history presents to the ER with complaint of sore throat onset 3 days ago. She notes associated headache and general malaise. She denies any fever, chills, voice changes, drooling, chest pain, cough, shortness of breath, abdominal pain, N/V/D or any other symptoms. She has not taken any medications prior to arrival. Of note she saw care at [facility] 9 days ago for sore throat and was noted to have apothous ulcers to posterior palate. Review of Systems ROS StatementsAll systems rev neg except as marked. Focused Review of SystemsConstitutionalReports: Malaise. Ears/Nose/ThroatReports: Sore throat. NeurologicReports: Headache. Past Medical History - AdultStated Complaint HOT FLASHES SORE THROAT COUGH AND TIREDAllergiesCoded Allergies:No Known Allergies (08/23/20) Calculated suicide risk level: No riskAdditional Surgical HistoryI D ABSCESSFamily History:Reports: Diabetes, Hypertension. Alcohol Use Denies EtOH useDrug Use Denies recreational drugsSmoking status for patients 13 years old or older: Never Smoker Physical Exam Vital SignsVital SignsFirst Documented: Result Date Time Pulse Ox 99 09/01 0416 B/P 113/58 09/01 0416 B/P Mean 76 09/01 0416 O2 Delivery Room air 09/01 415 Temp 36.9 09/01 0416 Pulse 80 09/01 0416 Resp 16 09/016 Last Documented: Result Date Time Pulse Ox 99 09/01 0416 B/P 113/58 09/01 0416 B/P Mean 76 09/01 0416 O2 Delivery Room air 09/01 415 Temp 36.9 09/01 0416 Pulse 80 09/01 0416 Resp 16 09/01 0416 Review of Vital Signs Reviewed Free Text PE NotesFree Text PE NotesGen: Well appearing, appears comfortable, cooperativeHead: Normocephalic, atraumatic No mastoid swelling or TTPNose: no nasal drainage or sinus TTPThroat: Moist mucous membranes, handling secretions. Airway patent. OP clear without exudates or petechia. No tonsillar edema or erythema. No adenopathyNeck: FROM, non-tender, no visible edema, no meningismusLungs: CTA all lobes. Respirations NL. No wheezing, No rhonchi, No dyspnea. No stridor or accessory muscle use. Heart/Chest: Regular rhythm, rate. No murmurs. No peripheral edema. No chest wall TTPAbd: Soft, non-tender, non-distended, no rebound, guarding, or peritoneal sxs. No palpable masses or pulsatile masses. Negative [place] Sign. No [facility] at [facility] PointExt: Gait steady, no obvious deformity. No peripheral edema. NVI.Back: Painless ROMNeuro: awake and alert, speech NL for age, behavior age-appropriate. Skin: color NL, normal temperature, intact, no visible rashes Interpretation Diagnostics Lab Results InterpretationResultsMicrobiology: Date/Time Procedure - Status Source Growth 09/01 429 Group A Streptococcus Screen (BETTY) - RES THROAT 09/01 429 Streptococcus Culture - RES THROAT 09/01 429 Influenza Virus Type B Antigen - COMP NASOPHARG 09/01 429 Influenza Virus Type A Antigen - COMP NASOPHARG Lab StatementLaboratory studies reviewed and considered in the medical decision-making. Re-Evaluation MDM ED CourseMedication(s) OrderedMedication(s) Ordered:Central Nervous System Agents Sig/Ike Start time Last Medication Dose Route Stop Time Status Admin Ibuprofen 800 MG X1ED STA 09/01 408 DC 09/01 PO 09/01 0410 0413 Eye, Ear, Nose And Throat (Een Sig/Ike Start time Last Medication Dose Route Stop Time Status Admin Dexamethasone 10 MG X1ED STA 09/01 407 DC 09/01 PO 09/01 0409 0413 Patient Discharge Departure Vital Signs/ConditionVital SignsFirst Documented: Result Date Time Pulse Ox 99 09/01 0416 B/P 113/58 09/01 0416 B/P Mean 76 09/016 O2 Delivery Room air 09/01 415 Temp 36.9 09/01 041 Pulse 80 09/01 0416 Resp 16 09/01 415 Last Documented: Result Date Time Pulse Ox 99 09/01 0416 B/P 113/58 09/01 0416 B/P Mean 76 09/01 0416 O2 Delivery Room air 09/01 415 Temp 36.9 09/01 415 Pulse 80 09/01 415 Resp 16 09/01 415 All vital signs available at the time of this entry have been reviewed. Condition Stable Discharge/Care PlanCounseled Regarding Diagnosis, Lab results, Prescriptions, Need for follow-up, When to return to EDAdditional InstructionsPlease seek medical attention or return to ER if symptoms persist despite treatment or if new or worsening symptoms develop. Please follow up with your pcp or recommended specialist within 1-3 days. Taurus Kirk 09/01/20926:HPI-Sore Throat GeneralInitial Greet Date/Time 09/01/20406 at 0513RPT #:[id number] OF REPORTEDEmergency department uotoxe9389-90-37X79:29:00G.[id number] ilable for patient tphnSDVERDVCUHPUOU6467-07-00F01:28:04 [facility] 2020-09-01 04:29:00 [id number] VlLZa5SUEl8QicHIgusUZMnRRnOYN Me5VZPrvAlmEevj7DXWmyXkai/Dd9zKxAl6418-94-16X62:2 9:00 [facility] [facility]EMERGENCY PROVIDER REPORTREPORT#:[id number] REPORT STATUS: SignedDATE:09/01/20 TIME: 428 PATIENT: RAMA EDGAR UNIT #: [id number]#: [id number] ROOM/BED:AGE: 30 SEX: F PCP PHYS: No Primary or Family PhysicianSERVICE AUTHOR: Tl Mitchell NP * ALL edits or amendments must be made on the electronic/computer document * Tl Mitchell 09/01/20428:HPI-Sore Throat PresentationChief Complaint Sore throatHx Obtained From Patient Free Text HPI NotesFree Text HPI [id number] female without significant past medical history presents to the ER with complaint of sore throat onset 3 days ago. She notes associated headache and general malaise. She denies any fever, chills, voice changes, drooling, chest pain, cough, shortness of breath, abdominal pain, N/V/D or any other symptoms. She has not taken any medications prior to arrival. Of note she saw care at [facility] 9 days ago for sore throat and was noted to have apothous ulcers to posterior palate. Review of Systems ROS StatementsAll systems rev neg except as marked. Focused Review of SystemsConstitutionalReports: Malaise. Ears/Nose/ThroatReports: Sore throat. NeurologicReports: Headache. Past Medical History - AdultStated Complaint HOT FLASHES SORE THROAT COUGH AND TIREDAllergiesCoded Allergies:No Known Allergies (08/23/20) Calculated suicide risk level: No riskAdditional Surgical HistoryI D ABSCESSFamily History:Reports: Diabetes, Hypertension. Alcohol Use Denies EtOH useDrug Use Denies recreational drugsSmoking status for patients 13 years old or older: Never Smoker Physical Exam Vital SignsVital SignsFirst Documented: Result Date Time Pulse Ox 99 09/01 0416 B/P 113/58 09/01 0416 B/P Mean 76 09/01 0416 O2 Delivery Room air 09/01 415 Temp 36.9 09/01 0416 Pulse 80 09/01 0416 Resp 16 09/01 0416 Last Documented: Result Date Time Pulse Ox 99 09/01 0416 B/P 113/58 09/01 0416 B/P Mean 76 09/01 0416 O2 Delivery Room air 09/016 Temp 36.9 09/01 0416 Pulse 80 09/01 0416 Resp 16 09/01 0416 Review of Vital Signs Reviewed Free Text PE NotesFree Text PE NotesGen: Well appearing, appears comfortable, cooperativeHead: Normocephalic, atraumatic No mastoid swelling or TTPNose: no nasal drainage or sinus TTPThroat: Moist mucous membranes, handling secretions. Airway patent. OP clear without exudates or petechia. No tonsillar edema or erythema. No adenopathyNeck: FROM, non-tender, no visible edema, no meningismusLungs: CTA all lobes. Respirations NL. No wheezing, No rhonchi, No dyspnea. No stridor or accessory muscle use. Heart/Chest: Regular rhythm, rate. No murmurs. No peripheral edema. No chest wall TTPAbd: Soft, non-tender, non-distended, no rebound, guarding, or peritoneal sxs. No palpable masses or pulsatile masses. Negative [place] Sign. No TTP at [place] PointExt: Gait steady, no obvious deformity. No peripheral edema. NVI.Back: Painless ROMNeuro: awake and alert, speech NL for age, behavior age-appropriate. Skin: color NL, normal temperature, intact, no visible rashes Interpretation Diagnostics Lab Results InterpretationResultsMicrobiology: Date/Time Procedure - Status Source Growth 09/01 429 Group A Streptococcus Screen (BTETY) - RES THROAT 09/01 429 Streptococcus Culture - RES THROAT 09/01 429 Influenza Virus Type B Antigen - COMP NASOPHARG 09/01 429 Influenza Virus Type A Antigen - COMP NASOPHARG Lab StatementLaboratory studies reviewed and considered in the medical decision-making. Re-Evaluation MDM ED CourseMedication(s) OrderedMedication(s) Ordered:Central Nervous System Agents Sig/Ike Start time Last Medication Dose Route Stop Time Status Admin Ibuprofen 800 MG X1ED STA 09/01 408 DC 09/01 PO 09/01 0410 0413 Eye, Ear, Nose And Throat (Een Sig/Ike Start time Last Medication Dose Route Stop Time Status Admin Dexamethasone 10 MG X1ED STA 09/018 DC 09/01 PO 09/01 0409 0413 Patient Discharge Departure Vital Signs/ConditionVital SignsFirst Documented: Result Date Time Pulse Ox 99 09/01 0416 B/P 113/58 09/01 0416 B/P Mean 76 09/01 0416 O2 Delivery Room air 09/01 415 Temp 36.9 09/01 0416 Pulse 80 09/01 0416 Resp 16 09/01 0416 Last Documented: Result Date Time Pulse Ox 99 09/01 0416 B/P 113/58 09/01 0416 B/P Mean 76 09/01 0416 O2 Delivery Room air 09/01 415 Temp 36.9 09/01 0416 Pulse 80 09/01 0416 Resp 16 09/01 0416 All vital signs available at the time of this entry have been reviewed. Condition Stable Discharge/Care PlanCounseled Regarding Diagnosis, Lab results, Prescriptions, Need for follow-up, When to return to EDAdditional InstructionsPlease seek medical attention or return to ER if symptoms persist despite treatment or if new or worsening symptoms develop. Please follow up with your pcp or recommended specialist within 1-3 days. Taurus Kirk 09/01/20 0927:HPI-Sore Throat GeneralInitial Greet Date/Time 09/01/20 0407 Re-Evaluation MDM Re-Evaluation/ProgressRe-Evaluation/Progress Text/Dict NotePatient resting comfortably, no changes nor new complaints reported, patient clinically remaining stable without any concerning changes/worsening during ED course here today. I explained the results of all of our findings here today with patient and answered all questions that patient had regarding their most likely diagnosis. I emphasized the need for close outpatient follow up and care from primary care provider and specialty team - provided information in order to do so as well. I went through careful and detailed return precautions with patient for when to come back to the emergency department sooner for repeat examination and evaluation. Patient expressed full understanding of such and agrees with plan for discharge today. Feel patient is stable and appropriate for discharge and ongoing management of condition at home at this time. Time of Re-Eval 929 Re-Eval Status Improved Patient Discharge Departure Clinical ImpressionClinical ImpressionPrimary Impression: Sore throatSecondary Impressions: Person under investigation for COVID-19 Disposition DecisionDischarge )( Discharged to Home Yes )( Time 09 )( Date 09/01/20 Discharge/Care Plan(Auto) PrescriptionsCurrent Visit ScriptsLIDOCAINE (LIDOCAINE 2% VISCOUS) 15 ML PO Q3H PRN PRN PAIN LIDOCAINE (LIDOCAINE 2% VISCOUS) 15 ML PO Q3H PRN PRN PAIN #300 ML Prescriptions Reviewed Risks, Benefits, Alternative treatmentPatient Instructions COVID-19 Home Care, ED Pharyngitis, ViralReferralsPRIMARY CARE: 2-3 DaysPLEASE FOLLOW UP WITH YOUR PRIMARY CARE PROVIDER IN THE NEXT 2-3 DAYS AT THE LATEST FOR REPEAT EVALUATION AND POSSIBLE ADDITIONAL TESTING AND/OR REFERRALS FOR YOUR CONDITION If you do not have a primary care provider please feel free to contact one of the following providers/options below: 1) Raymundo Ko MD [address] [facility] [address] [place] [address] 2) Augie Ross MD [address] [place] [address] 3) Alfred Valle MD [address] [place] [address] 4) [place] [address] [place] [address] 5) Evangelista Perez MD [address] [place] [address] at 0513RPT #:[id number] OF REPORTEDEmergency department [id number]:29:00G.[id number] ilable for patient bhlcMHBASXAGIRIFOL5265-75-82P12:31:24 [facility] 2020-09-01 04:29:00 [id number] sQgTj8/lmIDwhNPWnMq6hK++w54Jt [id number]+vsTsskyDDTW+zg7OtpRzhrpQ90+l1148-74-28Y95:2 9:00 [facility] ([facility])EMERGENCY PROVIDER REPORTREPORT#:[id number] REPORT STATUS: SignedDATE:09/01/20 TIME: 428 PATIENT: RAMA EDGAR UNIT #: [id number]#: [id number] ROOM/BED:AGE: 30 SEX: F PCP PHYS: No Primary or Family PhysicianSERVICE AUTHOR: Tl Mitchell NP * ALL edits or amendments must be made on the electronic/computer document * Tl Mitchell 09/01/20 0429:HPI-Sore Throat PresentationChief Complaint Sore throatHx Obtained From Patient Free Text HPI NotesFree Text HPI [id number] female without significant past medical history presents to the ER with complaint of sore throat onset 3 days ago. She notes associated headache and general malaise. She denies any fever, chills, voice changes, drooling, chest pain, cough, shortness of breath, abdominal pain, N/V/D or any other symptoms. She has not taken any medications prior to arrival. Of note she saw care at [facility] 9 days ago for sore throat and was noted to have apothous ulcers to posterior palate. Review of Systems ROS StatementsAll systems rev neg except as marked. Focused Review of SystemsConstitutionalReports: Malaise. Ears/Nose/ThroatReports: Sore throat. NeurologicReports: Headache. Past Medical History - AdultStated Complaint HOT FLASHES SORE THROAT COUGH AND TIREDAllergiesCoded Allergies:No Known Allergies (08/23/20) Calculated suicide risk level: No riskAdditional Surgical HistoryI D ABSCESSFamily History:Reports: Diabetes, Hypertension. Alcohol Use Denies EtOH useDrug Use Denies recreational drugsSmoking status for patients 13 years old or older: Never Smoker Physical Exam Vital SignsVital SignsFirst Documented: Result Date Time Pulse Ox 99 09/01 0416 B/P 113/58 09/01 0416 B/P Mean 76 09/01 0416 O2 Delivery Room air 09/01 041 Temp 36.9 09/01 041 Pulse 80 09/01 0416 Resp 16 09/01 0416 Last Documented: Result Date Time Pulse Ox 99 09/01 0940 B/P 124/80 09/01 0940 B/P Mean 94 09/01 0940 O2 Delivery Room air 09/01 09 Temp 37.1 09/01 0940 Pulse 74 09/01 0940 Resp 18 09/01 0940 Review of Vital Signs Reviewed Free Text PE NotesFree Text PE NotesGen: Well appearing, appears comfortable, cooperativeHead: Normocephalic, atraumatic No mastoid swelling or TTPNose: no nasal drainage or sinus TTPThroat: Moist mucous membranes, handling secretions. Airway patent. OP clear without exudates or petechia. No tonsillar edema or erythema. No adenopathyNeck: FROM, non-tender, no visible edema, no meningismusLungs: CTA all lobes. Respirations NL. No wheezing, No rhonchi, No dyspnea. No stridor or accessory muscle use. Heart/Chest: Regular rhythm, rate. No murmurs. No peripheral edema. No chest wall TTPAbd: Soft, non-tender, non-distended, no rebound, guarding, or peritoneal sxs. No palpable masses or pulsatile masses. Negative [place] Sign. No TTP at [facility] PointExt: Gait steady, no obvious deformity. No peripheral edema. NVI.Back: Painless ROMNeuro: awake and alert, speech NL for age, behavior age-appropriate. Skin: color NL, normal temperature, intact, no visible rashes Interpretation Diagnostics Lab Results InterpretationResultsMicrobiology: Date/Time Procedure - Status Source Growth 09/01 429 Group A Streptococcus Screen (BETTY) - RES THROAT 09/01 429 Streptococcus Culture - RES THROAT 09/01 429 Influenza Virus Type B Antigen - COMP NASOPHARG 09/01 429 Influenza Virus Type A Antigen - COMP NASOPHARG Lab StatementLaboratory studies reviewed and considered in the medical decision-making. Re-Evaluation MDM ED CourseMedication(s) OrderedMedication(s) Ordered:Central Nervous System Agents Sig/Ike Start time Last Medication Dose Route Stop Time Status Admin Ibuprofen 800 MG X1ED STA 09/01 0409 DC 09/01 PO 09/01 0410 0413 Eye, Ear, Nose And Throat (Een Sig/Ike Start time Last Medication Dose Route Stop Time Status Admin Dexamethasone 10 MG X1ED STA 09/01 0408 DC 09/01 PO 09/01 0409 0413 Patient Discharge Departure Vital Signs/ConditionVital SignsFirst Documented: Result Date Time Pulse Ox 99 09/01 0416 B/P 113/58 09/01 0416 B/P Mean 76 09/01 0416 O2 Delivery Room air 09/01 415 Temp 36.9 09/01 0416 Pulse 80 09/01 0416 Resp 16 09/01 0416 Last Documented: Result Date Time Pulse Ox 99 09/01 0940 B/P 124/80 09/01 0940 B/P Mean 94 09/01 0940 O2 Delivery Room air 09/01 939 Temp 37.1 09/01 939 Pulse 74 09/01 09 Resp 18 09/01 939 All vital signs available at the time of this entry have been reviewed. Condition Stable Discharge/Care PlanCounseled Regarding Diagnosis, Lab results, Prescriptions, Need for follow-up, When to return to EDAdditional InstructionsPlease seek medical attention or return to ER if symptoms persist despite treatment or if new or worsening symptoms develop. Please follow up with your pcp or recommended specialist within 1-3 days. Taurus Kirk 09/01/20 0927:HPI-Sore Throat GeneralInitial Greet Date/Time 09/01/20 0407 Interpretation Diagnostics Point of Care TestingMicro Interpretation Influenza rapid - neg, Strep rapid - negPulse Oximetry Pulse Ox % 99 On: Room air Interpretation Interpreted by me, Pulse oximetry normal Time 0416 Re-Evaluation MDM Re-Evaluation/ProgressRe-Evaluation/Progress Text/Dict Noteresting comfortable in chair on phone. informed of results, home with d/c instructions for homecare with possible covid. Time of Re-Eval 929 Re-Eval Status stable Patient Discharge Departure Clinical ImpressionClinical ImpressionPrimary Impression: Sore throatSecondary Impressions: Person under investigation for COVID-19 Disposition DecisionDischarge )( Discharged to Home Yes )( Time 928 )( Date 09/01/20 Discharge/Care Plan(Auto) PrescriptionsCurrent Visit ScriptsLIDOCAINE (LIDOCAINE 2% VISCOUS) 15 ML PO Q3H PRN PRN PAIN LIDOCAINE (LIDOCAINE 2% VISCOUS) 15 ML PO Q3H PRN PRN PAIN #300 ML Prescriptions Reviewed Risks, Benefits, Alternative treatmentPatient Instructions COVID-19 Home Care, ED Pharyngitis, ViralReferralsPRIMARY CARE: 2-3 DaysPLEASE FOLLOW UP WITH YOUR PRIMARY CARE PROVIDER IN THE NEXT 2-3 DAYS AT THE LATEST FOR REPEAT EVALUATION AND POSSIBLE ADDITIONAL TESTING AND/OR REFERRALS FOR YOUR CONDITION If you do not have a primary care provider please feel free to contact one of the following providers/options below: 1) Raymundo Ko MD [address] [facility] [address] [place] [address] 2) Augie Ross MD [address] [place] [address] 3) Alfred Valle MD [address] [place] [address] 4) [place] [address] [place] [address] 5) Evangelista Perez MD [address] [place] [address] at 0513 at 2145RPT #:[id number] OF REPORTEDEmergency department [id number]:29:00G.[id number] ilable for patient eygcGGETEDGAAPMQMV9732-25-57D16:45:59 [facility] 2020-09-01 04:29:00 [id number] [id number] 7+9DR8hhx4GVtoR5gVcGCqb2/LQsn8qj8g4648-04-99I53:2 9:00 [facility]EMER[facility] PROVIDER REPORTREPORT#:[id number] REPORT STATUS: SignedDATE:09/01/20 TIME: 428 PATIENT: RAMA EDGAR UNIT #: [id number]#: [id number] ROOM/BED:AGE: 30 SEX: F PCP PHYS: No Primary or Family PhysicianSERVICE AUTHOR: Tl Mitchell OIL DISPENSER * ALL edits or amendments must be made on the electronic/computer document * Tl Mitchell 09/01/20 0429:HPI-Sore Throat PresentationChief Complaint Sore throatHx Obtained From Patient Free Text HPI NotesFree Text HPI [id number]-[id number] female without significant past medical history presents to the ER with complaint of sore throat onset 3 days ago. She notes associated headache and general malaise. She denies any fever, chills, voice changes, drooling, chest pain, cough, shortness of breath, abdominal pain, N/V/D or any other symptoms. She has not taken any medications prior to arrival. Of note she saw care at [facility] 9 days ago for sore throat and was noted to have apothous ulcers to posterior palate. Review of Systems ROS StatementsAll systems rev neg except as marked. Focused Review of SystemsConstitutionalReports: Malaise. Ears/Nose/ThroatReports: Sore throat. NeurologicReports: Headache. Past Medical History - AdultStated Complaint HOT FLASHES SORE THROAT COUGH AND TIREDAllergiesCoded Allergies:No Known Allergies (08/23/20) Calculated suicide risk level: No riskAdditional Surgical HistoryI D ABSCESSFamily History:Reports: Diabetes, Hypertension. Alcohol Use Denies EtOH useDrug Use Denies recreational drugsSmoking status for patients 13 years old or older: Never Smoker Physical Exam Vital SignsVital SignsFirst Documented: Result Date Time Pulse Ox 99 09/01 0416 B/P 113/58 09/01 041 B/P Mean 76 09/016 O2 Delivery Room air 09/01 415 Temp 36.9 09/01 415 Pulse 80 09/01 0416 Resp 16 09/01 415 Last Documented: Result Date Time Pulse Ox 99 09/01 939 B/P 124/80 09/01 939 B/P Mean 94 09/01 939 O2 Delivery Room air 09/01 939 Temp 37.1 09/01 939 Pulse 74 09/01 939 Resp 18 09/01 939 Review of Vital Signs Reviewed Free Text PE NotesFree Text PE NotesGen: Well appearing, appears comfortable, cooperativeHead: Normocephalic, atraumatic No mastoid swelling or TTPNose: no nasal drainage or sinus TTPThroat: Moist mucous membranes, handling secretions. Airway patent. OP clear without exudates or petechia. No tonsillar edema or erythema. No adenopathyNeck: FROM, non-tender, no visible edema, no meningismusLungs: CTA all lobes. Respirations NL. No wheezing, No rhonchi, No dyspnea. No stridor or accessory muscle use. Heart/Chest: Regular rhythm, rate. No murmurs. No peripheral edema. No chest wall TTPAbd: Soft, non-tender, non-distended, no rebound, guarding, or peritoneal sxs. No palpable masses or pulsatile masses. Negative [place] Sign. No TTP at [place] PointExt: Gait steady, no obvious deformity. No peripheral edema. NVI.Back: Painless ROMNeuro: awake and alert, speech NL for age, behavior age-appropriate. Skin: color NL, normal temperature, intact, no visible rashes Interpretation Diagnostics Lab Results InterpretationResultsMicrobiology: Date/Time Procedure - Status Source Growth 01/10 0430 Group A Streptococcus Screen (BETTY) - RES THROAT 09/01 429 Streptococcus Culture - RES THROAT 09/01 429 Influenza Virus Type B Antigen - COMP NASOPHARG 09/01 429 Influenza Virus Type A Antigen - COMP NASOPHARG Lab StatementLaboratory studies reviewed and considered in the medical decision-making. Re-Evaluation MDM ED CourseMedication(s) OrderedMedication(s) Ordered:Central Nervous System Agents Sig/Ike Start time Last Medication Dose Route Stop Time Status Admin Ibuprofen 800 MG X1ED STA 09/01 0409 DC 09/01 PO 09/01 0410 0413 Eye, Ear, Nose And Throat (Een Sig/Ike Start time Last Medication Dose Route Stop Time Status Admin Dexamethasone 10 MG X1ED STA 09/01 0408 DC 09/01 PO 09/01 040 0413 Patient Discharge Departure Vital Signs/ConditionVital SignsFirst Documented: Result Date Time Pulse Ox 99 09/01 0416 B/P 113/58 09/01 0416 B/P Mean 76 09/01 0416 O2 Delivery Room air 09/01 0416 Temp 36.9 09/01 0416 Pulse 80 09/01 0416 Resp 16 09/01 0416 Last Documented: Result Date Time Pulse Ox 99 09/01 0940 B/P 124/80 09/01 0940 B/P Mean 94 09/01 0940 O2 Delivery Room air 09/01 0940 Temp 37.1 09/01 0940 Pulse 74 09/01 0940 Resp 18 09/01 0940 All vital signs available at the time of this entry have been reviewed. Condition Stable Discharge/Care PlanCounseled Regarding Diagnosis, Lab results, Prescriptions, Need for follow-up, When to return to EDAdditional InstructionsPlease seek medical attention or return to ER if symptoms persist despite treatment or if new or worsening symptoms develop. Please follow up with your pcp or recommended specialist within 1-3 days. Taurus Kirk 09/01/20 0927:Interpretation Diagnostics Point of Care TestingMicro Interpretation Influenza rapid - neg, Strep rapid - negPulse Oximetry Pulse Ox % 99 On: Room air Interpretation Interpreted by me, Pulse oximetry normal Time 0416 Re-Evaluation MDM Re-Evaluation/ProgressRe-Evaluation/Progress Text/Dict Noteresting comfortable in chair on phone. informed of results, home with d/c instructions for homecare with possible covid. Time of Re-Eval 929 Re-Eval Status stable Patient Discharge Departure Clinical ImpressionClinical ImpressionPrimary Impression: Sore throatSecondary Impressions: Person under investigation for COVID-19 Disposition DecisionDischarge )( Discharged to Home Yes )( Time 928 )( Date 09/01/20 Discharge/Care Plan(Auto) PrescriptionsCurrent Visit ScriptsLIDOCAINE (LIDOCAINE 2% VISCOUS) 15 ML PO Q3H PRN PRN PAIN LIDOCAINE (LIDOCAINE 2% VISCOUS) 15 ML PO Q3H PRN PRN PAIN #300 ML Prescriptions Reviewed Risks, Benefits, Alternative treatmentPatient Instructions COVID-19 Home Care, ED Pharyngitis, ViralReferralsPRIMARY CARE: 2-3 DaysPLEASE FOLLOW UP WITH YOUR PRIMARY CARE PROVIDER IN THE NEXT 2-3 DAYS AT THE LATEST FOR REPEAT EVALUATION AND POSSIBLE ADDITIONAL TESTING AND/OR REFERRALS FOR YOUR CONDITION If you do not have a primary care provider please feel free to contact one of the following providers/options below: 1) Raymundo Ko MD [address] [place] [address] 2) Augie Ross MD [address] [place] [address] 3) Alfred Valle MD [address] [place] [address] 4) [place] [address] [place] [address] 5) Evangelista Perez MD [address] [facility], [address] [place] [address] Boris Juares 09/01/20 2333:HPI-Sore Throat GeneralIniohiohealth [facility] Greet Date/Time 09/01/20 0407 Patient Discharge Departure Supervising Physician Note MidLv Saw Pt AloneI have reviewed the PA/OIL DISPENSER's note and plan of care. I was available for consultation as needed at all times during the patient's visit in the emergency department. I agree with the clinical impression, plan and disposition. at 0513 at 2145 at 2333RPT #:[id number] OF REPORTEDEmergency department seasxr4646-32-67J15:29:00G.[id number] ilable for patient cfqiEJPRFXQDIUIOYR1076-27-98L99:33:41 [facility] 2020-08-23 06:16:00 [id number]/e7l6ppvRZoRhS30 nkpsgiX/NX1xk2UHf9gCyuwUJdlIFu3P4S4249-68-96D05:1 6:00 [facility] REPORTREPORT#:[id number] REPORT STATUS: SignedDATE:08/23/20 TIME: 06 PATIENT: RAMA EDGAR UNIT #: [id number]#: [id number] ROOM/BED:AGE: 30 SEX: F PCP PHYS: URGENT CARE CENTERSERVICE AUTHOR: Avis Martinez MD * ALL edits or amendments must be made on the electronic/computer document * HPI-Dental/Mouth Prob GeneralInitial Greet Date/Time 08/23/20 0606PCPnone PresentationChief Complaint Oral soresHx Obtained From Patient ContextPregnancy/Sexual Hx Last Menstrual Period 08/11/20 Free Text HPI NotesFree Text HPI NotesPatient complaining of canker sores in mouth pain and a sore throat for 1 week. No fever. No cough. No runny nose complained of nausea but no vomiting or diarrhea. Review of Systems ROS StatementsAll systems rev neg except as marked. Focused Review of SystemsEars/Nose/ThroatReports: Mouth pain. Past Medical History - AdultStated Complaint CANKER SORESAllergiesCoded Allergies:No Known Allergies (08/23/20) Pt reports no significant: Past medical historyAdditional Surgical HistoryI D ABSCESSFamily History:Reports: Diabetes, Hypertension. Alcohol Use Denies EtOH useDrug Use Denies recreational drugsSmoking status for patients 13 years old or older: Never SmokerAmbulatory Status Independent Physical Exam Vital SignsVital SignsFirst Documented: Result Date Time Pulse Ox 99 08/23 0605 B/P 128/78 08/23 0605 B/P Mean 94 08/23 0605 O2 Delivery Room air 08/23 0605 Temp 36.7 08/23 0605 Pulse 98 08/23 0605 Resp 18 08/23 0605 Last Documented: Result Date Time Pulse Ox 99 08/23 0605 B/P 128/78 08/23 0605 B/P Mean 94 08/23 0605 O2 Delivery Room air 08/23 0605 Temp 36.7 08/23 0605 Pulse 98 08/23 0605 Resp 18 08/23 0605 Review of Vital Signs Reviewed Basic Physical ExamBasic PE GEN: Well appearing/NAD, HEAD: Atraumatic/NC, EYES: PERRL, conj clear, RESP: No resp distress, CV: Reg rate rhythm, ABD: Soft/non-tender, EXT: No gross abnormality, SKIN: No rashes, warm/dry, NEURO: alert oriented, NEURO: gross movement NL, PSYCH: NL thought content Focused PEEars/Nose/Throat Ears/Nose/Throat Airway patent, Mucous membranes moist, Pharynx NL, Tympanic membs NL, Gums/dentition NL Text/Dict NotesGeographic tongue noted. Single 2 to 3 mm aphthous ulcer noted on the roof of the soft palate. No trismus. No dental abscesses noted. Uvula midline. No tonsillar exudate or swelling.MS Neck Neck Supple, No meningismus, No adenopathyNeurologic Neurologic Speech NL, No motor deficits, Gait NL Interpretation Diagnostics Lab Results InterpretationResultsMicrobiology: Date/Time Procedure - Status Source Growth 08/23 0617 Group A Streptococcus Screen (BETTY) - COMP THROAT Lab StatementLaboratory studies reviewed and considered in the medical decision-making. Point of Care TestingMicro Interpretation Strep rapid - neg Re-Evaluation MDM Re-Evaluation/ProgressRe-Evaluation/Progress Time of Re-Eval 0639 Re-Eval Status Unchanged Patient Discharge Departure Vital Signs/ConditionVital SignsFirst Documented: Result Date Time Pulse Ox 99 08/23 0605 B/P 128/78 08/23 0605 B/P Mean 94 08/23 0605 O2 Delivery Room air 08/23 0605 Temp 36.7 08/23 604 Pulse 98 08/23 0605 Resp 18 08/23 604 Last Documented: Result Date Time Pulse Ox 99 08/23 604 B/P 128/78 08/23 604 B/P Mean 94 08/23 604 O2 Delivery Room air 08/23 604 Temp 36.7 08/23 604 Pulse 98 08/23 06 Resp 18 08/23 06 All vital signs available at the time of this entry have been reviewed. Condition Stable Clinical ImpressionClinical ImpressionPrimary Impression: Geographic tongueSecondary Impressions: Aphthous ulcer Disposition DecisionDischarge )( Discharged to Home Yes )( Time 0638 )( Date 08/23/20 Discharge/Care PlanCounseled Regarding Diagnosis, Lab results, Need for follow-up, When to return to EDPatient Instructions [facility] Discharge NoteI have spoken with the patient and/or caregivers. I have explained the patient'scondition, diagnoses and treatment plan based on the information available to meat this time. I have answered the patient's and/or caregiver's questions and addressed any concerns. The patient and/or caregivers have as good an understanding of the patient's diagnosis, condition and treatment plan as can beexpected at this point. The vital signs have been stable. The patient's condition is stable and appropriate for discharge from the emergency department. The patient will pursue further outpatient evaluation with the primary care physician or other designated or consulting physician as outlined in the discharge instructions. The patient and/or caregivers are agreeable to this planof care and follow-up instructions have been explained in detail. The patient and/or caregivers have received these instructions in written format and have expressed an understanding of the discharge instructions. The patient and/or caregivers are aware that any significant change in condition or worsening of symptoms should prompt an immediate return to this or the closest emergency department or a call to 911. Quality MeasuresBP F/U for HTN F/u with PCP/other docSmoking Cessation Screened, non user at 0642RPT #:[id number] OF REPORTNorth [facility] department [id number] vtable for patient [id number] [facility]
--- NOTE | 2023-09-03 11:49 | EDPHYS ---
Physician Documentation [facility] Name: Anastasia Edgar Age: 33 yrs Sex: Female : 1990 Arrival Date: 09/03/2023 Time: 11:22 Bed IW6 Private MD: ED Physician Chavez Daniel HPI: 09/03 11:48 This 33 yrs old Female presents to ER via Ambulatory with complaints of Flu ec2 Symptoms. 11:48 Patient arrives today for evaluation of cough and cold symptoms. Patient has been ec2 experiencing 3 days of symptoms. States he is having a persistent cough, also complaining of decreased appetite as well as nausea and vomiting. Reports a history of multiple individuals with the same complaints.. Historical: - Allergies: 11:43 Bactrim; hb 11:43 Sulfa (Sulfonamide Antibiotics); hb - Home Meds: 11:44 None [Active]; hb - PMHx: 11:43 Anxiety; cervical CA; chiari malformation; Depression; Migraines; hb - Immunization history:: Adult Immunizations up to date. - Social history:: Smoking status: Patient reports the use of cigarette tobacco products, 4 per day. ROS: 11:48 Constitutional: as per hpi ec2 Exam: 11:48 Constitutional: GEN: NAD Head: atraumatic Eyes: EOMI Ears: External ears are ec2 normal. CV: regular rate LUNGS: no respiratory distress, no wheezes, rales, or rhonchi ABD: non-distended SKIN: no evidence of rashes MSK: no evidence of trauma NEURO: moves all extremities equally Vital Signs: 11:42 BP 136 / 86; Pulse 95; Resp 18; Temp 97.4(TE); Pulse Ox 100% on R/A; Weight 63.5 kg; hb Height 4 ft. 11 in. ; Pain 3/10; 11:42 Body Mass Index 28.28 (63.50 kg, 149.86 cm) hb 11:42 Pain Scale: Adult hb MDM: 11:47 Patient medically screened. ec2 11:48 Data reviewed: vital signs. ED course: Patient arrives today for evaluation of URI ec2 signs and symptoms. Examination remarkable for well-appearing nontoxic individual is otherwise in no acute distress with a reassuring examination. Low suspicion for pneumonia given the reassuring lung examination, do not feel she would benefit from any lab work given the reassuring vital signs and her story.. 11:50 ED course: Additionally viral swabs would not be management changing. . ec2 Administered Medications: No medications were administered Disposition Summary: 09/03/23 11:48 Discharge Ordered Notes: Location: Home ec2 Condition: Stable ec2 Diagnosis - Viral infection, unspecified ec2 Followup: ec2 - With: Private Physician - When: - Reason: Recheck today's complaints Discharge Instructions: - Discharge Summary Sheet hb - Viral Illness, Adult ec2 Forms: - Medication Reconciliation Form ec2 - Thank You Letter ec2 - Antibiotic Education ec2 - Prescription Opioid Use ec2 - Patient Portal Instructions ec2 - Leadership Thank You Letter ec2 Prescriptions: - Reglan 10 mg Oral Tablet - take 1 tablet ORAL route every 6 hours take 30 minutes before meals and at ec2 bedtime; 20 tablet; Refills: 0, Product Selection Permitted - Tessalon Perles 100 mg Oral Capsule - take 1 capsule ORAL route every 8 hours As needed; 15 capsule; Refills: 0, ec2 Product Selection Permitted Signatures: Paulina Pretty RN RN Chavez Daniel MD MD ec2
--- NOTE | 2023-09-03 11:49 | ER ---
Nurse's Notes [facility] Name: Anastasia Edgar Age: 33 yrs Sex: Female : 1990 Arrival Date: 09/03/2023 Time: 11:22 Bed IW6 Private MD: Diagnosis: Viral infection, unspecified Presentation: 09/03 11:42 Chief complaint: N/V x 3 days, cough and SOB x 2 days. Coronavirus screen: Client hb presents with at least one sign or symptom that may indicate coronavirus-19. Standard/surgical mask placed on the client. Provider contacted for isolation considerations. Ebola Screen: No symptoms or risks identified at this time. Initial Sepsis Screen: Does the patient meet any 2 criteria? HR > 90 bpm. No. Patient's initial sepsis screen is negative. Does the patient have a suspected source of infection? No. Patient's initial sepsis screen is negative. Risk Assessment: Do you want to hurt yourself or someone else? Patient reports no desire to harm self or others. Onset of symptoms was August 31, 2023. 11:42 Method Of Arrival: Ambulatory hb 11:42 Acuity: MOISES 4 hb Triage Assessment: 11:45 General: Appears in no apparent distress. Behavior is calm, cooperative. Pain: Pain hb currently is 3 out of 10 on a pain scale. Neuro: Level of Consciousness is awake, alert, obeys commands, Oriented to person, place, time, situation. Cardiovascular: Patient's skin is warm and dry. Respiratory: Respiratory effort is even, unlabored, Respiratory pattern is regular, symmetrical. Historical: - Allergies: 11:43 Bactrim; hb 11:43 Sulfa (Sulfonamide Antibiotics); hb - Home Meds: 11:44 None [Active]; hb - PMHx: 11:43 Anxiety; cervical CA; chiari malformation; Depression; Migraines; hb - Immunization history:: Adult Immunizations up to date. - Social history:: Smoking status: Patient reports the use of cigarette tobacco products, 4 per day. Screenin:45 [facility] ED Fall Risk Assessment (Adult) Score/Fall Risk Level 0 - 2 = Low Risk hb Oriented to surroundings, Maintained a safe environment, Educated pt \T\ family on fall prevention, incl call for assistance when getting out of bed. Abuse screen: Denies threats or abuse. Denies injuries from another. Nutritional screening: No deficits noted. Tuberculosis screening: No symptoms or risk factors identified. Assessment: 11:45 General: See triage assessment . hb 12:02 Reassessment: Patient is alert, oriented x 3, equal unlabored respirations, skin aa5 warm/dry/pink. Vital Signs: 11:42 BP 136 / 86; Pulse 95; Resp 18; Temp 97.4(TE); Pulse Ox 100% on R/A; Weight 63.5 kg; hb Height 4 ft. 11 in. ; Pain 3/10; 11:42 Body Mass Index 28.28 (63.50 kg, 149.86 cm) hb 11:42 Pain Scale: Adult hb ED Course: 11:24 Patient arrived in ED. mr 11:25 Chavez Daniel MD is Attending Physician. ec2 11:43 Triage completed. hb 11:44 Arm band placed on. hb 11:45 Patient has correct armband on for positive identification. Provided Education on: . hb 11:45 No provider procedures requiring assistance completed. Patient did not have IV access hb during this emergency room visit. Administered Medications: No medications were administered Medication: 11:45 VIS not applicable for this client. hb Outcome: 11:48 Discharge ordered by . ec2 12:02 Discharged to home ambulatory, hb 12:02 Condition: stable 12:02 Discharge instructions given to patient, Instructed on discharge instructions, follow up and referral plans. medication usage, Demonstrated understanding of instructions, follow-up care, medications, Prescriptions given X 2, 12:03 Patient left the ED. hb Signatures: Jenelle Cuenca, Reg Reg Ava Martin RN RN aa5 Paulina Pretty RN RN hb Corral, Edwin, MD MD ec2
[2023-09-03 13:09] VITALS: BP 136/86; TEMP 97.4; O2SAT 100
== END ==
LOC: ER 11:22
DX: B34.9 Viral infection, unspecified (principal); R05.9 Cough, unspecified; Z72.0 Tobacco use; Z88.1 Allergy status to other antibiotic agents; Z88.2 Allergy status to sulfonamides
CPT/HCPCS: 99283